=== PATIENT | female | born 1930 | race Caucasian/White ===

== ENCOUNTER 2016-11-27 19:18 | Emergency (ER) | payer MEDICARE, OTHER ==
[2016-11-27 21:54] LABS: Hematocrit 36 % (35-47); Hemoglobin 12.2 g/dl (12.0-16.0); Mean Corpuscular HGB Conc 33 g/dl (31-36); Mean Corpuscular Hemoglobin 30 pg (27-31); Mean Corpuscular Volume 90 fL (80-97); Mean Platelet Volume 9 um3 (7.4-10.4); Red Blood Count 4.06 10^6/ul (4.0-5.4); Red Cell Distribution Width 15 % (10.5-15); White Blood Count 6.8 10^3/ul (3.5-10.8)
[2016-11-27 21:55] VITALS: BP 135/60
[2016-11-27 22:08] LABS: BUN/Creatinine Ratio 22.8 (8-20); Calcium 9.3 mg/dL (8.6-10.3); EGFR African American 42.8 (>60); EGFR Non-African American 33.3 (>60); Potassium 3.9 mmol/L (3.5-5.0)
--- NOTE | 2016-11-27 22:09 | ED ---
I, Bruce,Darryn, scribed for Samson Hobbs MD on 11/27/16 at 2101 . Lower Extremity - HPI Summary HPI Summary: This 86 y/o female presents to ED for acute LLE ankle swelling and redness that was noted this afternoon while pt was putting on some lotion. Pt denies any known injury or pain at this moment. PMHx is significant for afib, which is currently controlled with coumadin. Other PMHx includes HTN, scoliosis, COPD with home oxygen use, hypothyroidism, HTN, and HLD. - History of Current Complaint Chief Complaint: EDExtremityLower Stated Complaint: LT LEG SWOLLEN Time Seen by Provider: 11/27/16 20:52 Hx Obtained From: Patient, Medical Records Mechanism Of Injury: Unknown Onset of Pain: Hours Pain Intensity: 6 Pain Scale Used: 0-10 Numeric Timing: Constant Location: Is Discrete @ - LLE ankle Associated Signs And Symptoms: Positive: Swelling, Redness Aggravating Factor(s): Nothing Alleviating Factor(s): Nothing Able to Bear Weight: Yes - Allergies/Home Medications Allergies/Adverse Reactions: Allergies Allergy/AdvReac Type Severity Reaction Status Date / Time Clarithromycin [From Biaxin] Allergy Rash Verified 11/27/16 19:48 PMH/Surg Hx/FS Hx/Imm Hx Endocrine/Hematology History: Reports: Hx Anticoagulant Therapy - coumadin Cardiovascular History: Reports: Hx Atrial Fibrillation, Hx Hypertension Denies: Hx Pacemaker/ICD Respiratory History: Reports: Hx Chronic Obstructive Pulmonary Disease (COPD), Other Respiratory Problems/Disorders - PNA Sensory History: Denies: Hx Hearing Aid Psychiatric History: Denies: Hx Panic Disorder - Surgical History Surgery Procedure, Year, and Place: KNEE 2002, HAND 20+YRS AGO, BACK SURGERY FOR SCOLIOSIS AGE 14, TOTAL HYSTERECTOMY, CATARACTS, RETINA SURGERY TO REPLACE A HOLE IN RETINA 1993(?) Infectious Disease History: No Infectious Disease History: Denies: Traveled Outside the [place] in Last 30 Days - Family History Known Family History: Positive: Cardiac Disease - Positive for CAD - Social History Alcohol Use: None Hx Substance Use: No Substance Use Type: Reports: None Hx Tobacco Use: No Smoking Status (MU): Never Smoked Tobacco Review of Systems Negative: Fever Positive: Other - LLE ankle swelling and erythema All Other Systems Reviewed And Are Negative: Yes Physical Exam Triage Information Reviewed: Yes Vital Signs On Initial Exam: Initial Vitals Temp Pulse Resp BP Pulse Ox 98.2 F 52 14 144/57 100 11/27/16 19:44 11/27/16 19:44 11/27/16 19:44 11/27/16 19:44 11/27/16 19:44 Vital Signs Reviewed: Yes Appearance: Positive: Well-Appearing, No Pain Distress Skin: Positive: Warm Head/Face: Positive: Normal Head/Face Inspection ENT: Positive: Hearing grossly normal Neck: Positive: Supple Respiratory/Lung Sounds: Positive: Breath Sounds Present Cardiovascular: Positive: RRR Abdomen Description: Positive: Nontender, Soft Musculoskeletal: Positive: Other - rt ankle mild swelling with patchy ecchymosis , non tender. from Neurological: Positive: Alert, Oriented to Person Place, Time Psychiatric: Positive: Affect/Mood Appropriate Diagnostics - Vital Signs Vital Signs Temp Pulse Resp BP Pulse Ox 11/27/16 19:44 98.2 F 52 14 144/57 100 - Laboratory Lab Results: Lab Results 11/27/16 11/27/16 11/27/16 Range/Units 21:47 21:47 21:47 WBC 6.8 (3.5-10.8) 10^3/ul RBC 4.06 (4.0-5.4) 10^6/ul Hgb 12.2 (12.0-16.0) g/dl Hct 36 (35-47) % MCV 90 (80-97) fL MCH 30 (27-31) pg MCHC 33 (31-36) g/dl RDW 15 (10.5-15) % Plt Count 145 L (150-450) 10^3/ul MPV 9 (7.4-10.4) um3 Neut % (Auto) 64.2 (38-83) % Lymph % (Auto) 22.3 L (25-47) % Andrew % (Auto) 11.1 H (1-9) % Eos % (Auto) 1.5 (0-6) % Baso % (Auto) 0.9 (0-2) % Absolute Neuts (auto) 4.3 (1.5-7.7) 10^3/ul Absolute Lymphs (auto) 1.5 (1.0-4.8) 10^3/ul Absolute Monos (auto) 0.7 (0-0.8) 10^3/ul Absolute Eos (auto) 0.1 (0-0.6) 10^3/ul Absolute Basos (auto) 0.1 (0-0.2) 10^3/ul Absolute Nucleated RBC 0.01 10^3/ul Nucleated RBC % 0.1 INR (Anticoag Therapy) 1.29 H (0.89-1.11) Sodium 135 (133-145) mmol/L Potassium 3.9 (3.5-5.0) mmol/L Chloride 95 L (101-111) mmol/L Carbon Dioxide 36 H (22-32) mmol/L Anion Gap 4 (2-11) mmol/L BUN 34 H (6-24) mg/dL Creatinine 1.49 H (0.51-0.95) mg/dL Est GFR ( Amer) 42.8 (>60) Est GFR (Non-Af Amer) 33.3 (>60) BUN/Creatinine Ratio 22.8 H (8-20) Glucose 97 (70-100) mg/dL Calcium 9.3 (8.6-10.3) mg/dL Result Diagrams: 11/27/16 21:47 11/27/16 21:47 Lab Statement: Any lab studies that have been ordered have been reviewed, and results considered in the medical decision making process. Re-Evaluation - Re-Evaluation First Eval Change: Improved Lower Extremity Course/Dx - Diagnoses Provider Diagnoses: Ankle swelling Discharge - Discharge Plan Condition: Improved Disposition: HOME Patient Education Materials: Swollen Ankle Joint (ED) Referrals: [facility]ERRAL [Outside] - 2 Days The documentation as recorded by the Bruce eugene Soohyun accurately reflects the service I personally performed and the decisions made by Anjel prieto David, MD.
== END 2016-11-27 22:38 | disposition home or self-care (01) ==
LOC: ED 19:18
DX: R60.0 Localized edema (principal)
CPT/HCPCS: 36415; 80048; 85025; 85610; 99282

== ENCOUNTER 2016-12-04 09:56 | Emergency (ER) | payer MEDICARE, OTHER ==
--- NOTE | 2016-12-04 11:16 | RAD ---
Indication: Cough, shortness of breath. 2 views of the chest are reviewed. Comparison is made with previous exam dated June 27, 2016. Cardiomegaly is noted. Lung head demonstrate no pleural fluid, pneumonia or pneumothorax. Pleural thickening is noted in the right lateral chest. Tortuous descending aorta is noted. IMPRESSION: No active cardiopulmonary disease is noted. No changes noted since prior exam.
[2016-12-04 12:23] VITALS: BP 138/70
--- NOTE | 2016-12-04 12:24 | UC ---
Daniel Tripp SooYoung, scribed for Daxa Winchester MD on 12/04/16 at 1039 . Respiratory Complaint HPI - HPI Summary HPI Summary: An 86 y/o F presents to [facility] with c/o productive cough and rhinorrhea onset four days ago. Associated sx: chest "pressure" described as feeling heavy, pedal edema which is baseline for pt. Denies rash. Pt was seen by her PCP's [facility] four days ago and was given a Zpack but she states feeling worse. She was also seen in ED on 11/27/2016 for ecchymosis on LLE. She says she's sleeping well at night. On 2L home oxygen. Denies PMHx: pulmonary edema, CHF, CT. - History of Current Complaint Stated Complaint: URI Time Seen by Provider: 12/04/16 10:28 Hx Obtained From: Patient, Family/Engineering Administrator - son Onset/Duration: Gradual Onset, Lasting Days, Still Present Timing: Constant Severity Initially: Moderate Severity Currently: Moderate Pain Intensity: 0 Pain Scale Used: 0-10 Numeric Character: Cough: Productive Aggravating Factors: Deep Breaths - Allergies/Home Medications Allergies/Adverse Reactions: Allergies Allergy/AdvReac Type Severity Reaction Status Date / Time Clarithromycin [From Biaxin] Allergy Rash Verified 11/27/16 19:48 PMH/Surg Hx/FS Hx/Imm Hx Previously Healthy: No Cardiovascular History Of: Reports: Cardiac Disorders - afib, Hypertension, Atrial Fibrillation Denies: Pacemaker/ICD Respiratory History Of: Reports: COPD GI/ History Of: Reports: Gastroesophageal Reflux Other History Of: Anticoagulant Therapy - coumadin - Surgical History Surgical History: Yes Surgery Procedure, Year, and Place: KNEE 2002, HAND 20+YRS AGO, BACK SURGERY FOR SCOLIOSIS AGE 14, TOTAL HYSTERECTOMY, CATARACTS, RETINA SURGERY TO REPLACE A HOLE IN RETINA 1993(?) - Family History Known Family History: Positive: Cardiac Disease - Positive for CAD - Social History Occupation: Retired Lives: With Family Alcohol Use: None Substance Use Type: None Smoking Status (MU): Never Smoked Tobacco Review of Systems ENT: Other - rhinorrhea Respiratory: Cough - productive Cardiovascular: Chest Pain - chest "heavy" Musculoskeletal: Edema - pedal edema, baseline All Other Systems Reviewed And Are Negative: Yes Physical Exam Triage Information Reviewed: Yes Appearance: Well-Nourished, Obese, Other: - sitting up in chair, leaning over. Looks tired. 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 chronicaly leans over). Vital Signs: Initial Vital Signs Temp 97.3 F 12/04/16 10:38 Pulse 48 12/04/16 10:38 Resp 18 12/04/16 10:38 BP 140/70 12/04/16 10:38 Pulse Ox 97 12/04/16 10:38 Vital Signs Reviewed: Yes Eye Exam: Normal ENT Exam: Normal - grossly normal Neck exam: Other - kyphotic. difficult to appreciate +/- jvd. Respiratory Exam: Other - Kyphotic, scoliotic spine appearance. Decreased Bilat Breath sounds. + scattered rhonchi. Cardiovascular: Positive: Bradycardia - HR correlates with R radial pulse Irregular vs some skipped beats Abdominal Exam: Other - obese, soft. No c/o pain. Musculoskeletal Exam: Normal Musculoskeletal: Positive: Strength Intact, Other: - BLE edema 2+. + chronic venous insuff changes BLE. Scattered hemosiderosis. Neurological Exam: Normal - nonfocal, grossly intact Psychological Exam: Normal - conversing easily and appropriately Psychological: Positive: Normal Response To Family Skin Exam: Normal - no visible or reported rash UC Diagnostic Evaluation - Radiology Xray Interpretation: No Acute Changes - IMPRESSION: No active cardiopulmonary dz is noted. No changes noted since prior exam. Radiology Interpretation Completed By: Radiologist - EKG Cardiac Rate: Bradycardia - 52 bpm Cardiac Rhythm: Sinus: Normal - similar compared with 01/2016 (in [facility]) Respiratory Course/Dx - Course Course Of Treatment: BP (140/70) but has current hypertension diagnosis. Upon detailed questioning (after chest xray), Ms. Degroot reports that she has been experiencing "heaviness" on her chest, similar to that of a train sitting on her chest. This has been going on the last couple days. Family reports that she experienced similar symptoms, but with L arm radiation approx 2 weeks ago, with spontaneous resolution (details are unclear). She is tired, weak. Unclear if sob perse, she does have copd chronic. She uses chronic O2 NC 2 L, 2 /2 copd. Reviewed CXR report (in [facility], [facility]). Influenza swab neg. EKG - sr 52 bpm. Similar January 2016. Takes coumadin 2/2 hx atrial fib. Occasionally takes oxycodone, not sure of last dose. Recommend transfer to ED for further evaluation and treatment. D/w pt and family, they express understanding and agreement. EMS notified by RN. - Differential Dx/Diagnosis Provider Diagnoses: Chest pressure. Cough - Physician Notification/Consults Discussed Patient Care With: Dr. Robles, ED physician Time Discussed With Above Provider: 11:48 Instructed by Provider To: Transfer - send to [facility] ED Discharge - Discharge Plan Condition: Guarded Disposition: TRANS HIGHER LVL OF CARE FAC Discharge Disposition Comment: [facility] ED Referrals: Daniel Regan MD [Primary Care Provider] - Additional Instructions: Please follow up with your primary care provider per routine. Seek medical attention for worsening problems in the meantime. The documentation as recorded by the Daniel eugene SooYoung accurately reflects the service I personally performed and the decisions made by me, Daxa Winchester MD.
== END 2016-12-04 12:20 | disposition short-term general hospital (02) ==
LOC: UCEAST 09:56
DX: R07.89 Other chest pain (principal); I48.91 Unspecified atrial fibrillation; I10 Essential (primary) hypertension; J44.9 Chronic obstructive pulmonary disease, unspecified; K21.9 Gastro-esophageal reflux disease without esophagitis; Z79.01 Long term (current) use of anticoagulants; E66.9 Obesity, unspecified; R05 Cough; Z99.81 Dependence on supplemental oxygen; Z88.3 Allergy status to other anti-infective agents; Z68.31 Body mass index [BMI] 31.0-31.9, adult
CPT/HCPCS: 71020; 87502; 93005; 99213; G0463

== ENCOUNTER 2016-12-04 12:55 | Observation (INO) | payer MEDICARE, OTHER ==
[2016-12-04] MEDS ORDERED: Albuterol 2.5 MG/3 ML NEB.SOL* (0.083%) INH ONE (13:23)
[2016-12-04] MEDS ORDERED: Aspirin Low Dose CHEW TAB* 81 MG PO ONE (13:23)
[2016-12-04] MEDS ORDERED: methylPREDNISolone SOD SUCC* 125 MG 2 ML VIAL IV ONE (13:36)
[2016-12-04 13:44] LABS: Hematocrit 37 % (35-47); Hemoglobin 11.9 g/dl (12.0-16.0); Mean Corpuscular HGB Conc 33 g/dl (31-36); Mean Corpuscular Hemoglobin 30 pg (27-31); Mean Corpuscular Volume 91 fL (80-97); Mean Platelet Volume 9 um3 (7.4-10.4); Red Blood Count 4.02 10^6/ul (4.0-5.4); Red Cell Distribution Width 15 % (10.5-15); White Blood Count 7.8 10^3/ul (3.5-10.8)
[2016-12-04 14:00] LABS: Albumin 3.9 g/dL (3.2-5.2); BUN/Creatinine Ratio 22.6 (8-20); Calcium 9.8 mg/dL (8.6-10.3); EGFR African American 63.4 (>60); EGFR Non-African American 49.3 (>60); Globulin 2.9 g/dL (2-4); Magnesium 2.3 mg/dL (1.9-2.7); Potassium 3.8 mmol/L (3.5-5.0); Total Bilirubin 0.6 mg/dL (0.2-1.0); Total Protein 6.8 g/dL (6.4-8.9)
[2016-12-04 14:02] LABS: Troponin I 0.02 ng/mL (<0.04)
[2016-12-04 14:53] LABS: T4 9.97 mcg/mL (6.09-12.23)
[2016-12-04 14:54] LABS: TSH (Thyroid Stimulating Horm) 1.46 mcIU/mL (0.34-5.60)
--- NOTE | 2016-12-04 16:10 | ED ---
Jeny Tripp Michael, scribed for Ale Robles MD on 12/04/16 at 1338 . HPI Chest Pain - HPI Summary HPI Summary: 86 y/o female was BIBA to the ED from [facility] for chest pressure and bradycardia to the 40's. The pt is presenting with intermittent episodes of CP that she describes as pressure for the last 3 days. Currently at the ED, the pt reports that the CP has slightly alleviated since arriving to the ED. The pt also c/o a productive cough for the last 3 days and SOB for which she was started on azithromycin 3 days ago by her PCP, who phoned in the RX for the pt. One week ago, the pt was at the ED presenting with bilat LE pain and swelling, which is still present, but eval for DVT was neg. In urgent care influenza swab and CXR were both negative. Pt has home O2 2L, is also DM and has restless leg syndrome. - History of Current Complaint Chief Complaint: EDChestPainROMI Time Seen by Provider: 12/04/16 13:09 Hx Obtained From: Patient, EMS, Medical Records Onset/Duration: Started Days Ago, Still Present Timing: Intermittent Initial Severity: Moderate Current Severity: Mild Pain Intensity: 3 Pain Scale Used: 0-10 Numeric Chest Pain Location: Diffuse Chest Pain Radiates: No Character: Pressure/Squeezing Aggravating Factor(s): Nothing Alleviating Factor(s): Nothing Associated Signs and Symptoms: Positive: Chest Pain, Shortness of Breath, Swelling - bilat LE, Productive Cough, Other: - Bilat LE pain - Allergy/Home Medications Allergies/Adverse Reactions: Allergies Allergy/AdvReac Type Severity Reaction Status Date / Time Clarithromycin [From Biaxin] Allergy Rash Verified 11/27/16 19:48 PMH/Surg Hx/FS Hx/Imm Hx Endocrine/Hematology History: Reports: Hx Anticoagulant Therapy - coumadin, Hx Thyroid Disease - hypothyroidism Cardiovascular History: Reports: Hx Atrial Fibrillation, Hx Hypertension Denies: Hx Pacemaker/ICD Respiratory History: Reports: Hx Asthma, Hx Chronic Obstructive Pulmonary Disease (COPD), Other Respiratory Problems/Disorders - PNA Sensory History: Denies: Hx Hearing Aid Psychiatric History: Denies: Hx Panic Disorder - Surgical History Surgery Procedure, Year, and Place: KNEE 2002, HAND 20+YRS AGO, BACK SURGERY FOR SCOLIOSIS AGE 14, TOTAL HYSTERECTOMY, CATARACTS, RETINA SURGERY TO REPLACE A HOLE IN RETINA 1993(?) Infectious Disease History: No Infectious Disease History: Denies: Traveled Outside the [place] in Last 30 Days - Family History Known Family History: Positive: Cardiac Disease - Social History Occupation: Retired Lives: Alone Alcohol Use: None Hx Substance Use: No Substance Use Type: Reports: None Hx Tobacco Use: No Smoking Status (MU): Never Smoked Tobacco Review of Systems Constitutional: Negative Positive: Chest Pain Positive: Shortness Of Breath, Cough Gastrointestinal: Negative Positive: Myalgia, Other - bilat LE pain and swelling Neurological: Negative Psychological: Normal All Other Systems Reviewed And Are Negative: Yes Physical Exam Triage Information Reviewed: Yes Vital Signs On Initial Exam: Initial Vitals Temp Pulse Resp BP Pulse Ox 97.3 F 51 18 145/69 100 12/04/16 12:57 12/04/16 12:57 12/04/16 12:57 12/04/16 12:57 12/04/16 12:57 Vital Signs Reviewed: Yes Appearance: Positive: Well-Nourished, Ill-Appearing, Pain Distress Skin: Positive: Warm, Skin Color Reflects Adequate Perfusion, Dry, Other - ecchymosis bilat LE. brawny discoloration bilat LE. Head/Face: Positive: Normal Head/Face Inspection Eyes: Positive: EOMI, Conjunctiva Clear ENT: Positive: Normal ENT inspection, Hearing grossly normal. Negative: Muffled /hoarse voice Neck: Positive: Supple Respiratory/Lung Sounds: Positive: Breath Sounds Present, Wheezes - expiratory Cardiovascular: Positive: Pulses are Symmetrical in both Upper and Lower Extremities, Bradycardia. Negative: Murmur Abdomen Description: Positive: Nontender, Soft. Negative: Splenomegaly Musculoskeletal: Positive: Edema Left, Edema Right, Other - severe kyphosis.. Negative: Shahriar Sign Left, Shahriar Sign Right Neurological: Positive: Sensory/Motor Intact, Alert, Oriented to Person Place, Time. Negative: Facial Droop, Focal Deficit @, Slurred Speech Psychiatric: Positive: Affect/Mood Appropriate Diagnostics - Vital Signs Vital Signs Temp Pulse Resp BP Pulse Ox 12/04/16 12:57 97.3 F 51 18 145/69 100 - Laboratory Lab Results: Lab Results 12/04/16 12/04/16 12/04/16 Range/Units 13:24 13:24 13:24 WBC 7.8 (3.5-10.8) 10^3/ul RBC 4.02 (4.0-5.4) 10^6/ul Hgb 11.9 L (12.0-16.0) g/dl Hct 37 (35-47) % MCV 91 (80-97) fL MCH 30 (27-31) pg MCHC 33 (31-36) g/dl RDW 15 (10.5-15) % Plt Count 145 L (150-450) 10^3/ul MPV 9 (7.4-10.4) um3 Neut % (Auto) 72.5 (38-83) % Lymph % (Auto) 15.9 L (25-47) % [place] % (Auto) 9.6 H (1-9) % Eos % (Auto) 1.7 (0-6) % Baso % (Auto) 0.3 (0-2) % Absolute Neuts (auto) 5.7 (1.5-7.7) 10^3/ul Absolute Lymphs (auto) 1.2 (1.0-4.8) 10^3/ul Absolute Monos (auto) 0.8 (0-0.8) 10^3/ul Absolute Eos (auto) 0.1 (0-0.6) 10^3/ul Absolute Basos (auto) 0 (0-0.2) 10^3/ul Absolute Nucleated RBC 0 10^3/ul Nucleated RBC % 0 INR (Anticoag Therapy) 2.22 H (0.89-1.11) APTT 41.8 H (26.0-36.3) seconds D-Dimer, Quantitative < 200 (Less Than 230) ng/mL Sodium 138 (133-145) mmol/L Potassium 3.8 (3.5-5.0) mmol/L Chloride 101 (101-111) mmol/L Carbon Dioxide 33 H (22-32) mmol/L Anion Gap 4 (2-11) mmol/L BUN 24 (6-24) mg/dL Creatinine 1.06 H (0.51-0.95) mg/dL Est GFR ( Amer) 63.4 (>60) Est GFR (Non-Af Amer) 49.3 (>60) BUN/Creatinine Ratio 22.6 H (8-20) Glucose 97 (70-100) mg/dL Lactic Acid (0.5-2.0) mmol/L Calcium 9.8 (8.6-10.3) mg/dL Magnesium 2.3 (1.9-2.7) mg/dL Total Bilirubin 0.60 (0.2-1.0) mg/dL AST 23 (13-39) U/L ALT 22 (7-52) U/L Alkaline Phosphatase 65 (34-104) U/L Total Creatine Kinase 78 (10-223) U/L CK-MB (CK-2) 4.7 (0.6-6.3) ng/mL Troponin I 0.02 (<0.04) ng/mL B-Natriuretic Peptide ( - 100) pg/mL Total Protein 6.8 (6.4-8.9) g/dL Albumin 3.9 (3.2-5.2) g/dL Globulin 2.9 (2-4) g/dL Albumin/Globulin Ratio 1.3 (1-3) TSH 1.46 (0.34-5.60) mcIU/mL Thyroxine (T4) 9.97 (6.09-12.23) mcg/mL 12/04/16 12/04/16 Range/Units 13:24 13:24 WBC (3.5-10.8) 10^3/ul RBC (4.0-5.4) 10^6/ul Hgb (12.0-16.0) g/dl Hct (35-47) % MCV (80-97) fL MCH (27-31) pg MCHC (31-36) g/dl RDW (10.5-15) % Plt Count (150-450) 10^3/ul MPV (7.4-10.4) um3 Neut % (Auto) (38-83) % Lymph % (Auto) (25-47) % [place] % (Auto) (1-9) % Eos % (Auto) (0-6) % Baso % (Auto) (0-2) % Absolute Neuts (auto) (1.5-7.7) 10^3/ul Absolute Lymphs (auto) (1.0-4.8) 10^3/ul Absolute Monos (auto) (0-0.8) 10^3/ul Absolute Eos (auto) (0-0.6) 10^3/ul Absolute Basos (auto) (0-0.2) 10^3/ul Absolute Nucleated RBC 10^3/ul Nucleated RBC % INR (Anticoag Therapy) (0.89-1.11) APTT (26.0-36.3) seconds D-Dimer, Quantitative (Less Than 230) ng/mL Sodium (133-145) mmol/L Potassium (3.5-5.0) mmol/L Chloride (101-111) mmol/L Carbon Dioxide (22-32) mmol/L Anion Gap (2-11) mmol/L BUN (6-24) mg/dL Creatinine (0.51-0.95) mg/dL Est GFR ( Amer) (>60) Est GFR (Non-Af Amer) (>60) BUN/Creatinine Ratio (8-20) Glucose (70-100) mg/dL Lactic Acid 0.6 (0.5-2.0) mmol/L Calcium (8.6-10.3) mg/dL Magnesium (1.9-2.7) mg/dL Total Bilirubin (0.2-1.0) mg/dL AST (13-39) U/L ALT (7-52) U/L Alkaline Phosphatase (34-104) U/L Total Creatine Kinase (10-223) U/L CK-MB (CK-2) (0.6-6.3) ng/mL Troponin I (<0.04) ng/mL B-Natriuretic Peptide 159 H ( - 100) pg/mL Total Protein (6.4-8.9) g/dL Albumin (3.2-5.2) g/dL Globulin (2-4) g/dL Albumin/Globulin Ratio (1-3) TSH (0.34-5.60) mcIU/mL Thyroxine (T4) (6.09-12.23) mcg/mL Result Diagrams: 12/04/16 13:24 12/04/16 13:24 Lab Statement: Any lab studies that have been ordered have been reviewed, and results considered in the medical decision making process. - EKG EK EKG Rhythm: Sinus Bradycardia - 50 EKG Interpretation: 1st degree AV block. Prolonged QT. nml IV. nml axis. no acute changes. Re-Evaluation - Re-Evaluation 1st Re-Evaluation Time: 15:02 Change: Unchanged Comment: discussed with patient the plan of possbile admission or discharge home. Pt is still wheezing and CP has slightly alleviated. The CP is rated a 3 out of 10. Chest Pain Course/Dx - Course Course Of Treatment: Discussed patient care with Dr. Childs (Hospitalist) at 1509. The patient will be admitted to [facility] and accepted by Dr. Childs. - Chest Pain Differential Diagnosis/HQI/PQRI: Acute VT, ACS, CHF, Lower Respiratory Infection , Pulmonary Embolism - Diagnoses Provider Diagnoses: Chest pain, COPD exacerbation Discharge - Discharge Plan Condition: Stable Disposition: ADMITTED TO [facility] Discharge Disposition Comment: admission accepted by Dr. Childs. Referrals: Daniel Regan MD [Primary Care Provider] - The documentation as recorded by the Jeny eugene Michael accurately reflects the service I personally performed and the decisions made by me, Ale Robles MD.
[2016-12-04] MEDS ORDERED: Levalbuterol 0.63MG/3ML NEB INH PRN (16:13)
[2016-12-04] MEDS ORDERED: Azithromycin IV(*) 500 MG in NS 0.9% 250 ML* 250 ML IVPB ONE (16:28)
[2016-12-04] MEDS ORDERED: Warfarin TAB(*) 4 MG PO SCH (17:00)
[2016-12-04] MEDS: Albuterol/Ipratropium NEB.SOL* Albuterol 2.5 MG/Ipratropium 0.5 MG 3 ML INH SCH (19:52)
[2016-12-04] MEDS ORDERED: Atorvastatin* 20 MG TAB PO SCH (21:00)
[2016-12-04] MEDS ORDERED: Gabapentin CAP(*) 400 MG PO SCH (21:00)
[2016-12-04] MEDS ORDERED: rOPINIRole TAB* 1 MG PO SCH (21:00)
--- NOTE | 2016-12-04 23:35 | HP ---
HISTORY AND PHYSICAL: DATE OF ADMISSION: 12/04/16 PRIMARY CARE PHYSICIAN: Dr. Regan. CHIEF COMPLAINT: URI symptoms and chest pressure. HISTORY OF PRESENT ILLNESS: Ms. Degroot is a pleasant 86-year-old female with a past medical history of hypertension; COPD, on chronic 2 L of oxygen; AFib, on Coumadin; GERD; hypothyroidism; and restless leg syndrome who presents to the hospital with 3 days of URI symptoms and chest congestion. The patient states her symptoms began around 3 days ago with a productive cough, nasal congestion, and rhinorrhea. Cough was productive of yellow phlegm, nonbloody. Symptoms persisted and the patient also noticed that she would have chest pressure on and off. She states this has been going on intermittently. She does not notice any worsening with exertion. In fact, she thinks it happens more at rest. When her symptoms started, she was prescribed Z-Evan by her PCP and she has been taking this; however, her symptoms do not seem to be improving much, so [facility] and there was concern about her chest symptoms there as well as they noted her being in sinus bradycardia with the heart rate in the 40s, so she was sent to the hospital for further evaluation. The patient's son states that the patient also had an episode about a week and a half ago, where she noticed some chest pressure, left arm numbness that lasted for about an hour and then resolved. She states that felt different than the chest congestion she has been currently having with this respiratory infection. She has not had any fever or chills. She has had some nausea; however, this occurred prior to the onset of her respiratory symptoms. No abdominal pain. Chronic lower extremity edema seems a bit improved at the moment. She feels like her shortness of breath is worse than it is at baseline. PAST MEDICAL HISTORY: 1. Hypertension. 2. AFib, on Coumadin. 3. COPD, on 2 L. 4. GERD. 5. Polio. 6. Hyperlipidemia. 7. Lower extremity edema. PAST SURGICAL HISTORY: 1. Knee surgery. 2. Hand surgery. 3. Back surgery. 4. Hysterectomy. 5. Cataract surgery. HOME MEDICATIONS: 1. Ranitidine 150 mg by mouth 3 times daily as needed for indigestion. 2. Loratadine 10 mg by mouth daily. 3. Xopenex 1 neb inhaled 3 times daily as needed for shortness of breath or wheezing. 4. Amiodarone 100 mg by mouth daily. 5. Atenolol 25 mg by mouth daily. 6. Combivent 1 puff inhaled 4 times daily. 7. Lisinopril 10 mg by mouth daily. 8. Synthroid 100 mcg by mouth daily. 9. Gabapentin 400 mg by mouth daily. 10. Lasix 80 mg by mouth in the morning, 20 mg by mouth in the afternoon. 11. Vitamin B12 1000 mcg IM monthly. 12. Ropinirole 2 mg by mouth at bedtime. 13. Coumadin 4 mg by mouth daily. 14. Rosuvastatin 10 mg by mouth at bedtime. 15. Montelukast 10 mg by mouth daily. ALLERGIES: To CLARITHROMYCIN. FAMILY HISTORY: Significant for her mother with CAD and father with CAD. SOCIAL HISTORY: Negative for tobacco abuse, although she has been her own second- hand smoke. Denies any alcohol or illicit drug use. REVIEW OF SYSTEMS: A 12-point review of systems negative except for that as noted in the HPI. PHYSICAL EXAMINATION GENERAL: The patient is a pleasant elderly female, lying in bed, in no apparent distress. VITAL SIGNS: On admission, temperature 97.3, heart rate of 51, respiratory rate of 18, O2 saturation 100% on 2 L, and blood pressure 145/69. HEENT: Pupils equal, round, reactive to light and accommodation. Anicteric sclerae. Moist mucous membranes. No sinus tenderness to palpation. LUNGS: With some poor air movement. Slight wheezing heard in the lower lung head bilaterally on expiration. CARDIOVASCULAR: Regular rate and rhythm. Normal heart rate. No murmurs, gallops, or rubs. ABDOMEN: Soft, nontender, and nondistended. Bowel sounds positive. EXTREMITIES: Some mild lower extremity edema. Chronic skin changes. Some ecchymoses. NEUROLOGIC: The patient is alert and oriented x3. No focal neurological deficits. DIAGNOSTIC STUDIES/LAB DATA: White blood cell count of 7.8, hematocrit of 37, and platelets of 145. INR of 2.22. D-dimer is negative. Sodium 138, potassium 3.8, chloride of 101, carbon dioxide of 33, BUN of 24, creatinine of 1.06, glucose of 97, and lactic acid 0.6. LFTs within normal limits. Troponin 0.02. B-natriuretic peptide of 159. TSH of 1.46. EKG personally reviewed shows sinus bradycardia. No ischemic changes. Chest x-ray from urgent care reviewed. I cannot appreciate any clear consolidations; however, due to her scoliosis, the film was poor. ASSESSMENT AND PLAN: Upper respiratory infection symptoms, likely chronic obstructive pulmonary disease exacerbation and chest discomfort in an 86-year- old female with a past medical history of atrial fibrillation, on Coumadin; hypertension; chronic obstructive pulmonary disease; and gastroesophageal reflux disease. 1. Chronic obstructive pulmonary disease exacerbation: Seems like this is probably a viral infection. We will give the patient one dose of azithromycin, which should complete the patient's course. We will check a procalcitonin. Seems like this is most likely a viral etiology. We will write the patient for round-the- clock DuoNebs with soto Dotson. Start her on oral steroids. She received 125 mg of Solu-Medrol here in the emergency department. She is on her home oxygen at this time. 2. Chest pressure: This is probably due to her upper respiratory infection and chronic obstructive pulmonary disease exacerbation. However, the episode from a week and a half does sound somewhat concerning. She did not have any ischemic changes on her EKG presently. We will monitor the patient on telemetry and trend her troponins. She should probably get a stress test; however, it would be more beneficial if she was fully recovered from this respiratory illness. This will need to be scheduled as an outpatient after discharge. 3. Bradycardia: Heart rate is currently in the 60s; however, reportedly had a lower heart rate at [facility]. We will hold her beta claudy for now. 4. Atrial fibrillation: Continue Coumadin at 4 mg by mouth every evening which the patient is currently taking through tomorrow. We will continue her amiodarone, but hold the atenolol as above. 5. Hypothyroidism: Continue home Synthroid. 6. Hypertension: Continue lisinopril. 7. Lower extremity edema: Unclear if the patient has a diagnosis of congestive heart failure. Her BNP is relatively normal. She is on a significant dose of Lasix. We will continue this for now. 8. DVT prophylaxis: Coumadin. 9. Code status: The patient is a DNR/DNI. MOLST form was filled out with the family present. TIME SPENT: Total time spent on this admission, 45 minutes with over half the time spent [id number] with the patient in counseling and coordinating care. CC: Dr. Regan * [id number]/CPS #: [id number] CARLY
[2016-12-05] MEDS: Albuterol/Ipratropium NEB.SOL* Albuterol 2.5 MG/Ipratropium 0.5 MG 3 ML INH SCH ×2 (01:17→07:29)
[2016-12-05] MEDS ORDERED: Levothyroxine TAB* 100 MCG TAB PO SCH (06:00)
[2016-12-05 07:39] VITALS: BP 127/65
[2016-12-05] MEDS ORDERED: predniSONE TAB* 20 MG PO SCH (09:00)
[2016-12-05] MEDS ORDERED: Furosemide TAB* 40 MG PO SCH (09:00)
[2016-12-05] MEDS ORDERED: Amiodarone TAB* 200 MG PO SCH (09:00)
[2016-12-05] MEDS ORDERED: Lisinopril TAB* 10 MG PO SCH (09:00)
[2016-12-05] MEDS ORDERED: Montelukast Sodium TAB* 10 MG PO SCH (09:00)
--- NOTE | 2016-12-05 09:18 | DCNOTE ---
Patient states she is feeling at her baseline today. A little "tight" this morning as she usually is which improved with neb. Denies any further chest pressure/congestion. On exam, lungs clear, no wheezing appreciated, RRR, mild LE edema Suspect viral infection leading to COPD exacerbation. No further ABx needed at this time. Will discharge home on PO steroids. I am a bit concerned about her chest pain that occurred a week a half ago as this sounded more like a possible cardiac etiology. Have asked her and her son to follow-up with PCP and consider outpatient stress test if indicated once her respiratory issues resolve.
[2016-12-05] MEDS ORDERED: Furosemide TAB* 20 MG PO SCH (12:00)
--- NOTE | 2016-12-06 06:00 | DS ---
DISCHARGE SUMMARY: DATE OF ADMISSION: 12/04/16 DATE OF DISCHARGE: 12/05/16 PRIMARY CARE PHYSICIAN: Dr. Regan PRINCIPAL DISCHARGE DIAGNOSES: 1. Chronic obstructive pulmonary disease exacerbation. 2. Chest discomfort. SECONDARY DIAGNOSES: 1. Hypertension. 2. Atrial fibrillation, on Coumadin. 3. Chronic obstructive pulmonary disease, on 2 liters of oxygen. 4. Gastroesophageal reflux disease. 5. Polio. 6. Hyperlipidemia. 7. Lower extremity edema. DISCHARGE MEDICATION REGIMEN: 1. Prednisone 40 mg by mouth daily. 2. Singulair 10 mg by mouth daily. 3. Crestor 10 mg by mouth at bedtime. 4. Warfarin 4 mg by mouth daily. 5. ReQuip 2 mg by mouth at bedtime. 6. Vitamin B12 1000 mcg IM monthly. 7. Gabapentin 400 mg by mouth at bedtime. 8. Synthroid 100 mcg by mouth daily. 9. Lisinopril 10 mg by mouth daily. 10. Combivent 1 aerosol inhaled 4 times daily as needed for shortness of breath or wheezing. 11. Atenolol 25 mg by mouth daily. 12. Amiodarone 100 mg by mouth daily. 13. Xopenex 1 neb inhaled 3 times daily as needed for shortness of breath or wheezing. 14. Loratadine 10 mg by mouth daily. 15. Ranitidine 150 mg by mouth 3 times daily as needed for indigestion. 16. Vitamin D3 1000 units by mouth daily. 17. Clotrimazole/betamethasone 1 application topical daily as needed for rash. 18. Lasix 60 mg by mouth 2 times daily. 19. Nystatin 1 application topical 3 times daily as needed for rash. 20. Budesonide 1 neb inhaled 4 times daily. STUDIES DONE DURING HOSPITALIZATION: Chest x-ray: Impression: No active cardiopulmonary disease is noted. HISTORY OF PRESENT ILLNESS AND HOSPITAL SUMMARY: Please see my full history and physical for full details. Briefly, Ms. Degroot is a pleasant 86-year-old female with a past medical history as above, who presented to the hospital with 3 days of URI symptoms and chest congestion. Patient was seen at Urgent Care after not much significant improvement on azithromycin as an outpatient. There she complained of some chest pressure and discomfort, was also noticed to have some bradycardia and was sent to the hospital for further evaluation. Patient' s troponin returned and were negative. She is monitored on telemetry. It was felt the patient likely had a COPD exacerbation due to her viral etiology. Her procalcitonin was negative and chest x-ray was negative. She was started on steroids and [id number] DuoNebs. Breathing was back to baseline the following day. This chest discomfort was likely due to her infection; however, the patient did report an episode about a week and a half ago where she had some different chest pressure and left arm numbness that lasted for about an hour and then resolved. The patient would benefit from a stress test as an outpatient, which can be arranged by the PCP after this acute illness has resolved. Total time spent on this discharge was 45 minutes. This is a summary of the hospitalization. Please see the full medical record for further details. CC: Dr. Regan.* [id number]/CPS #: [id number] [email or web address]
== END 2016-12-05 10:10 | disposition home or self-care (01) ==
LOC: ED 12:55 → MEDTELE 15:10 → ED 16:25
PROVIDERS: ADMIT Hospitalist; ATTEND Hospitalist
DX: J44.1 Chronic obstructive pulmonary disease with (acute) exacerbation (principal); R07.9 Chest pain, unspecified; R00.1 Bradycardia, unspecified; I48.91 Unspecified atrial fibrillation; Z79.01 Long term (current) use of anticoagulants; K21.9 Gastro-esophageal reflux disease without esophagitis; R60.9 Edema, unspecified; R06.02 Shortness of breath; Z86.12 Personal history of poliomyelitis; Z79.899 Other long term (current) drug therapy; Z88.1 Allergy status to other antibiotic agents
CPT/HCPCS: 36415; 80053; 82550; 82553; 83605; 83735; 83880; 84145; 84436; 84443; 84484; 85025; 85379; 85610; 85730; 87040; 93005; 94640; 96365; 96375; 99284; A9270-GY; G0378; J0456; J2930; J7512

== ENCOUNTER → 2017-01-14 21:23 | Emergency (ER) | payer MEDICARE, OTHER ==
[~2017-01-14 21:23] MED LIST: Cephalexin CAP* 500 MG PO ONE
[2017-01-14 23:04] VITALS: BP 136/71
--- NOTE | 2017-01-14 23:05 | ED ---
Lower Extremity - HPI Summary HPI Summary: Patient presents with concerns of infection in her right lower leg after being cut by a pair of scissors she dropped 3 days ago. She has chronically swollen legs and fluid retention so she has had a hard time telling if she has swelling from the wound. She feels it is mildly warm and red. She denies fever, chills, or drainage for the wound, but has been on prednisone for the past three weeks. She is weight bearing at her baseline. - History of Current Complaint Chief Complaint: EDExtremityLower Stated Complaint: RIGHT LEG COMPLAINT Time Seen by Provider: 01/14/17 22:31 Hx Obtained From: Patient, Family/Brakes Inspector Mechanism Of Injury: Blunt Trauma Onset of Pain: Days Onset/Duration: Still Present Severity Initially: Moderate Severity Currently: Moderate Pain Intensity: 7 Timing: Constant Location: Is Discrete @ - right calf Associated Signs And Symptoms: Positive: Swelling - mild, Redness - mild Aggravating Factor(s): Nothing Alleviating Factor(s): Nothing Able to Bear Weight: Yes - Allergies/Home Medications Allergies/Adverse Reactions: Allergies Allergy/AdvReac Type Severity Reaction Status Date / Time Clarithromycin [From Biaxin] Allergy Rash Verified 01/14/17 21:33 PMH/Surg Hx/FS Hx/Imm Hx Endocrine/Hematology History: Reports: Hx Anticoagulant Therapy - coumadin, Hx Thyroid Disease - hypothyroidism Cardiovascular History: Reports: Hx Atrial Fibrillation, Hx Hypertension Denies: Hx Pacemaker/ICD Respiratory History: Reports: Hx Asthma, Hx Chronic Obstructive Pulmonary Disease (COPD), Other Respiratory Problems/Disorders - PNA Sensory History: Reports: Hx Contacts or Glasses Denies: Hx Hearing Aid Opthamlomology History: Reports: Hx Contacts or Glasses Psychiatric History: Denies: Hx Panic Disorder - Surgical History Surgery Procedure, Year, and Place: KNEE 2002, HAND 20+YRS AGO, BACK SURGERY FOR SCOLIOSIS AGE 14, TOTAL HYSTERECTOMY, CATARACTS, RETINA SURGERY TO REPLACE A HOLE IN RETINA 1993(?) Infectious Disease History: No Infectious Disease History: Denies: Traveled Outside the [place] in Last 30 Days - Family History Known Family History: Positive: Unknown, Cardiac Disease - Social History Occupation: Retired Lives: With Family Alcohol Use: None Hx Substance Use: No Substance Use Type: Reports: None Hx Tobacco Use: No Smoking Status (MU): Never Smoked Tobacco Review of Systems Negative: Fever, Chills Positive: Edema - mild. Negative: Myalgia, Decreased ROM Positive: Other - healing scabs Negative: Paresthesia, Numbness All Other Systems Reviewed And Are Negative: Yes Physical Exam Triage Information Reviewed: Yes Vital Signs On Initial Exam: Initial Vitals Temp Pulse Resp BP Pulse Ox 97.2 F 55 16 136/94 98 01/14/17 21:31 01/14/17 21:31 01/14/17 21:31 01/14/17 21:31 01/14/17 21:31 Vital Signs Reviewed: Yes Appearance: Positive: Well-Appearing, No Pain Distress, Obese Skin: Positive: Warm, Skin Color Reflects Adequate Perfusion, Dry, Tender - she is tender to palpation at baseline but is tender near wound, Soft, Erythema @ - mild erythema 3mm around the diameter of the pea sized scabs. Negative: Weeping Skin/Lesions Head/Face: Positive: Normal Head/Face Inspection Eyes: Positive: EOMI, STEPHANIE, Conjunctiva Clear Respiratory/Lung Sounds: Positive: Breath Sounds Present Cardiovascular: Positive: RRR Musculoskeletal: Positive: Strength/ROM Intact, Pain @ - TTP at baseline in bilateral ankles, Edema Left - baseline swelling with mild R>L ankle swelling, Edema Right Neurological: Positive: Sensory/Motor Intact, Alert, Oriented to Person Place, Time, NV Bundle Intact Distally Psychiatric: Positive: Affect/Mood Appropriate AVPU Assessment: Alert Diagnostics - Vital Signs Vital Signs Temp Pulse Resp BP Pulse Ox 01/14/17 22:27 53 96 01/14/17 21:31 97.2 F 55 16 136/94 98 - Laboratory Lab Statement: Any lab studies that have been ordered have been reviewed, and results considered in the medical decision making process. Lower Extremity Course/Dx - Diagnoses Differential Diagnosis/HQI/PQRI: Positive: Cellulitis, Contusion, Gout, Infection, Phlebitis, Sprain, Strain Provider Diagnoses: Cellulitis Discharge - Discharge Plan Condition: Stable Disposition: HOME Prescriptions: Cephalexin CAP* [Keflex CAP*] 500 mg PO QID #26 cap Patient Education Materials: Cellulitis (ED) Referrals: Daniel Regan MD [Primary Care Provider] - Additional Instructions: Please take the medication prescribed until it is completely gone. Follow-up with your primary care provider on Monday for evaluation to insure you are improving. Return to the emergency department if symptoms worsen.
== END | disposition home or self-care (01) ==
LOC: ED 21:23
DX: L03.115 Cellulitis of right lower limb (principal); E03.9 Hypothyroidism, unspecified; I48.91 Unspecified atrial fibrillation; Z79.01 Long term (current) use of anticoagulants; I10 Essential (primary) hypertension; J44.9 Chronic obstructive pulmonary disease, unspecified; Z90.710 Acquired absence of both cervix and uterus; Z98.49 Cataract extraction status, unspecified eye; Z88.1 Allergy status to other antibiotic agents
CPT/HCPCS: 99282; A9270-GY

== ENCOUNTER 2017-02-08 20:12 | Inpatient (IN) | payer MEDICARE, OTHER ==
--- NOTE | 2017-02-08 21:40 | RAD ---
Indication: Shortness of breath. COPD. Cardiovascular disease. Polio. Comparison: No relevant prior exams available [place] [facility] [place]. Technique: Sitting AP and lateral chest views. Report: Elevated lung volumes and both diffuse mild prominence of the interstitial markings and patchy rarefaction of the mid to upper lung zone interstitial markings. Chronic RIGHT lateral pleural thickening. No suspicious focal pulmonary lesion, compelling alveolar consolidation, pleural effusion, pneumothorax. Cardiomegaly. Unremarkable central pulmonary vasculature and mediastinal contours accounting for RIGHT convex curve of the thoracic spine and rightward rotation. IMPRESSION: Stigmata of chronic obstructive pulmonary disease and emphysema. Cardiomegaly. No compelling acute cardiopulmonary process evident.
[2017-02-08 21:55] LABS: Hematocrit 29 % (35-47); Hemoglobin 9.7 g/dl (12.0-16.0); Mean Corpuscular HGB Conc 34 g/dl (31-36); Mean Corpuscular Hemoglobin 32 pg (27-31); Mean Corpuscular Volume 93 fL (80-97); Mean Platelet Volume 10 um3 (7.4-10.4); Red Blood Count 3.09 10^6/ul (4.0-5.4); Red Cell Distribution Width 16 % (10.5-15); White Blood Count 5.2 10^3/ul (3.5-10.8)
--- NOTE | 2017-02-08 21:59 | ED ---
Erik Tripp Rebecca, scribed for Samson Hobbs MD on 02/08/17 at 2039 . Complex/Multi-Sys Presentation - HPI Summary HPI Summary: Pt is an 86 y/o F who presents to ED stating "I just feel yucky all over" since yesterday. Confirms she was at baseline 2 days ago. Reports acute on chronic SOB , generalized weakness and fatigue. Additionally notes hypotension and bradycardia per visiting home nurse that came at 1500 today. Sx aggravated and alleviated by nothing. Denies nausea. States she has not experienced any pain. Daughter reports discussing with the pt's PCP who advised that she come to the ED. No prior similar episodes of sx. - History Of Current Complaint Chief Complaint: EDWeakness Time Seen by Provider: 02/08/17 20:27 Hx Obtained From: Patient Onset/Duration: Lasting Days - 1 day, Still Present Severity Currently: None Location: Negative Aggravating Factor(s): Nothing Alleviating Factor(s): Nothing Associated Signs And Symptoms: Positive: Weakness - Generalized, SOB - acute on chronic, Other - Fatigue, hypotension, bradycardia. Negative: Nausea - Allergies/Home Medications Allergies/Adverse Reactions: Allergies Allergy/AdvReac Type Severity Reaction Status Date / Time Clarithromycin [From Biaxin] Allergy Rash Verified 01/14/17 21:33 Home Medications: Home Medications Combivent Respimat (NF) 20 - 100 mcg INH Q4HR PRN 02/09/17 [History Confirmed ] Levobunolol HCl 0.63 mg INH SEE INSTRUCTIONS PRN 02/09/17 [History Confirmed ] Nystatin 1 dose TOPICAL BID PRN 02/09/17 [History Confirmed 02/09/17] Vitamin D-3 1,000 unit PO DAILY 02/09/17 [History Confirmed 02/09/17] PMH/Surg Hx/FS Hx/Imm Hx Endocrine/Hematology History: Reports: Hx Anticoagulant Therapy - coumadin, Hx Thyroid Disease - hypothyroidism Cardiovascular History: Reports: Hx Atrial Fibrillation, Hx Hypertension Denies: Hx Pacemaker/ICD Respiratory History: Reports: Hx Asthma, Hx Chronic Obstructive Pulmonary Disease (COPD), Other Respiratory Problems/Disorders - PNA Sensory History: Reports: Hx Contacts or Glasses Denies: Hx Hearing Aid Opthamlomology History: Reports: Hx Contacts or Glasses Psychiatric History: Denies: Hx Panic Disorder - Surgical History Surgery Procedure, Year, and Place: KNEE 2002, HAND 20+YRS AGO, BACK SURGERY FOR SCOLIOSIS AGE 14, TOTAL HYSTERECTOMY, CATARACTS, RETINA SURGERY TO REPLACE A HOLE IN RETINA 1993(?) Infectious Disease History: Denies: Traveled Outside the [place] in Last 30 Days - Family History Known Family History: Positive: Cardiac Disease - Social History Alcohol Use: None Hx Substance Use: No Substance Use Type: Reports: None Hx Tobacco Use: No Smoking Status (MU): Never Smoked Tobacco Review of Systems Positive: Fatigue, Other - Generalized weakness Positive: Other - Hypotension and bradycardia per pt's visiting home nurse Positive: Shortness Of Breath - acute on chronic Negative: Nausea All Other Systems Reviewed And Are Negative: Yes Physical Exam Triage Information Reviewed: Yes Vital Signs On Initial Exam: Initial Vitals Temp Pulse Resp BP Pulse Ox 95.5 F 42 18 80/48 100 02/08/17 20:18 02/08/17 20:18 02/08/17 20:18 02/08/17 20:18 02/08/17 20:18 Vital Signs Reviewed: Yes Appearance: Positive: No Pain Distress, Ill-Appearing Skin: Positive: Warm Head/Face: Positive: Normal Head/Face Inspection Eyes: Positive: STEPHANIE ENT: Positive: Hearing grossly normal Neck: Positive: Supple Respiratory/Lung Sounds: Positive: Clear to Auscultation, Breath Sounds Present Cardiovascular: Positive: Bradycardia Abdomen Description: Positive: Nontender, Soft Bowel Sounds: Positive: Present Musculoskeletal: Positive: Strength/ROM Intact, Edema Left - 4+ boilat lower ext edema, Edema Right Neurological: Positive: Alert, Oriented to Person Place, Time Psychiatric: Positive: Affect/Mood Appropriate Diagnostics - Vital Signs Vital Signs Temp Pulse Resp BP Pulse Ox 02/08/17 20:18 95.5 F 42 18 80/48 100 - Laboratory Lab Results: Lab Results 02/08/17 Range/Units 21:45 WBC 5.2 (3.5-10.8) 10^3/ul RBC 3.09 L (4.0-5.4) 10^6/ul Hgb 9.7 L (12.0-16.0) g/dl Hct 29 L (35-47) % MCV 93 (80-97) fL MCH 32 H (27-31) pg MCHC 34 (31-36) g/dl RDW 16 H (10.5-15) % Plt Count 148 L (150-450) 10^3/ul MPV 10 (7.4-10.4) um3 Neut % (Auto) 61.8 (38-83) % Lymph % (Auto) 23.6 L (25-47) % [place] % (Auto) 12.0 H (1-9) % Eos % (Auto) 1.8 (0-6) % Baso % (Auto) 0.8 (0-2) % Absolute Neuts (auto) 3.2 (1.5-7.7) 10^3/ul Absolute Lymphs (auto) 1.2 (1.0-4.8) 10^3/ul Absolute Monos (auto) 0.6 (0-0.8) 10^3/ul Absolute Eos (auto) 0.1 (0-0.6) 10^3/ul Absolute Basos (auto) 0 (0-0.2) 10^3/ul Absolute Nucleated RBC 0 10^3/ul Nucleated RBC % 0.1 Result Diagrams: 02/08/17 21:45 02/08/17 21:45 Lab Statement: Any lab studies that have been ordered have been reviewed, and results considered in the medical decision making process. - Radiology CXR Xray Interpretation: No Acute Changes - Stigmata of chronic obstructive pulmonary disease and emphysema. Cardiomegaly. No compelling acute cardiopulmonary process evident. Radiology Interpretation Completed By: Radiologist - EKG 2042 Cardiac Rate: Bradycardia - 43 bpm EKG Rhythm: Sinus Bradycardia EKG Interpretation: No STEMI Re-Evaluation - Re-Evaluation First Eval Re-Evaluation Time: 22:50 Change: Improved Comment: Pt is feeling a little better. Discussed results with pt. pt with bradycardia and worsening renal function, elevated inr on beta blockers d/w hospitalist will admit Complex Multi-Symp Course/Dx Course Of Treatment: Pt is an 86 y/o F who presents to ED stating "I just feel yucky all over" since yesterday. Reports acute on chronic SOB, generalized weakness and fatigue. Additionally notes hypotension and bradycardia per visiting home nurse that came at 1500 today. Denies nausea. States she has not experienced any pain. No prior similar episodes of sx. CXR reveals no acute findings. EKG reveals sinus iwllie w/o STEMI. 1st and 2nd INR of 7.77, BNP of 161 , Troponin of 0.00. - Diagnoses Provider Diagnoses: Bradycardia, Hyperprothrombinemia - Physician Notifications Discussed Care Of Patient With: Arnel Montano Time Discussed With Above Provider: 22:50 Instructed by Provider To: Admit As Inpatient - Critical Care Time Critical Care Time: 30-74 min Discharge - Discharge Plan Condition: Fair Disposition: ADMITTED TO [facility] The documentation as recorded by the Erik eugene Rebecca accurately reflects the service I personally performed and the decisions made by me, Samson Hobbs MD.
[2017-02-08 22:10] LABS: Albumin 3.6 g/dL (3.2-5.2); BUN/Creatinine Ratio 17.9 (8-20); EGFR African American 27.6 (>60); EGFR Non-African American 21.4 (>60); Globulin 2.5 g/dL (2-4); Magnesium 2.4 mg/dL (1.9-2.7); Potassium 4.2 mmol/L (3.5-5.0); Total Bilirubin 0.5 mg/dL (0.2-1.0); Total Protein 6.1 g/dL (6.4-8.9)
[2017-02-09] MEDS ORDERED: Nystatin TOP POWDER* 15 GM BTL TOPICAL PRN (01:47)
[2017-02-09] MEDS ORDERED: COMBIVENT RESPIMAT INH PRN (01:47)
[2017-02-09] MEDS ORDERED: Phytonadione Oral Solution* 5 MG/25 ML UDC PO ONE ×2 (02:40→13:36)
[2017-02-09] MEDS: NS 0.9% 1000 ML* 1,000 ML IV SCH ×4 (03:16→14:32)
[2017-02-09] MEDS ORDERED: ceFAZolin VIAL(*) 1 GM in NS 0.9% 50 ML* 50 ML IVPB SCH (04:00)
[2017-02-09] MEDS: Levothyroxine TAB* 100 MCG TAB PO SCH (05:32)
[2017-02-09 05:48] LABS: Hematocrit 27 % (35-47); Mean Corpuscular HGB Conc 33 g/dl (31-36); Mean Corpuscular Hemoglobin 31 pg (27-31); Mean Corpuscular Volume 94 fL (80-97); Mean Platelet Volume 10 um3 (7.4-10.4); Red Cell Distribution Width 16 % (10.5-15); White Blood Count 4.7 10^3/ul (3.5-10.8)
[2017-02-09] MEDS ORDERED: Heparin VIAL(*) 5000 UNITS/ML VIAL (FIVE THOUSAND) SUBCUT SCH (06:00)
[2017-02-09 06:08] LABS: BUN/Creatinine Ratio 18.4 (8-20); Calcium 8.7 mg/dL (8.6-10.3); EGFR African American 28.5 (>60); EGFR Non-African American 22.1 (>60); Potassium 4.2 mmol/L (3.5-5.0)
[2017-02-09] MEDS: Budesonide NEB* 0.5 MG/2 ML NEB.SOLN INH SCH ×4 (08:06→19:32)
[2017-02-09] MEDS: Montelukast Sodium TAB* 10 MG PO SCH (08:23)
[2017-02-09] MEDS: Amiodarone TAB* 200 MG PO SCH (08:23)
[2017-02-09] MEDS: Cholecalciferol TAB* 1000 UNITS PO SCH (08:23)
[2017-02-09] MEDS ORDERED: Atenolol TAB* 25 MG PO SCH (09:00)
--- NOTE | 2017-02-09 10:33 | PN ---
Subjective Date of Service: 02/09/17 Interval History: Patient seen and examined at bedside. Ms. Degroot reports feeling better today, stating yesterday she felt more fatigued and weaker. She denies fever/chills, chest pain, increased shortness of breath, n/v. She reports, "everyone keeps telling me my temperature is low but I feel fine." She does report that her left leg is very tender; it is red with a hematoma to the menendez. The patient states she dropped a candy bowl on the leg a few days ago. In regards to the patient's high INR, her son states that he organizes all of her meds and helps with cooking food and that there were no changes recently in diet or accidental warfarin doses. Patient's dose may have been recently increased but patient was unable to tell me when that may have occurred. Telemetry: sinus willie 40-50 Family History: Unchanged from Admission Social History: Unchanged from Admission Past Medical History: Unchanged from Admission Objective Active Medications: Amiodarone HCl (Cordarone Tab*) 100 mg PO DAILY [facility] Last Admin: 02/09/17 08:23 Dose: 100 mg Budesonide (Pulmicort Neb*) 0.5 mg INH RT.QID [facility] Last Admin: 02/09/17 10:23 Dose: 0.5 mg Cholecalciferol (Vitamin D Tab*) 1,000 units PO DAILY [facility] Last Admin: 02/09/17 08:23 Dose: 1,000 units Gabapentin (Neurontin Cap(*)) 400 mg PO BEDTIME [facility] Sodium Chloride (Ns 0.9% 1000 Ml*) 1,000 mls @ 75 mls/hr IV PER RATE [facility] Last Admin: 02/09/17 05:15 Dose: 75 mls/hr Cefazolin Sodium 1 gm/ Sodium (Chloride) 50 mls @ 200 mls/hr IVPB Q12H [facility] Levalbuterol HCl (Xopenex 0.63mg/3ml Neb*) 0.63 mg INH Q4H PRN PRN Reason: SOB/WHEEZING Levothyroxine Sodium (Synthroid Tab*) 100 mcg PO 0600 [facility] Last Admin: 02/09/17 05:32 Dose: 100 mcg Montelukast Sodium (Singulair Tab*) 10 mg PO DAILY [facility] Last Admin: 02/09/17 08:23 Dose: 10 mg Non-Formulary Medication (Combivent Respimat (Nf)) 20 mcg INH Q4H PRN PRN Reason: SOB/WHEEZING Nystatin (Nystatin Top Powder*) 1 applic TOPICAL BID PRN PRN Reason: RASH Ropinirole HCl (Requip Tab*) 2 mg PO BEDTIME [facility] Vital Signs 02/09/17 02/09/17 02/09/17 02:46 02:53 03:00 Temperature Pulse Rate 44 45 45 Respiratory Rate Blood Pressure 63/47 90/61 78/63 (mmHg) O2 Sat by Pulse 98 98 99 Oximetry 02/09/17 02/09/17 02/09/17 03:15 03:20 03:30 Temperature Pulse Rate 44 45 45 Respiratory Rate Blood Pressure 98/72 86/42 70/48 (mmHg) O2 Sat by Pulse 99 98 98 Oximetry 02/09/17 02/09/17 02/09/17 03:37 03:41 03:46 Temperature 94.1 F Pulse Rate Respiratory 20 Rate Blood Pressure 114/73 (mmHg) O2 Sat by Pulse Oximetry 02/09/17 02/09/17 02/09/17 04:00 05:22 07:43 Temperature 96 F 96.1 F Pulse Rate 45 46 47 Respiratory 20 18 Rate Blood Pressure 94/43 100/46 119/102 (mmHg) O2 Sat by Pulse 99 99 100 Oximetry 02/09/17 02/09/17 02/09/17 08:00 08:09 09:41 Temperature Pulse Rate 46 Respiratory 20 Rate Blood Pressure 184/97 118/86 (mmHg) O2 Sat by Pulse 98 Oximetry 02/09/17 10:29 Temperature Pulse Rate 45 Respiratory 18 Rate Blood Pressure (mmHg) O2 Sat by Pulse 99 Oximetry Oxygen Devices in Use Now: Nasal Cannula Appearance: Elderly female, lying in bed, NAD Eyes: No Scleral Icterus Ears/Nose/Mouth/Throat: Mucous Membranes Moist Neck: NL Appearance and Movements; NL JVP Respiratory: Symmetrical Chest Expansion and Respiratory Effort, - - diminished breath sounds Cardiovascular: RRR - bradycardic Abdominal: NL Sounds; No Tenderness; No Distention Extremities: - - BLE edema, 3+ pitting, LLE with erythema and tenderness, ecchymosis and bullae Neurological: Alert and Oriented x 3, NL Muscle Strength and Tone Lines/Tubes/Other Access: Clean, Dry and Intact Peripheral IV Nutrition: Taking PO's Result Diagrams: 02/09/17 05:38 02/09/17 05:38 Additional Lab and Data: Lab Results 02/08/17 Range/Units 21:45 WBC 5.2 (3.5-10.8) 10^3/ul RBC 3.09 L (4.0-5.4) 10^6/ul Hgb 9.7 L (12.0-16.0) g/dl Hct 29 L (35-47) % MCV 93 (80-97) fL MCH 32 H (27-31) pg MCHC 34 (31-36) g/dl RDW 16 H (10.5-15) % Plt Count 148 L (150-450) 10^3/ul MPV 10 (7.4-10.4) um3 Neut % (Auto) 61.8 (38-83) % Lymph % (Auto) 23.6 L (25-47) % [place] % (Auto) 12.0 H (1-9) % Eos % (Auto) 1.8 (0-6) % Baso % (Auto) 0.8 (0-2) % Absolute Neuts (auto) 3.2 (1.5-7.7) 10^3/ul Absolute Lymphs (auto) 1.2 (1.0-4.8) 10^3/ul Absolute Monos (auto) 0.6 (0-0.8) 10^3/ul Absolute Eos (auto) 0.1 (0-0.6) 10^3/ul Absolute Basos (auto) 0 (0-0.2) 10^3/ul Absolute Nucleated RBC 0 10^3/ul Nucleated RBC % 0.1 Assess/Plan/Problems-Billing Assessment: Ms. Degroot is an 86 yo female with a PMH of HTN, afib, oxygen dependent COPD, GERD, polio, HLD, and lower extremity edema who presented to the ED on 02/08 with bradycardia, hypothermia, and hypotension as well as an elevated INR. - Patient Problems (1) Bradycardia Code(s): R00.1 - BRADYCARDIA, UNSPECIFIED Comment: Suspect secondary to home atenolol, which is on hold Patient is sinus willie on telemetry, HR 40s-50s Currently asymptomatic, continue to monitor (2) Hypothermia Code(s): T68.XXXA - HYPOTHERMIA, INITIAL ENCOUNTER Comment: Rectal temp this AM 94.3 and earlier documented at 93. Ella hugger initiated. Patient also with notable hypotension and bradycardia - will add on CRP, cortisol, TSH. Continue to monitor. (3) Cellulitis Code(s): L03.90 - CELLULITIS, UNSPECIFIED Comment: Questionable cellulitis to LLE - patient dropped a candy jar on her leg and has an INR of 7 Less likely a DVT, given patient's coagulopathy Continue cefazolin, check CRP (4) Coagulopathy Comment: INR 7.98 Received vitamin K Unclear as to why INR is elevated Continue to hold warfarin (5) Hypotension Comment: Normally hypertensive Home atenolol, lisinopril, furosemide on hold Continue IVF Check UA, cortisol, TSH, CRP (6) Acute kidney injury Status: Acute Code(s): N17.9 - ACUTE KIDNEY FAILURE, UNSPECIFIED Comment: Suspect acute on chronic injury, perhaps secondary to diuretic use Continue IVF Recheck BMP tomorrow (7) Anemia Code(s): D64.9 - ANEMIA, UNSPECIFIED Comment: HH lower than previously May be secondary to LLE swelling and ecchymosis from recent leg injury from candy jar Continue to trend Check stool occult (8) Hypothyroidism Code(s): E03.9 - HYPOTHYROIDISM, UNSPECIFIED Comment: Continue levothyroxine Check TSH (9) Atrial fibrillation Code(s): I48.91 - UNSPECIFIED ATRIAL FIBRILLATION Comment: Currently in sinus rhythm Continue amiodarone, atenolol held for bradycardia Warfarin held due to elevated INR (10) COPD (chronic obstructive pulmonary disease) Code(s): J44.9 - CHRONIC OBSTRUCTIVE PULMONARY DISEASE, UNSPECIFIED Comment: Does not appear to be in exacerbation On chronic O2, 2Lnc Continue Combivent, montelukast, prn nebulizers (11) HLD (hyperlipidemia) Code(s): E78.5 - HYPERLIPIDEMIA, UNSPECIFIED Comment: Diet controlled Not on statin (12) DVT prophylaxis Comment: Chronically on warfarin INR supratherapeutic Status and Disposition: OBV to inpatient admit.
[2017-02-09] MEDS: Levalbuterol 0.63MG/3ML NEB INH PRN ×3 (10:38→19:32)
[2017-02-09] MEDS ORDERED: cefTRIAXone VIAL(*) 1,000 MG in NS 0.9% 50 ML* 50 ML IVPB ONE (10:46)
[2017-02-09 11:05] LABS: C Reactive Protein 2.79 mg/L (< 5.00)
--- NOTE | 2017-02-09 12:50 | HP ---
CC: Dr. Regan in [place] * HISTORY AND PHYSICAL: DATE OF ADMISSION: 02/09/17 CHIEF COMPLAINT: Weakness. HISTORY OF PRESENT ILLNESS: The patient is an 86-year-old woman who was sent over to the hospital via her home health aide who said she saw her today and said her blood pressure was low and she was bradycardic. The patient has felt tired and weak for over a week. She has arthritis and that seemed to increase some pain as well. She notes shortness of breath but states that is not anything different, she has this all the time. She denies any fevers or chills. She has a diminished appetite, however. She has no trouble with her bowel movements. There has been no changes in her meds, but she does state her home health aide discussed these medications with her PCP and perhaps there were some changes. In the ED, the patient was found to be hypotensive with the blood pressure systolic in the 70s and the heart rate consistently in the 40s. It should be noted that she was also coagulopathic with an INR of 7 and she did say her Coumadin level was recently increased. Furthermore, she has been bradycardic when admitted to this hospital before. PAST MEDICAL HISTORY: Significant for hypertension, atrial fibrillation on Coumadin, COPD on 2 L of oxygen at home, GERD, polio, hyperlipidemia, lower extremity edema. PAST SURGICAL HISTORY: Significant for knee surgery, hand surgery, back surgery , hysterectomy and cataract surgery. MEDICATIONS: 1. Combivent Respimat every 4 hours p.r.n. 2. Levobunolol mg inhaled as directed. 3. Nystatin 1 dose topically twice daily as needed. 4. Vitamin D3 1000 units daily. 5. Budesonide 1 nebulizer inhaled 4 times a day. 6. Atenolol 25 mg daily. 7. Amiodarone 100 mg daily. 8. Gabapentin 400 mg at bedtime. 9. Furosemide 60 mg twice daily. 10. Vitamin B12 1000 mcg monthly. 11. Clotrimazole/betamethasone apply topically daily as needed. 12. Singulair 10 mg daily. 13. Lisinopril 10 mg daily. 14. Levothyroxine 100 mcg daily. 15. Warfarin as directed. 16. Ropinirole 2 mg at bedtime. ALLERGIES: She has an allergy/adverse reaction to CLARITHROMYCIN. FAMILY HISTORY: Mother had coronary artery disease, father coronary artery disease. SOCIAL HISTORY: No tobacco, no alcohol or recreational drug use. Her daughter , Shandra, is her healthcare proxy. REVIEW OF SYSTEMS: A 14-point review of systems was completed with the patient. All pertinent positives and negatives are in the history of present illness, otherwise negative. PHYSICAL EXAMINATION GENERAL: Pleasant woman lying in bed, in no distress. VITAL SIGNS: Blood pressure 114/73, pulse oxygenation 95%, heart rate 75 beats per minute, temperature 94.1 degrees. HEENT: Normocephalic and atraumatic. Pupils are equal, round, and reactive to light. Moist mucous membranes. NECK: Supple. No JVD, bruits, palpable thyroid or lymphadenopathy. CHEST: Diminished breath sounds bilaterally. CARDIOVASCULAR: S1, S2 appreciated. ABDOMEN: Positive bowel sounds in all 4 quadrants. Obese, soft, nontender, and nondistended. EXTREMITIES: No cyanosis or clubbing. She has got bilateral edema pitting and her left lower extremity is now erythematous, it is red, swollen and tender with some bullae. NEUROLOGIC: She is alert and oriented x3. Moves all extremities. SKIN: Other than the aforementioned problems with her lower extremities, no other abnormalities. LABORATORY DATA: White count 5.2, hemoglobin 9.7, hematocrit 29, platelets are 148,000. Sodium 131, potassium 4.2, chloride 96, CO2 30, BUN 39, creatinine 2.18, glucose 92, INR 7.77. IMAGING: Chest x-ray shows stigmata of COPD and emphysema, cardiomegaly but no compelling evidence for acute cardiopulmonary process going on. EKG shows sinus bradycardia at 42 beats per minute, first degree AV block, nonspecific ST-T wave changes. ASSESSMENT AND PLAN: 1. Bradycardia and hypertension probably secondary to atenolol, we will place the patient on monitor, we will hold atenolol. We will give the patient fluids for her hypertension but gently at 75 cc an hour because I think she may be prone to heart failure. 2. Coagulopathy, recently had her Coumadin increased. We will give her 5 mg of vitamin K. Recheck in the a.m. and monitor. 3. Acute renal failure. We are giving fluids 75 cc an hour because of uncertainty if she will go into heart failure. This is the new onset and maybe that she is over diuresed, also causing the hypotension. 4. Anemia. This seems to be worse than usual. Check again in a.m. No evidence of bleeding at this time. 5. Hypothyroidism, stable. Continue Synthroid. 6. FEN. Regular diet. 7. DVT prophylaxis. She is actually coagulopathic at this time. 8. Questionable cellulitis. The patient does have a left lower extremity that is red and swollen. She did mention that a candy jar fell on her left lower extremity, I doubt it is a deep venous thrombosis with her INR being supratherapeutic, but assuming cellulitis is in the differential, I will start Ancef 1 g IV every 8 hours. 9. The patient is a do not resuscitate. TIME SPENT: Over 80 minutes were spent on this H and P, more than 45 minutes of which were spent in direct [id number] contact with the patient in evaluation, physical exam, counseling, and coordination of care. [id number]/CPS #: [id number] CARLY
[2017-02-09] MEDS ORDERED: NS 0.9% 500 ML BAG* 500 ML IV SCH (13:00)
[2017-02-09 13:07] LABS: TSH (Thyroid Stimulating Horm) 1.04 mcIU/mL (0.34-5.60)
[2017-02-09] MEDS: Hydrocortisone INJ* 100 MG VIAL IV SCH ×2 (16:08→21:22)
[2017-02-09] MEDS: ceFAZolin VIAL(*) 1 GM in NS 0.9% 50 ML* 50 ML IVPB SCH (16:08)
[2017-02-09 18:14] LABS: Urine Bacteria Absent (Absent); Urine Bilirubin Negative (Negative); Urine Glucose Negative (Negative); Urine Nitrite Negative (Negative)
--- NOTE | 2017-02-09 18:29 | RAD ---
Indication: Post traumatic LEFT lower extremity edema. Purple raised region at the mid menendez. At the mid menendez. Concern for potential loculated fluid collection. Comparison: No relevant prior exams available on the [facility] [place] for comparison. Technique: Ultrasound of the anterior LEFT menendez corresponding with the region of clinical concern. REPORT AND IMPRESSION: Corresponding with the region of clinical concern in addition to marked subcutaneous edema there is a loculated 2.0 x 0.9 x 1.9 cm fluid collection with a fluid fluid level devoid of intrinsic vascularity consistent with blood products/hematoma given the clinical context.
[2017-02-09] MEDS: rOPINIRole TAB* 1 MG PO SCH (21:20)
[2017-02-09] MEDS: Gabapentin CAP(*) 400 MG PO SCH (21:21)
[2017-02-10] MEDS: ceFAZolin VIAL(*) 1 GM in NS 0.9% 50 ML* 50 ML IVPB SCH ×2 (04:26→16:14)
[2017-02-10] MEDS: Levothyroxine TAB* 100 MCG TAB PO SCH (05:25)
[2017-02-10] MEDS: NS 0.9% 1000 ML* 1,000 ML IV SCH ×2 (05:27→20:28)
[2017-02-10 06:35] LABS: Hematocrit 29 % (35-47); Hemoglobin 9.5 g/dl (12.0-16.0); Mean Corpuscular HGB Conc 33 g/dl (31-36); Mean Corpuscular Hemoglobin 31 pg (27-31); Mean Corpuscular Volume 95 fL (80-97); Mean Platelet Volume 10 um3 (7.4-10.4); Red Blood Count 3.03 10^6/ul (4.0-5.4); Red Cell Distribution Width 16 % (10.5-15); White Blood Count 6.5 10^3/ul (3.5-10.8)
[2017-02-10 06:48] LABS: BUN/Creatinine Ratio 18.6 (8-20); Calcium 8.8 mg/dL (8.6-10.3); EGFR African American 40.6 (>60); EGFR Non-African American 31.5 (>60); Potassium 4.6 mmol/L (3.5-5.0)
[2017-02-10] MEDS: Budesonide NEB* 0.5 MG/2 ML NEB.SOLN INH SCH ×4 (07:28→20:47)
[2017-02-10] MEDS: Levalbuterol 0.63MG/3ML NEB INH PRN ×2 (07:29→14:53)
[2017-02-10] MEDS: Hydrocortisone INJ* 100 MG VIAL IV SCH (08:27)
--- NOTE | 2017-02-10 08:27 | PN ---
Subjective Date of Service: 02/10/17 Interval History: Patient seen and examined at bedside. Ms. Degroot does not endorse dizziness, fever/chills, CP, SOB. She feels her breathing is at baseline. She reports feeling better than previously. She and her son state that she had been experiencing some intermittent dizziness at home but it had worsened in these last few days. She denies any recent changes to her medications other than a warfarin adjustment (dose unknown). Telemetry: sinus bradycardia 45 Family History: Unchanged from Admission Social History: Unchanged from Admission Past Medical History: Unchanged from Admission Objective Active Medications: Amiodarone HCl (Cordarone Tab*) 100 mg PO DAILY [facility] Last Admin: 02/09/17 08:23 Dose: 100 mg Budesonide (Pulmicort Neb*) 0.5 mg INH RT.QID [facility] Last Admin: 02/10/17 07:28 Dose: 0.5 mg Cholecalciferol (Vitamin D Tab*) 1,000 units PO DAILY [facility] Last Admin: 02/09/17 08:23 Dose: 1,000 units Gabapentin (Neurontin Cap(*)) 400 mg PO BEDTIME [facility] Last Admin: 02/09/17 21:21 Dose: 400 mg Sodium Chloride (Ns 0.9% 1000 Ml*) 1,000 mls @ 75 mls/hr IV PER RATE [facility] Last Admin: 02/10/17 05:27 Dose: 75 mls/hr Cefazolin Sodium 1 gm/ Sodium (Chloride) 50 mls @ 200 mls/hr IVPB Q12H [facility] Last Admin: 02/10/17 04:26 Dose: 200 mls/hr Levalbuterol HCl (Xopenex 0.63mg/3ml Neb*) 0.63 mg INH Q4H PRN PRN Reason: SOB/WHEEZING Last Admin: 02/10/17 07:29 Dose: 0.63 mg Levothyroxine Sodium (Synthroid Tab*) 100 mcg PO 0600 [facility] Last Admin: 02/10/17 05:25 Dose: 100 mcg Montelukast Sodium (Singulair Tab*) 10 mg PO DAILY [facility] Last Admin: 02/09/17 08:23 Dose: 10 mg Non-Formulary Medication (Combivent Respimat (Nf)) 20 mcg INH Q4H PRN PRN Reason: SOB/WHEEZING Nystatin (Nystatin Top Powder*) 1 applic TOPICAL BID PRN PRN Reason: RASH Ropinirole HCl (Requip Tab*) 2 mg PO BEDTIME [facility] Last Admin: 02/09/17 21:20 Dose: 2 mg Vital Signs 02/09/17 02/09/17 02/09/17 12:12 12:27 12:29 Temperature 96.6 F Pulse Rate 45 Respiratory 16 Rate Blood Pressure 71/33 82/56 82/54 (mmHg) O2 Sat by Pulse 100 Oximetry 02/09/17 02/09/17 02/09/17 13:42 14:53 15:20 Temperature 95.2 F 95.8 F Pulse Rate 49 51 Respiratory 18 24 Rate Blood Pressure 108/84 (mmHg) O2 Sat by Pulse 98 100 Oximetry 02/09/17 02/09/17 02/09/17 16:22 17:15 19:34 Temperature 95.3 F Pulse Rate 52 Respiratory 18 Rate Blood Pressure (mmHg) O2 Sat by Pulse 99 99 Oximetry 02/09/17 02/09/17 02/09/17 19:59 20:00 21:21 Temperature 97.8 F Pulse Rate 68 Respiratory 24 16 18 Rate Blood Pressure 119/59 (mmHg) O2 Sat by Pulse Oximetry 02/09/17 02/09/17 02/10/17 22:06 23:36 03:00 Temperature 97.3 F 97.7 F 97.1 F Pulse Rate 63 62 Respiratory 16 20 Rate Blood Pressure 127/62 148/71 (mmHg) O2 Sat by Pulse 90 96 Oximetry 02/10/17 02/10/17 02/10/17 04:04 07:22 07:30 Temperature 97.0 F Pulse Rate 62 52 52 Respiratory 16 16 20 Rate Blood Pressure 148/71 126/62 (mmHg) O2 Sat by Pulse 95 100 99 Oximetry Oxygen Devices in Use Now: Nasal Cannula Appearance: Elderly female, OOB to chair, NAD Eyes: No Scleral Icterus Ears/Nose/Mouth/Throat: Mucous Membranes Moist Neck: NL Appearance and Movements; NL JVP Respiratory: Symmetrical Chest Expansion and Respiratory Effort, - - diminished Cardiovascular: RRR - bradycardic, distant heart sounds Abdominal: NL Sounds; No Tenderness; No Distention Extremities: - - 3+ LE edema, pitting - ecchymosis and bullae to LLE, significant kyphoscoliosis Neurological: Alert and Oriented x 3, NL Muscle Strength and Tone Lines/Tubes/Other Access: Clean, Dry and Intact Peripheral IV Nutrition: Taking PO's Result Diagrams: 02/10/17 06:10 02/10/17 06:10 Additional Lab and Data: Lab Results 02/08/17 Range/Units 21:45 WBC 5.2 (3.5-10.8) 10^3/ul RBC 3.09 L (4.0-5.4) 10^6/ul Hgb 9.7 L (12.0-16.0) g/dl Hct 29 L (35-47) % MCV 93 (80-97) fL MCH 32 H (27-31) pg MCHC 34 (31-36) g/dl RDW 16 H (10.5-15) % Plt Count 148 L (150-450) 10^3/ul MPV 10 (7.4-10.4) um3 Neut % (Auto) 61.8 (38-83) % Lymph % (Auto) 23.6 L (25-47) % [place] % (Auto) 12.0 H (1-9) % Eos % (Auto) 1.8 (0-6) % Baso % (Auto) 0.8 (0-2) % Absolute Neuts (auto) 3.2 (1.5-7.7) 10^3/ul Absolute Lymphs (auto) 1.2 (1.0-4.8) 10^3/ul Absolute Monos (auto) 0.6 (0-0.8) 10^3/ul Absolute Eos (auto) 0.1 (0-0.6) 10^3/ul Absolute Basos (auto) 0 (0-0.2) 10^3/ul Absolute Nucleated RBC 0 10^3/ul Nucleated RBC % 0.1 Assess/Plan/Problems-Billing Assessment: Ms. Degroot is an 86 yo female with a PMH of HTN, afib, oxygen dependent COPD, GERD, polio, HLD, and lower extremity edema who presented to the ED on 02/08 with bradycardia, hypothermia, and hypotension as well as an elevated INR. - Patient Problems (1) Adrenal insufficiency Code(s): E27.40 - UNSPECIFIED ADRENOCORTICAL INSUFFICIENCY Comment: AM cortisol 2.87 Patient started on hydrocortisone 50 mg q8 yesterday Discussed in side consult with Dr. Grant, who stated he would be willing to see her as an outpatient. He also recommended switching patient to equivalent dose of dexamethasone and performing cosyntropin test tomorrow 250 mcg, also recommended adding on adrenal 21 hydroxylase. (2) Bradycardia Code(s): R00.1 - BRADYCARDIA, UNSPECIFIED Comment: Patient was reportedly dizzy at home - unclear if this is due to bradycardia, hypotension. Now asymptomatic. Home atenolol on hold Patient is sinus willie on telemetry, HR 50s Continue to monitor (3) Hypothermia Code(s): T68.XXXA - HYPOTHERMIA, INITIAL ENCOUNTER Comment: Now resolved Suspect secondary to adrenal insuffiency (4) Cellulitis Code(s): L03.90 - CELLULITIS, UNSPECIFIED Comment: Questionable cellulitis to LLE - patient dropped a candy jar on her leg and was admitted with an INR of 7 Small collection of blood seen on US, leg improved in appearance today Continue cefazolin (5) Coagulopathy Comment: Resolved May have been falsely elevated secondary to cold body temperature (6) Lower extremity edema Code(s): R60.0 - LOCALIZED EDEMA Comment: Appears to have chronic lower extremity edema Takes large doses of furosemide at home (80 mg per our records) Confirm with PCP records, records requested Daily weights (7) Hypotension Comment: Resolved (8) Acute kidney injury Status: Acute Code(s): N17.9 - ACUTE KIDNEY FAILURE, UNSPECIFIED Comment: Suspect acute on chronic injury, perhaps secondary to diuretic use Improved (9) Anemia Code(s): D64.9 - ANEMIA, UNSPECIFIED Comment: HH stable May be secondary to LLE swelling and ecchymosis from recent leg injury from candy jar Continue to trend Check stool occult (10) Hypothyroidism Code(s): E03.9 - HYPOTHYROIDISM, UNSPECIFIED Comment: Continue levothyroxine TSH 1.04 (11) Atrial fibrillation Code(s): I48.91 - UNSPECIFIED ATRIAL FIBRILLATION Comment: Currently in sinus rhythm Continue amiodarone, atenolol held for bradycardia Restart warfarin (12) COPD (chronic obstructive pulmonary disease) Code(s): J44.9 - CHRONIC OBSTRUCTIVE PULMONARY DISEASE, UNSPECIFIED Comment: Does not appear to be in exacerbation On chronic O2, 2Lnc Continue Combivent, montelukast, prn nebulizers (13) HTN (hypertension) Code(s): I10 - ESSENTIAL (PRIMARY) HYPERTENSION Comment: Normotensive Home atenolol, lisinopril, furosemide on hold (14) History of poliomyelitis Code(s): Z86.12 - PERSONAL HISTORY OF POLIOMYELITIS Comment: With residual kyphoscoliosis and right arm nerve pain Likely contributes to poor respiratory effort (15) HLD (hyperlipidemia) Code(s): E78.5 - HYPERLIPIDEMIA, UNSPECIFIED Comment: Diet controlled Not on statin (16) DVT prophylaxis Comment: INR 1.9 today Restart warfarin Check INR tomorrow Status and Disposition: OBV to inpatient admit. Records requested from PCP office
[2017-02-10] MEDS: Amiodarone TAB* 200 MG PO SCH (08:34)
[2017-02-10] MEDS: Montelukast Sodium TAB* 10 MG PO SCH (08:34)
[2017-02-10] MEDS: Cholecalciferol TAB* 1000 UNITS PO SCH (08:34)
[2017-02-10] MEDS ORDERED: Dexamethasone IV* 4 MG/ML 1 ML (4 MG) IV SLOW PU ONE (09:00)
[2017-02-10] MEDS ORDERED: Acetaminophen TAB* 325 MG PO PRN (11:43)
[2017-02-10] MEDS ORDERED: Warfarin TAB(*) 2 MG PO ONE (17:00)
[2017-02-10] MEDS: Gabapentin CAP(*) 400 MG PO SCH (20:45)
[2017-02-10] MEDS: rOPINIRole TAB* 1 MG PO SCH (20:45)
[2017-02-11] MEDS: ceFAZolin VIAL(*) 1 GM in NS 0.9% 50 ML* 50 ML IVPB SCH ×2 (04:08→16:11)
[2017-02-11] MEDS: Levalbuterol 0.63MG/3ML NEB INH PRN ×2 (04:22→08:08)
[2017-02-11] MEDS: Levothyroxine TAB* 100 MCG TAB PO SCH (05:40)
[2017-02-11] MEDS: Montelukast Sodium TAB* 10 MG PO SCH (08:00)
[2017-02-11] MEDS: Amiodarone TAB* 200 MG PO SCH (08:00)
[2017-02-11] MEDS ORDERED: Cosyntropin* 0.25 MG VIAL IV ONE (08:00)
[2017-02-11] MEDS: Cholecalciferol TAB* 1000 UNITS PO SCH (08:00)
[2017-02-11] MEDS: Budesonide NEB* 0.5 MG/2 ML NEB.SOLN INH SCH ×4 (08:00→19:15)
[2017-02-11] MEDS ORDERED: Furosemide IV* 10 MG/ML 2 ML VIAL (20 MG) ONE (09:01)
[2017-02-11] MEDS ORDERED: Furosemide IV* 10 MG/ML 2 ML VIAL (20 MG) IV ONE (09:02)
[2017-02-11 09:10] LABS: Hematocrit 30 % (35-47); Hemoglobin 9.8 g/dl (12.0-16.0); Mean Corpuscular HGB Conc 33 g/dl (31-36); Mean Corpuscular Hemoglobin 31 pg (27-31); Mean Corpuscular Volume 95 fL (80-97); Mean Platelet Volume 10 um3 (7.4-10.4); Red Blood Count 3.14 10^6/ul (4.0-5.4); Red Cell Distribution Width 16 % (10.5-15); White Blood Count 7.9 10^3/ul (3.5-10.8)
[2017-02-11 09:28] LABS: BUN/Creatinine Ratio 16.7 (8-20); Calcium 9.2 mg/dL (8.6-10.3); EGFR African American 54.9 (>60); EGFR Non-African American 42.7 (>60); Potassium 4.3 mmol/L (3.5-5.0)
--- NOTE | 2017-02-11 09:54 | RAD ---
HISTORY: Shortness of breath COMPARISONS: January 31, 2017 VIEWS:1: Single frontal portable view of the chest at 9:30 AM FINDINGS: LINES AND TUBES: None. CARDIOMEDIASTINAL SILHOUETTE: The cardiac silhouette is enlarged. The cardiomediastinal silhouette is otherwise normal for portable technique. PLEURA: The costophrenic angles are sharp. No pleural abnormalities are noted. LUNG PARENCHYMA: There is hyperinflation. There is prominence of the central pulmonary vasculature ABDOMEN: The upper abdomen is clear. There is no subphrenic gas. BONES AND SOFT TISSUES: No bone or soft tissue abnormalities are noted. IMPRESSION: 1. CARDIOMEGALY. 2. HYPERINFLATION CONSISTENT WITH COPD. 3. PULMONARY VASCULAR CONGESTION
--- NOTE | 2017-02-11 12:42 | PN ---
Subjective Date of Service: 02/11/17 Interval History: Pt c/o SOB and worsening of chronic tremor after neb tx this AM Family History: Unchanged from Admission Social History: Unchanged from Admission Past Medical History: Unchanged from Admission Objective Active Medications: Acetaminophen (Tylenol Tab*) 650 mg PO Q4H PRN PRN Reason: FEVER/PAIN Last Admin: 02/10/17 11:52 Dose: 650 mg Amiodarone HCl (Cordarone Tab*) 100 mg PO DAILY [facility] Last Admin: 02/11/17 08:00 Dose: 100 mg Budesonide (Pulmicort Neb*) 0.5 mg INH RT.QID [facility] Last Admin: 02/11/17 12:27 Dose: 0.5 mg Cholecalciferol (Vitamin D Tab*) 1,000 units PO DAILY [facility] Last Admin: 02/11/17 08:00 Dose: 1,000 units Gabapentin (Neurontin Cap(*)) 400 mg PO BEDTIME [facility] Last Admin: 02/10/17 20:45 Dose: 400 mg Cefazolin Sodium 1 gm/ Sodium (Chloride) 50 mls @ 200 mls/hr IVPB Q12H [facility] Last Admin: 02/11/17 04:08 Dose: 200 mls/hr Levalbuterol HCl (Xopenex 0.63mg/3ml Neb*) 0.63 mg INH Q4H PRN PRN Reason: SOB/WHEEZING Last Admin: 02/11/17 08:08 Dose: 0.63 mg Levothyroxine Sodium (Synthroid Tab*) 100 mcg PO 0600 [facility] Last Admin: 02/11/17 05:40 Dose: 100 mcg Montelukast Sodium (Singulair Tab*) 10 mg PO DAILY [facility] Last Admin: 02/11/17 08:00 Dose: 10 mg Non-Formulary Medication (Combivent Respimat (Nf)) 20 mcg INH Q4H PRN PRN Reason: SOB/WHEEZING Nystatin (Nystatin Top Powder*) 1 applic TOPICAL BID PRN PRN Reason: RASH Pharmacy Profile Note (Coumadin Per Pharmacy*) 1 note FOLLOW UP .PER PHARMACY PROTOC [facility] PRN Reason: Protocol Ropinirole HCl (Requip Tab*) 2 mg PO BEDTIME [facility] Last Admin: 02/10/17 20:45 Dose: 2 mg Warfarin Sodium (Coumadin Tab(*)) 2.5 mg PO 1700 [facility] Stop: 02/11/17 17:01 Vital Signs 02/10/17 02/10/17 02/10/17 14:54 15:08 16:09 Temperature 97.3 F Pulse Rate 59 59 Respiratory 18 20 Rate Blood Pressure 140/67 (mmHg) O2 Sat by Pulse 99 100 99 Oximetry 02/10/17 02/10/17 02/10/17 19:41 20:00 20:45 Temperature 97.3 F Pulse Rate 61 Respiratory 24 18 19 Rate Blood Pressure 133/53 (mmHg) O2 Sat by Pulse 100 Oximetry 02/10/17 02/10/17 02/10/17 20:48 22:45 23:23 Temperature 97.6 F Pulse Rate 84 59 Respiratory 18 18 16 Rate Blood Pressure 133/59 (mmHg) O2 Sat by Pulse 98 100 Oximetry 02/11/17 02/11/17 02/11/17 03:22 04:23 07:15 Temperature 97.5 F 97.5 F Pulse Rate 68 65 64 Respiratory 16 22 20 Rate Blood Pressure 160/82 139/48 (mmHg) O2 Sat by Pulse 99 97 100 Oximetry 02/11/17 02/11/17 02/11/17 08:00 08:08 11:23 Temperature 97.4 F Pulse Rate 69 69 Respiratory 22 16 20 Rate Blood Pressure 121/54 (mmHg) O2 Sat by Pulse 99 100 Oximetry 02/11/17 12:31 Temperature Pulse Rate 65 Respiratory 18 Rate Blood Pressure (mmHg) O2 Sat by Pulse 100 Oximetry Oxygen Devices in Use Now: Nasal Cannula - at 2 l , 02 sat 100% Appearance: 86 yo F in NAD, AAOx3, notable b/l UE tremors Eyes: No Scleral Icterus, PERRLA Ears/Nose/Mouth/Throat: NL Teeth, Lips, Gums, Mucous Membranes Moist Neck: NL Appearance and Movements; NL JVP, Trachea Midline Respiratory: Symmetrical Chest Expansion and Respiratory Effort, - - distant breath sounds b/l, faint bibasiliar crackles Cardiovascular: NL Sounds; No Murmurs; No JVD, RRR Abdominal: NL Sounds; No Tenderness; No Distention Lymphatic: No Cervical Adenopathy Extremities: No Clubbing, Cyanosis, - - +2 pitting pedal edema b/l Skin: No Nodules or Sclerosis, - - left leg hematoma noted, no cellulitis evident Neurological: Alert and Oriented x 3, NL Muscle Strength and Tone Result Diagrams: 02/11/17 08:59 02/11/17 08:56 Additional Lab and Data: Lab Results 02/08/17 Range/Units 21:45 WBC 5.2 (3.5-10.8) 10^3/ul RBC 3.09 L (4.0-5.4) 10^6/ul Hgb 9.7 L (12.0-16.0) g/dl Hct 29 L (35-47) % MCV 93 (80-97) fL MCH 32 H (27-31) pg MCHC 34 (31-36) g/dl RDW 16 H (10.5-15) % Plt Count 148 L (150-450) 10^3/ul MPV 10 (7.4-10.4) um3 Neut % (Auto) 61.8 (38-83) % Lymph % (Auto) 23.6 L (25-47) % [place] % (Auto) 12.0 H (1-9) % Eos % (Auto) 1.8 (0-6) % Baso % (Auto) 0.8 (0-2) % Absolute Neuts (auto) 3.2 (1.5-7.7) 10^3/ul Absolute Lymphs (auto) 1.2 (1.0-4.8) 10^3/ul Absolute Monos (auto) 0.6 (0-0.8) 10^3/ul Absolute Eos (auto) 0.1 (0-0.6) 10^3/ul Absolute Basos (auto) 0 (0-0.2) 10^3/ul Absolute Nucleated RBC 0 10^3/ul Nucleated RBC % 0.1 Microbiology and Other Data: Microbiology 02/09/17 17:10 Urine Culture - Final Urine No Growth (<1,000 CFU/mL) 02/10/17 16:17 Stool Occult Blood (JUAN DAVID) - Final Stool Assess/Plan/Problems-Billing Assessment: Ms. Degroot is an 86 yo female with a PMH of HTN, afib, oxygen dependent COPD, GERD, polio, HLD, and lower extremity edema who presented to the ED on 02/08 with bradycardia, hypothermia, and hypotension as well as an elevated INR. - Patient Problems (1) Cellulitis Comment: Questionable cellulitis to LLE - patient dropped a candy jar on her leg and was admitted with an INR of 7 Small collection of blood seen on US, leg improved in appearance Continue cefazolin (2) Acute kidney injury Comment: Suspect acute on chronic injury, perhaps secondary to diuretic use Improved (3) Coagulopathy Comment: Resolved May have been falsely elevated secondary to cold body temperature (4) Adrenal insufficiency Comment: AM cortisol 2.87 plan to f/u Dr. Grant, as an outpatient. cosyntropin stym test positive for adrenal insufficency. Plan to cont prednisone 30 mg daily at home. Pt has h/o being on prednisone x 6 weeks and disontinuation approx 2-3 weeks priror to current admission. That may be the cause of pt's adrenal insufficiency (5) Anemia Comment: HH stable May be secondary to LLE hematoma from recent leg injury Continue to trend stool occult neg (6) Atrial fibrillation Comment: Currently in sinus rhythm Continue amiodarone, atenolol held for bradycardia (7) Hypothermia Comment: Now resolved Suspect secondary to adrenal insuffiency (8) Hypotension Comment: Resolved (9) COPD (chronic obstructive pulmonary disease) Comment: Does not appear to be in exacerbation On chronic O2, 2Lnc Continue Combivent, montelukast, prn nebulizers (10) Hypothyroidism Comment: Continue levothyroxine TSH 1.04 (11) History of poliomyelitis Comment: With residual kyphoscoliosis and right arm nerve pain Likely contributes to poor respiratory effort (12) DVT prophylaxis Comment: INR 1.2 today cont warfarin Check INR tomorrow Status and Disposition: Inpatient
[2017-02-11] MEDS: predniSONE TAB* 10 MG PO SCH (13:54)
[2017-02-11] MEDS ORDERED: Warfarin TAB(*) 2.5 MG PO ONE (17:00)
[2017-02-11] MEDS: Gabapentin CAP(*) 400 MG PO SCH (20:51)
[2017-02-11] MEDS: rOPINIRole TAB* 1 MG PO SCH (20:52)
[2017-02-12] MEDS: ceFAZolin VIAL(*) 1 GM in NS 0.9% 50 ML* 50 ML IVPB SCH ×2 (03:27→16:24)
[2017-02-12] MEDS: Levothyroxine TAB* 100 MCG TAB PO SCH (05:01)
[2017-02-12 06:01] LABS: BUN/Creatinine Ratio 20.7 (8-20); Calcium 9.5 mg/dL (8.6-10.3); EGFR African American 57.1 (>60); EGFR Non-African American 44.4 (>60); Potassium 4.8 mmol/L (3.5-5.0)
[2017-02-12] MEDS: Levalbuterol 0.63MG/3ML NEB INH PRN ×2 (06:06→12:08)
--- NOTE | 2017-02-12 06:42 | RAD ---
INDICATION: Short of breath COMPARISON: February 11, 2017 TECHNIQUE: An AP portable view obtained at 2215 hours is submitted. FINDINGS: Bones/Soft Tissues: There are no acute bony findings. Cardiomediastinal: The cardiomediastinal silhouette is normal. There is mild central venous congestion. Lungs: There are no infiltrates. The surgically vessels are mildly prominent. Pleura: There are no pleural effusions. Other: None IMPRESSION: MILD PULMONARY VENOUS CONGESTIVE FINDINGS WITH IMPROVEMENT
[2017-02-12] MEDS ORDERED: Furosemide IV* 10 MG/ML 2 ML VIAL (20 MG) IV ONE (07:43)
[2017-02-12 08:05] LABS: Troponin I 0.25 ng/mL (<0.04)
[2017-02-12] MEDS: Montelukast Sodium TAB* 10 MG PO SCH (08:08)
[2017-02-12] MEDS: predniSONE TAB* 10 MG PO SCH (08:09)
[2017-02-12] MEDS: Amiodarone TAB* 200 MG PO SCH (08:09)
[2017-02-12] MEDS: Budesonide NEB* 0.5 MG/2 ML NEB.SOLN INH SCH ×4 (08:24→19:33)
[2017-02-12] MEDS: Furosemide TAB* 40 MG PO SCH ×2 (08:41→21:28)
[2017-02-12] MEDS: Cholecalciferol TAB* 1000 UNITS PO SCH (08:41)
[2017-02-12] MEDS ORDERED: Aspirin TAB* 325 MG ONE (09:24)
[2017-02-12] MEDS ORDERED: Enoxaparin(*) 80 MG/0.8 ML SYR SUBCUT SCH ×2 (10:00→11:00)
--- NOTE | 2017-02-12 10:03 | PN ---
Subjective Date of Service: 02/12/17 Interval History: Pt c/o CP when walking to bathroom last night. Initial EKG and troponin unremarkable, but today trop at 0.25. she has not had CP since. H/o OBV for CP in 12/28 after which she was supposed to f/u with Dr. Phillips for a stress test but never did. Family History: Unchanged from Admission Social History: Unchanged from Admission Past Medical History: Unchanged from Admission Objective Active Medications: Acetaminophen (Tylenol Tab*) 650 mg PO Q4H PRN PRN Reason: FEVER/PAIN Last Admin: 02/10/17 11:52 Dose: 650 mg Amiodarone HCl (Cordarone Tab*) 100 mg PO DAILY [facility] Last Admin: 02/12/17 08:09 Dose: 100 mg Aspirin (Aspirin Tab*) 325 mg PO DAILY [facility] Budesonide (Pulmicort Neb*) 0.5 mg INH RT.QID [facility] Last Admin: 02/12/17 08:24 Dose: 0.5 mg Cholecalciferol (Vitamin D Tab*) 1,000 units PO DAILY [facility] Last Admin: 02/12/17 08:41 Dose: 1,000 units Enoxaparin Sodium (Lovenox(*)) 80 mg SUBCUT Q12H [facility] Furosemide (Lasix Tab*) 40 mg PO BID [facility] Last Admin: 02/12/17 08:41 Dose: 40 mg Gabapentin (Neurontin Cap(*)) 400 mg PO BEDTIME [facility] Last Admin: 02/11/17 20:51 Dose: 400 mg Cefazolin Sodium 1 gm/ Sodium (Chloride) 50 mls @ 200 mls/hr IVPB Q12H [facility] Last Admin: 02/12/17 03:27 Dose: 200 mls/hr Levalbuterol HCl (Xopenex 0.63mg/3ml Neb*) 0.63 mg INH Q4H PRN PRN Reason: SOB/WHEEZING Last Admin: 02/12/17 06:06 Dose: 0.63 mg Levothyroxine Sodium (Synthroid Tab*) 100 mcg PO 0600 [facility] Last Admin: 02/12/17 05:01 Dose: 100 mcg Montelukast Sodium (Singulair Tab*) 10 mg PO DAILY [facility] Last Admin: 02/12/17 08:08 Dose: 10 mg Non-Formulary Medication (Combivent Respimat (Nf)) 20 mcg INH Q4H PRN PRN Reason: SOB/WHEEZING Nystatin (Nystatin Top Powder*) 1 applic TOPICAL BID PRN PRN Reason: RASH Prednisone (Deltasone Tab*) 30 mg PO DAILY [facility] Last Admin: 02/12/17 08:09 Dose: 30 mg Ropinirole HCl (Requip Tab*) 2 mg PO BEDTIME [facility] Last Admin: 02/11/17 20:52 Dose: 2 mg Warfarin Sodium (Coumadin Tab(*)) 4 mg PO DAILY@1700 [facility] PRN Reason: Protocol Vital Signs 02/11/17 02/11/17 02/11/17 11:23 12:31 14:59 Temperature 97.4 F Pulse Rate 69 65 60 Respiratory 20 18 16 Rate Blood Pressure 121/54 (mmHg) O2 Sat by Pulse 100 100 98 Oximetry 02/11/17 02/11/17 02/11/17 15:09 19:18 20:00 Temperature 97.5 F Pulse Rate 60 64 Respiratory 16 22 22 Rate Blood Pressure 128/58 (mmHg) O2 Sat by Pulse 97 98 Oximetry 02/11/17 02/11/17 02/11/17 20:15 20:51 21:38 Temperature 97.4 F Pulse Rate 68 87 Respiratory 18 19 30 Rate Blood Pressure 163/75 154/106 (mmHg) O2 Sat by Pulse 100 92 Oximetry 02/11/17 02/11/17 02/12/17 22:51 23:23 03:55 Temperature 97.8 F Pulse Rate 68 78 Respiratory 24 20 20 Rate Blood Pressure 161/99 150/83 (mmHg) O2 Sat by Pulse 100 98 Oximetry 02/12/17 02/12/17 02/12/17 06:09 07:23 08:00 Temperature 97.8 F Pulse Rate 78 69 Respiratory 25 20 22 Rate Blood Pressure 119/56 (mmHg) O2 Sat by Pulse 99 98 Oximetry 02/12/17 08:25 Temperature Pulse Rate 68 Respiratory 16 Rate Blood Pressure (mmHg) O2 Sat by Pulse 98 Oximetry Oxygen Devices in Use Now: Nasal Cannula - at 2 l Appearance: 86 yo F in nAD, aAOx3 Eyes: No Scleral Icterus, PERRLA Ears/Nose/Mouth/Throat: NL Teeth, Lips, Gums, Mucous Membranes Moist Neck: NL Appearance and Movements; NL JVP, Trachea Midline Respiratory: Symmetrical Chest Expansion and Respiratory Effort, - - distant breath sounds b/l Cardiovascular: NL Sounds; No Murmurs; No JVD, RRR Abdominal: NL Sounds; No Tenderness; No Distention Lymphatic: No Cervical Adenopathy Extremities: No Clubbing, Cyanosis, - - +2 pitting edema b/l Skin: No Nodules or Sclerosis, - - left leg hematoma unchnaged, no cellulitis Neurological: Alert and Oriented x 3, NL Muscle Strength and Tone Result Diagrams: 02/11/17 08:59 02/12/17 04:54 Additional Lab and Data: Lab Results 02/08/17 Range/Units 21:45 WBC 5.2 (3.5-10.8) 10^3/ul RBC 3.09 L (4.0-5.4) 10^6/ul Hgb 9.7 L (12.0-16.0) g/dl Hct 29 L (35-47) % MCV 93 (80-97) fL MCH 32 H (27-31) pg MCHC 34 (31-36) g/dl RDW 16 H (10.5-15) % Plt Count 148 L (150-450) 10^3/ul MPV 10 (7.4-10.4) um3 Neut % (Auto) 61.8 (38-83) % Lymph % (Auto) 23.6 L (25-47) % [place] % (Auto) 12.0 H (1-9) % Eos % (Auto) 1.8 (0-6) % Baso % (Auto) 0.8 (0-2) % Absolute Neuts (auto) 3.2 (1.5-7.7) 10^3/ul Absolute Lymphs (auto) 1.2 (1.0-4.8) 10^3/ul Absolute Monos (auto) 0.6 (0-0.8) 10^3/ul Absolute Eos (auto) 0.1 (0-0.6) 10^3/ul Absolute Basos (auto) 0 (0-0.2) 10^3/ul Absolute Nucleated RBC 0 10^3/ul Nucleated RBC % 0.1 Microbiology and Other Data: Microbiology 02/09/17 17:10 Urine Culture - Final Urine No Growth (<1,000 CFU/mL) 02/10/17 16:17 Stool Occult Blood (JUAN DAVID) - Final Stool Assess/Plan/Problems-Billing Assessment: Ms. Degroot is an 86 yo female with a PMH of HTN, afib, oxygen dependent COPD, GERD, polio, HLD, and lower extremity edema who presented to the ED on 02/08 with bradycardia, hypothermia, and hypotension as well as an elevated INR. - Patient Problems (1) Chest pain Comment: suspect angina. Trop up to 0.2. Cont telem and trending trop. Start ASA and bridge with Lovenox. No BB due to COPD Cont Coumadin Dobutamine stress Echo ordered for aM (2) Cellulitis Comment: Questionable cellulitis to LLE - patient dropped a candy jar on her leg and was admitted with an INR of 7 Small collection of blood seen on US, leg improved in appearance Continue cefazolin (3) Acute kidney injury Comment: Suspect acute on chronic injury, perhaps secondary to diuretic use Improved (4) Coagulopathy Comment: Resolved May have been falsely elevated secondary to cold body temperature INR 1.3 today (5) Adrenal insufficiency Comment: AM cortisol 2.87 plan to f/u Dr. Grant, as an outpatient. cosyntropin stym test positive for adrenal insufficency. Plan to cont prednisone 30 mg daily at home. Pt has h/o being on prednisone x 6 weeks and disontinuation approx 2-3 weeks priror to current admission. That may be the cause of pt's adrenal insufficiency (6) Anemia Comment: HH stable May be secondary to LLE hematoma from recent leg injury Continue to trend stool occult neg (7) Atrial fibrillation Comment: Currently in sinus rhythm Continue amiodarone, atenolol held for bradycardia (8) Hypothermia Comment: Now resolved Suspect secondary to adrenal insuffiency (9) Hypotension Comment: Resolved (10) COPD (chronic obstructive pulmonary disease) Comment: Does not appear to be in exacerbation On chronic O2, 2Lnc Continue Combivent, montelukast, prn nebulizers (11) Hypothyroidism Comment: Continue levothyroxine TSH 1.04 (12) History of poliomyelitis Comment: With residual kyphoscoliosis and right arm nerve pain Likely contributes to poor respiratory effort (13) Lower extremity edema Comment: Chronic lower extremity edema Takes large doses of furosemide at home . Will restart Lasix at 40 mg BID. Will aslo tx with a dose of IV Lasix-suspect volume overload as per CXR. Daily weights (14) DVT prophylaxis Comment: INR 1.3 today cont warfarin Status and Disposition: Inpatient
[2017-02-12] MEDS: Aspirin TAB* 325 MG PO SCH (10:18)
[2017-02-12 14:47] LABS: Urine Bilirubin Negative (Negative); Urine Glucose 1+(50 mg/dL) (Negative); Urine Nitrite Negative (Negative)
[2017-02-12] MEDS: Warfarin TAB(*) 4 MG PO SCH (16:24)
[2017-02-12] MEDS: Gabapentin CAP(*) 400 MG PO SCH (21:28)
[2017-02-12] MEDS: rOPINIRole TAB* 1 MG PO SCH (21:29)
[2017-02-13] MEDS: ceFAZolin VIAL(*) 1 GM in NS 0.9% 50 ML* 50 ML IVPB SCH ×2 (04:28→15:54)
[2017-02-13] MEDS: Levalbuterol 0.63MG/3ML NEB INH PRN (04:45)
[2017-02-13] MEDS: Levothyroxine TAB* 100 MCG TAB PO SCH (05:21)
[2017-02-13] MEDS: Budesonide NEB* 0.5 MG/2 ML NEB.SOLN INH SCH ×4 (07:30→20:39)
[2017-02-13] MEDS ORDERED: Furosemide IV* 10 MG/ML VIAL (40 MG) IV ONE (08:41)
--- NOTE | 2017-02-13 08:48 | PN ---
Subjective Date of Service: 02/13/17 Interval History: Pt denies CP. Feels "well". Breathing: " laboured as always". Family History: Unchanged from Admission Social History: Unchanged from Admission Past Medical History: Unchanged from Admission Objective Active Medications: Acetaminophen (Tylenol Tab*) 650 mg PO Q4H PRN PRN Reason: FEVER/PAIN Last Admin: 02/10/17 11:52 Dose: 650 mg Amiodarone HCl (Cordarone Tab*) 100 mg PO DAILY [facility] Last Admin: 02/12/17 08:09 Dose: 100 mg Aspirin (Aspirin Tab*) 325 mg PO DAILY [facility] Last Admin: 02/12/17 10:18 Dose: 325 mg Atenolol (Tenormin Tab*) 25 mg PO DAILY [facility] Budesonide (Pulmicort Neb*) 0.5 mg INH RT.QID [facility] Last Admin: 02/12/17 19:33 Dose: 0.5 mg Cholecalciferol (Vitamin D Tab*) 1,000 units PO DAILY [facility] Last Admin: 02/12/17 08:41 Dose: 1,000 units Furosemide (Lasix Tab*) 40 mg PO BID [facility] Last Admin: 02/12/17 21:28 Dose: 40 mg Gabapentin (Neurontin Cap(*)) 400 mg PO BEDTIME [facility] Last Admin: 02/12/17 21:28 Dose: 400 mg Cefazolin Sodium 1 gm/ Sodium (Chloride) 50 mls @ 200 mls/hr IVPB Q12H [facility] Last Admin: 02/13/17 04:28 Dose: 200 mls/hr Levalbuterol HCl (Xopenex 0.63mg/3ml Neb*) 0.63 mg INH Q4H PRN PRN Reason: SOB/WHEEZING Last Admin: 02/13/17 04:45 Dose: 0.63 mg Levothyroxine Sodium (Synthroid Tab*) 100 mcg PO 0600 [facility] Last Admin: 02/13/17 05:21 Dose: 100 mcg Montelukast Sodium (Singulair Tab*) 10 mg PO DAILY [facility] Last Admin: 02/12/17 08:08 Dose: 10 mg Non-Formulary Medication (Combivent Respimat (Nf)) 20 mcg INH Q4H PRN PRN Reason: SOB/WHEEZING Nystatin (Nystatin Top Powder*) 1 applic TOPICAL BID PRN PRN Reason: RASH Last Admin: 02/13/17 05:56 Dose: 1 applic Pharmacy Profile Note (Coumadin Daily Reminder*) 1 note FOLLOW UP 1700 [facility] Last Admin: 02/12/17 16:24 Dose: 1 note Prednisone (Deltasone Tab*) 30 mg PO DAILY [facility] Last Admin: 02/12/17 08:09 Dose: 30 mg Ropinirole HCl (Requip Tab*) 2 mg PO BEDTIME [facility] Last Admin: 02/12/17 21:29 Dose: 2 mg Warfarin Sodium (Coumadin Tab(*)) 4 mg PO DAILY@1700 [facility] PRN Reason: Protocol Last Admin: 02/12/17 16:24 Dose: 4 mg Vital Signs 02/12/17 02/12/17 02/12/17 11:47 12:10 15:09 Temperature 97.4 F Pulse Rate 65 64 66 Respiratory 20 16 14 Rate Blood Pressure 154/74 (mmHg) O2 Sat by Pulse 100 99 96 Oximetry 02/12/17 02/12/17 02/12/17 16:19 19:34 19:35 Temperature Pulse Rate 69 Respiratory 14 Rate Blood Pressure (mmHg) O2 Sat by Pulse 98 98 97 Oximetry 02/12/17 02/12/17 02/12/17 20:00 20:32 21:28 Temperature 97.6 F Pulse Rate 70 Respiratory 16 20 18 Rate Blood Pressure 164/80 (mmHg) O2 Sat by Pulse 100 Oximetry 02/12/17 02/12/17 02/13/17 23:28 23:44 03:07 Temperature 97.4 F 97.0 F Pulse Rate 78 77 Respiratory 16 20 20 Rate Blood Pressure 156/84 165/91 (mmHg) O2 Sat by Pulse 95 91 Oximetry 02/13/17 04:46 Temperature Pulse Rate 80 Respiratory 24 Rate Blood Pressure (mmHg) O2 Sat by Pulse 94 Oximetry Oxygen Devices in Use Now: Nasal Cannula - at 2 l Appearance: 86 yo F in NAD, aAOx3 Eyes: No Scleral Icterus, PERRLA Ears/Nose/Mouth/Throat: NL Teeth, Lips, Gums, Mucous Membranes Moist Neck: NL Appearance and Movements; NL JVP, Trachea Midline Respiratory: Symmetrical Chest Expansion and Respiratory Effort, - - distant breath sounds b/l, fine bibasiliar crackles Cardiovascular: NL Sounds; No Murmurs; No JVD, RRR Abdominal: NL Sounds; No Tenderness; No Distention Lymphatic: No Cervical Adenopathy Extremities: No Clubbing, Cyanosis, - - +2 pitting pedal edema b/l Skin: - - left leg hematoma-unchanged Neurological: Alert and Oriented x 3, NL Muscle Strength and Tone Result Diagrams: 02/11/17 08:59 02/12/17 04:54 Additional Lab and Data: Lab Results 02/08/17 Range/Units 21:45 WBC 5.2 (3.5-10.8) 10^3/ul RBC 3.09 L (4.0-5.4) 10^6/ul Hgb 9.7 L (12.0-16.0) g/dl Hct 29 L (35-47) % MCV 93 (80-97) fL MCH 32 H (27-31) pg MCHC 34 (31-36) g/dl RDW 16 H (10.5-15) % Plt Count 148 L (150-450) 10^3/ul MPV 10 (7.4-10.4) um3 Neut % (Auto) 61.8 (38-83) % Lymph % (Auto) 23.6 L (25-47) % [place] % (Auto) 12.0 H (1-9) % Eos % (Auto) 1.8 (0-6) % Baso % (Auto) 0.8 (0-2) % Absolute Neuts (auto) 3.2 (1.5-7.7) 10^3/ul Absolute Lymphs (auto) 1.2 (1.0-4.8) 10^3/ul Absolute Monos (auto) 0.6 (0-0.8) 10^3/ul Absolute Eos (auto) 0.1 (0-0.6) 10^3/ul Absolute Basos (auto) 0 (0-0.2) 10^3/ul Absolute Nucleated RBC 0 10^3/ul Nucleated RBC % 0.1 Microbiology and Other Data: Microbiology 02/09/17 17:10 Urine Culture - Final Urine No Growth (<1,000 CFU/mL) 02/10/17 16:17 Stool Occult Blood (JUAN DAVID) - Final Stool Assess/Plan/Problems-Billing Assessment: Ms. Degroot is an 86 yo female with a PMH of HTN, afib, oxygen dependent COPD, GERD, polio, HLD, and lower extremity edema who presented to the ED on 02/08 with bradycardia, hypothermia, and hypotension as well as an elevated INR. - Patient Problems (1) Chest pain Comment: suspect angina. Trop up to 1. Pt's atenolol was held due to bradycardia and COPD(but from review of PFT's pt has no marked response to bronchodilators and the lung disease is mixed restrictive and obstructive). Will restart Atenolol since HR now in 70's. Cont telem and trending trop. Echo from 04/29 shows EF 55%, mild MS, mod pulm HTN. Stress test in 05/2016-low risk. I am not sure if another stress test would bladder changer. will ask Dr. Desai to consult. Start ASA /Atenolol Cont Coumadin (2) Cellulitis Comment: Questionable cellulitis to LLE - patient dropped a candy jar on her leg and was admitted with an INR of 7 Small collection of blood seen on US, leg improved in appearance Continue cefazolin (3) Acute kidney injury Comment: Suspect acute on chronic injury, perhaps secondary to diuretic use Improved (4) Coagulopathy Comment: Resolved May have been falsely elevated secondary to cold body temperature INR 1.8 today, will stop Lovenox (5) Adrenal insufficiency Comment: AM cortisol 2.87 plan to f/u Dr. Grant, as an outpatient. cosyntropin stym test positive for adrenal insufficency. Plan to cont prednisone 30 mg daily at home. Pt has h/o being on prednisone x 6 weeks and disontinuation approx 2-3 weeks priror to current admission. That may be the cause of pt's adrenal insufficiency (6) Anemia Comment: HH stable May be secondary to LLE hematoma from recent leg injury Continue to trend stool occult neg (7) Atrial fibrillation Comment: Currently in sinus rhythm Continue amiodarone, atenolol (8) Hypothermia Comment: Now resolved Suspect secondary to adrenal insuffiency (9) Hypotension Comment: Resolved (10) COPD (chronic obstructive pulmonary disease) Comment: Does not appear to be in exacerbation At baseline severe obstructive and restrictive lung disease (PFT's 01/31/17: FEV1 37% predicted, TLC 66%) due to COPD and scoliosis. On chronic O2, 2Lnc Continue Combivent, montelukast, prn nebulizers (11) Hypothyroidism Comment: Continue levothyroxine TSH 1.04 (12) History of poliomyelitis Comment: With residual kyphoscoliosis and right arm nerve pain Likely contributes to poor respiratory effort (13) Lower extremity edema Comment: Chronic lower extremity edema Takes large doses of furosemide at home . cont home Lasix at 40 mg BID. Will also tx with an additional dose of Lasix IV today. Daily weights (14) DVT prophylaxis Comment: 8 INR 1.3 today cont warfarin Status and Disposition: Inpatient, possible d/c home tomorrow
[2017-02-13] MEDS: Amiodarone TAB* 200 MG PO SCH (09:00)
[2017-02-13] MEDS: predniSONE TAB* 10 MG PO SCH (09:00)
[2017-02-13] MEDS: Montelukast Sodium TAB* 10 MG PO SCH (09:00)
[2017-02-13] MEDS: Aspirin TAB* 325 MG PO SCH (09:00)
[2017-02-13] MEDS: Atenolol TAB* 25 MG PO SCH (09:00)
[2017-02-13] MEDS: Furosemide TAB* 40 MG PO SCH ×2 (09:00→20:49)
[2017-02-13] MEDS: Cholecalciferol TAB* 1000 UNITS PO SCH (09:00)
--- NOTE | 2017-02-13 13:19 | CONS ---
CC: Dr. Margarito Phillips; Dr. Daniel Regan * CARDIOLOGY CONSULTATION REPORT: DATE OF CONSULT: 02/13/17 INDICATION FOR CONSULT: Shortness of breath, abnormal troponin. HISTORY OF PRESENT ILLNESS: The patient is an 86-year-old female with a past medical history of severe COPD, oxygen dependent; history of paroxysmal atrial fibrillation, who was admitted to the hospital because of low blood pressure and low heart rate. The patient has chronic shortness of breath; she is on chronic oxygen. She is very sedentary in her lifestyle. On arrival to the emergency room, the patient was slightly hypothermic and hypotensive. She was also noted to have an elevated INR level of 7.7. The patient was admitted to the hospital for observation. Her atenolol was held. She was given some fluids and most of her laboratory abnormalities started to correct. However, the patient was noted to have an elevated troponin level. Troponin level continued to rise for the last 24 hours. It is now up to 1.06. In speaking with the patient, she denied any chest pain. She has chronic shortness of breath because of her severe COPD. She denies any significant change in her degree of dyspnea. She denies any palpitations. She denies any episodes of lightheadedness, dizziness, or syncope. PAST MEDICAL HISTORY: Significant for severe COPD, oxygen dependent; hypothyroidism; paroxysmal atrial fibrillation; polio; gastroesophageal reflux disease; lower extremity edema. PAST SURGICAL HISTORY: Knee surgery, hand surgery, back surgery, hysterectomy. OUTPATIENT MEDICATIONS: 1. Combivent inhaler. 2. Levalbuterol 0.63 mg inhaler and nebulizer. 3. Vitamin D3. 4. Atenolol 25 mg a day, which is being held. 5. Amiodarone 100 mg a day. 6. Gabapentin 400 mg at night. 7. Lasix 60 mg twice a day. 8. Singulair 10 mg a day. 9. Lisinopril 10 mg a day. 10. Levothyroxine 100 mcg a day. 11. Coumadin as directed. 12. Ropinirole 2 mg a day. ALLERGIES: She is intolerant of clarithromycin. FAMILY HISTORY: Both her mother and father had history of coronary artery disease. SOCIAL HISTORY: She denies tobacco or alcohol use. Her daughter, Shandra, is her healthcare proxy. PHYSICAL EXAM: Height is 5 feet 2 inches. Weight is 188 pounds. Temperature 97, heart rate is 68, respiratory rate is 20, oxygen saturation 91% on 2 L, blood pressure 165/91. Sclerae anicteric. Oropharynx is pink without erythema. Carotids are 2+ without bruits. JVD is normal. Thyroid is normal. Cardiac Exam: S1, S2 without any murmurs, rubs, or gallops. Lungs have severely diminished breath sounds. There are no rhonchi or wheezes. Abdomen is soft, nontender, nondistended with normoactive bowel sounds. Extremities showed 2+ edema. She has 2+ pulses throughout. The patient is awake and alert. The patient was unable to ambulate. DIAGNOSTIC STUDIES/LAB DATA: Chemistries within normal limits. BUN 24, creatinine 1.16 which is down from her admission BUN and creatinine of 39 and 2.12. AST and ALT are within normal limits. Troponin level was initially 0 with peak of 1.06. BNP of 161. TSH 1.04. EKG demonstrates normal sinus rhythm, nonspecific T-wave abnormalities, unchanged from previous EKGs. The patient did have a full cardiac evaluation by Dr. Phillips as an outpatient in April and May of 2016. At that time, her echocardiogram showed normal LV size and systolic function, mild mitral stenosis, [id number] pulmonary hypertension. Her chemical nuclear stress test showed no evidence of ischemia. She had normal LV function. IMPRESSION: This is an 86-year-old female with severe chronic obstructive pulmonary disease, who was admitted to the hospital because of hypotension and bradycardia. Her atenolol has since been stopped. Since she has been in the hospital, all of her laboratory studies have normalized except for her troponin level. Her EKG shows no ischemic EKG changes. The patient has no anginal-type symptoms. RECOMMENDATIONS: For now, my recommendation is to continue on maximal medical therapy. I do not think any other cardiac evaluation is necessary at this time. It is not going to changer fixer, any findings we have on her, any stress test we would do, we would just continue to treat medically anyway. The patient will continue on amiodarone for suppression of her atrial fibrillation. She will continue on Coumadin. The patient will continue to follow up with Dr. Phillips as an outpatient. This case was discussed with Dr. Vanessa. [id number]/[facility] #: [id number] CARLY
[2017-02-13] MEDS: Warfarin TAB(*) 4 MG PO SCH (17:11)
[2017-02-13] MEDS: rOPINIRole TAB* 1 MG PO SCH (20:49)
[2017-02-13] MEDS: Gabapentin CAP(*) 400 MG PO SCH (20:50)
[2017-02-14] MEDS: ceFAZolin VIAL(*) 1 GM in NS 0.9% 50 ML* 50 ML IVPB SCH (03:45)
[2017-02-14] MEDS: Levothyroxine TAB* 100 MCG TAB PO SCH (05:42)
[2017-02-14 07:28] VITALS: BP 135/58
[2017-02-14] MEDS: Budesonide NEB* 0.5 MG/2 ML NEB.SOLN INH SCH (08:21)
[2017-02-14] MEDS: Levalbuterol 0.63MG/3ML NEB INH PRN (08:21)
[2017-02-14] MEDS: Atenolol TAB* 25 MG PO SCH (08:37)
[2017-02-14] MEDS: predniSONE TAB* 10 MG PO SCH (08:37)
[2017-02-14] MEDS: Cholecalciferol TAB* 1000 UNITS PO SCH (08:37)
[2017-02-14] MEDS: Aspirin TAB* 325 MG PO SCH (08:37)
[2017-02-14] MEDS: Montelukast Sodium TAB* 10 MG PO SCH (08:37)
[2017-02-14] MEDS: Furosemide TAB* 40 MG PO SCH (08:37)
[2017-02-14] MEDS: Amiodarone TAB* 200 MG PO SCH (08:37)
--- NOTE | 2017-02-14 16:28 | DS ---
CC: Dr. Regan; Dr. Desai; Dr. Phillips; Dr. Nunez * DISCHARGE SUMMARY: DATE OF ADMISSION: 02/09/17 DATE OF DISCHARGE: 02/14/17 PRIMARY CARE PHYSICIAN: Dr. Daniel Regan from [facility]. DISCHARGE DIAGNOSES: 1. Bradycardia, hypotension, and hypothermia due to adrenal insufficiency. 2. Left lower extremity hematoma and cellulitis. The hematoma was originally posttraumatic. 3. Acute kidney injury most likely due to combination of infection and hypoperfusion from initial bradycardia and hypotension, which resolved. 4. Fluid overload. When the patient was hypotensive, diuretics were held and she was treated with intravenous fluids. She required additional dose of diuretics prior to discharge and she is going to be discharge on higher dose of diuretics to go home with. 5. Troponin of 1 in the setting of the patient complaining of chest pain while walking and feeling very short of breath. Most likely due to demand ischemia. The patient was consulted by Dr. Desai. MEDICATIONS AT DISCHARGE: Include: 1. Clotrimazole with betamethasone cream applied over to the skin areas b.i.d. 2. Budesonide nebulizer one nebulizer up to four times a day p.r.n. 3. Combivent Respimat one inhalation every 4 hours p.r.n. 4. Levobunolol 0.63 mg inhalation as per instructions. 5. Nystatin cream applied to affected area b.i.d. 6. Vitamin D3 of 1000 units daily. 7. Amiodarone 100 mg daily. 8. Atenolol 25 mg daily. 9. Vitamin B12 injections monthly at 1000 mcg. 10. Furosemide 60 mg b.i.d., which is increased dose from 40 mg b.i.d. before. 11. Neurontin 100 mg at bedtime. 12. Levothyroxine 100 mcg daily. 13. Singulair 10 mg daily. 14. Coumadin 4 mg daily. 15. Prednisone 30 mg daily to be tapered down by the patient's primary care physician. 16. Requip 2 mg at bedtime. At discharge, the patient recommended to follow up with her primary care provider, Dr. Regan with the scheduled appointment on 02/17/17 at 3:20 p.m. The patient was also recommended to check her INR in approximately 2 to 3 days. She checks it at home with her own machine. The patient also recommended to follow up with Dr. Grant in approximately 1 to 2 weeks in regards to adrenal insufficiency. LABORATORY DATA AND STUDIES PERFORMED DURING THE HOSPITAL STAY: Include, INR on 02/13/17; was 1.83. On 02/12/17; sodium of 139, potassium 4.8, chloride 107 , carbon dioxide 27, BUN 24, creatinine 1.16. The patient's creatinine was at its peak during this hospital stay was at level 2.18 at admission. CBC on 02/11; white blood cell count 7.9, hemoglobin 9.9, hematocrit of 30, and platelets of 158. Stool Hemoccult was negative. Urine cultures were showing no growth. Portable chest x-ray most recently obtained on 02/11/17, impression: "Mild pulmonary venous congestive findings with improvement." Soft tissue ultrasound of the left lower extremity hematoma obtained on showed, impression: "Corresponding with the region of clinical question in addition to marked subcutaneous edema loculated 2.9 x 1.9 cm fluid collection, with the fluid level devoid of intrinsic vascularity consistent with blood product, hematoma given the clinical context." The patient's cortisol level was 2.87 on presentation. Cortisol stim test showed cortisol 2.46 at time 0, 6.67 at 30 minutes later and 9.91 at 60 minutes later after cosyntropin injection. CONSULTATIONS DURING THE HOSPITAL STAY: Included Dr. Desai from cardiology. 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 The patient was found to be hypotensive, bradycardic, and hypothermic. Her initial cortisol level was 2.8. The patient also had history of recent treatment with prednisone for a total of approximately six weeks and that discontinued approximately a couple of weeks prior to her presentation. The patient also noted to have left lower extremity edema with hematoma, which she sustained several days prior after trauma. She also was noted to have cellulitis area around it. The patient was treated with stress dose steroid and she was noted to have adrenal insufficiency with low cortisol level in the phase of bradycardia, hypotension, and hypothermia. The patient also was treated with IV cefazolin for cellulitis, surrounding the left lower extremity hematoma. The hematoma ultrasound did not show any additional fluid collection and hematoma area was of approximately 2 cm in diameter. After administering stress dose steroid, the patient's hypotension and bradycardia started resolving. Initially, the patient's atenolol was held due to bradycardia, but it was restarted later on during the hospital stay. The patient's IV hydrocortisone was weaned down to prednisone at 30 mg daily. I suspected that most likely the patient has adrenal insufficiency due to history of prolonged steroid use prior. She is going to be discharge on 30 mg of prednisone daily with plan to slowly wean her down by her primary care provider. The patient also was recommended to follow up with her pickling grader, Dr. Grant as outpatient. Please also note that cosyntropin stimulation test was consistent with adrenal insufficiency. The patient was noted to be coagulopathic on admission with an INR of 7. Most likely it was previously elevated due to hypothermia. Her Coumadin was held and later on restarted during her hospital stay. She will go home on her usual dose of Coumadin 4 mg daily. Her cellulitis was treated with cefazolin for a total of 7 days and that will not need to be continued at discharge. Due to the patient's hypotension, she received intravenous fluids and her diuretics were held. During the second part of her hospital stay, she was noted to be in fluid overload. She was noted to have marked lower extremity edema and chest x-ray showed pulmonary vascular congestion. The patient was treated with multiple additional doses of intravenous Lasix in addition to her regular Lasix dose at 40 mg twice a day. At discharge, the patient was recommended to continue with an increased dose of 60 mg of Lasix twice a day and follow up with Dr. Regan for the possibility of lowering down the dose in a few days. The patient's creatinine at admission was above 2, most likely due to acute kidney injury due to hypoperfusion in this patient with hypotension and bradycardia as well as cellulitis. That improved after initial intravenous fluid treatment and continued to improve despite diureses later on during the hospital stay. The patient did become more anemic during the hospital stay, but stool heme negative. The anemia was most likely related anemia of chronic kidney disease as well as hematoma. Please also note that approximately 3 days prior the patient's discharge, in the setting on dyspnea with exertion while going to the bathroom she developed chest pain. Her EKGs continued to be unremarkable, but her troponin was up to 1. The patient had history of recent evaluation in May [address] Phillips with negative cardiac stress test and transthoracic echocardiogram. At this point I asked Dr. Desai to see the patient in consultation who recommended no further investigations and medical management to be continued. At that point, the patient's atenolol was also discontinued, which was held initially due to bradycardia. Jose also note that from review of the patient's medical records from Dr. Nunez's office, the patient had no reversibility with bronchodilators. Her FEV1 was 37% predicted and total lung capacity was 66% predicted. The patient is aware of significant restrictive and obstructive respiratory disease. At discharge, the patient is down to her baseline 3 L oxygen nasal cannula. She feels comfortable. She still complains of her usual dyspnea on exertion, but no chest pain since 3 days ago. Her hematoma still present in the left lower extremity with the wound that is approximately 2 cm in diameter. Cellulitis is no longer present. She does have +2 pitting pedal edema that is her baseline. She is going to be discharged home with recommendations of followup as follows. PHYSICAL EXAMINATION: Vital Signs: At the time of discharge, blood pressure of 135/58, heart rate 59 and regular, respiratory rate 25, oxygen saturation 100 % on 3 L oxygen nasal cannula, temperature of 99.2. General: This is a very pleasant 86-year-old female who is in no acute distress. Alert, awake, and oriented x3. HEENT: Head is atraumatic, normocephalic. Eyes: Pupils equal and reactive to light and accommodation. Oropharynx clear. Mucosa moist. Neck : Supple. No JVD. No bruits bilaterally. Cardiovascular: Regular rate and rhythm. No murmurs. Respiratory: Distant breath sounds bilaterally. No wheezes. Abdomen: Soft, nontender. Bowel sounds present in all 4 quadrants. Extremities: There is +2 pitting pedal edema. Pulses poorly palpable due to edema, but there is no clubbing or cyanosis present. Evaluation of Skin: The patient has left anterior menendez hematoma approximately 2 cm in diameter. Some of the skin surrounding the hematoma has tinny tears present. There is no evidence of cellulitis. Neuro Evaluation: Speech clear. Cranial nerves II through XII grossly intact. Motor strength is 5/5 bilaterally. [id number]/[facility] #: [id number] [facility]
== END 2017-02-14 11:05 | disposition home or self-care (01) | DRG 644 ==
LOC: ED 20:12 → MEDTELE 02-09 02:40 → OBSVTOIN 02-09 10:51
PROVIDERS: ADMIT Internal Medicine; ATTEND Internal Medicine
DX: E27.40 Unspecified adrenocortical insufficiency (principal); N17.9 Acute kidney failure, unspecified; I95.9 Hypotension, unspecified; L03.116 Cellulitis of left lower limb; I27.2 Other secondary pulmonary hypertension; I24.8 Other forms of acute ischemic heart disease; I48.0 Paroxysmal atrial fibrillation; R00.1 Bradycardia, unspecified; E03.9 Hypothyroidism, unspecified; J44.9 Chronic obstructive pulmonary disease, unspecified; M19.90 Unspecified osteoarthritis, unspecified site; K21.9 Gastro-esophageal reflux disease without esophagitis; E78.5 Hyperlipidemia, unspecified; Z66 Do not resuscitate; R68.0 Hypothermia, not associated with low environmental temperature; R79.1 Abnormal coagulation profile; T45.515A Adverse effect of anticoagulants, initial encounter; S80.12XA Contusion of left lower leg, initial encounter; W20.8XXA Other cause of strike by thrown, projected or falling object, initial encounter; D63.1 Anemia in chronic kidney disease; N18.9 Chronic kidney disease, unspecified; I12.9 Hypertensive chronic kidney disease with stage 1 through stage 4 chronic kidney disease, or unspecified chronic kidney disease; G25.2 Other specified forms of tremor; I05.0 Rheumatic mitral stenosis; T44.7X5A Adverse effect of beta-adrenoreceptor antagonists, initial encounter; Z90.710 Acquired absence of both cervix and uterus; Z86.12 Personal history of poliomyelitis; Z99.81 Dependence on supplemental oxygen; Z88.1 Allergy status to other antibiotic agents; Z98.42 Cataract extraction status, left eye; Z98.41 Cataract extraction status, right eye; Z82.49 Family history of ischemic heart disease and other diseases of the circulatory system; Z79.01 Long term (current) use of anticoagulants; Z79.52 Long term (current) use of systemic steroids; Y92.9 Unspecified place or not applicable; E87.70 Fluid overload, unspecified
CPT/HCPCS: 36415; 71010; 71020; 80048; 80053; 81003; 81015; 82272; 82533; 83519; 83605; 83735; 83880; 84443; 84484; 85025; 85610; 86140; 87086; 93005; 94640; 94760; A9270-GY; G0378; J0690; J0696; J0834; J1100; J1644; J1650; J1720; J1940; J7512

== ENCOUNTER 2017-04-02 10:46 | Emergency (ER) | payer MEDICARE, OTHER ==
[2017-04-02 11:18] VITALS: BP 102/58
[2017-04-02] MEDS ORDERED: Benzoin Compound STICK TOPICAL ONE (12:24)
--- NOTE | 2017-04-02 12:26 | UC ---
Laceration HPI - HPI Summary HPI Summary: ABOUT 10:30 AM WAS GETTING INTO A CAR WHEN SHE CAUGHT HER RLE ON THE DOOR. HAS A SKIN TEAR. LAST TETANUS 3 YRS AGO. - History Of Current Complaint Chief Complaint: UCLaceration Stated Complaint: LAC ON KNEE Time Seen by Provider: 04/02/17 12:15 Hx Obtained From: Patient, Family/Bingo Attendant - EX-DAUGHTER IN LAW Mechanism Of Injury: Sharp Trauma Onset/Duration: Sudden Onset, Lasting Hours, Still Present Severity: Moderate Pain Intensity: 7 Pain Scale Used: 0-10 Numeric Aggravating Factors: Nothing - Allergies/Home Medications Allergies/Adverse Reactions: Allergies Allergy/AdvReac Type Severity Reaction Status Date / Time Clarithromycin [From Biaxin] Allergy Rash Verified 04/02/17 11:19 PMH/Surg Hx/FS Hx/Imm Hx Endocrine History: Hypothyroidism Cardiovascular History: Hypertension, Atrial Fibrillation Respiratory History: COPD, Asthma Other History Of: Anticoagulant Therapy - coumadin - Surgical History Surgical History: Yes Surgery Procedure, Year, and Place: KNEE 2002, HAND 20+YRS AGO, BACK SURGERY FOR SCOLIOSIS AGE 14, TOTAL HYSTERECTOMY, CATARACTS, RETINA SURGERY TO REPLACE A HOLE IN RETINA 1993(?) - Family History Known Family History: Positive: Cardiac Disease - Social History Alcohol Use: None Substance Use Type: None Smoking Status (MU): Never Smoked Tobacco - Immunization History Most Recent Influenza Vaccination: 2016 Most Recent Tetanus Shot: 2014 Most Recent Pneumonia Vaccination: 2014 Review of Systems Constitutional: Negative Skin: Other - SKIN TEAR Respiratory: Negative Cardiovascular: Negative Gastrointestinal: Negative All Other Systems Reviewed And Are Negative: Yes Physical Exam Triage Information Reviewed: Yes Appearance: Well-Appearing, No Pain Distress, Well-Nourished Vital Signs: Initial Vital Signs Temp 97.8 F 04/02/17 11:14 Pulse 74 04/02/17 11:14 Resp 12 04/02/17 11:14 BP 102/58 04/02/17 11:14 Pulse Ox 100 04/02/17 11:14 Vital Signs Reviewed: Yes Eyes: Positive: Conjunctiva Clear ENT: Positive: Hearing grossly normal Neck: Positive: Supple Respiratory: Positive: No respiratory distress, No accessory muscle use Cardiovascular: Positive: Pulses Normal Abdomen Description: Positive: Soft Musculoskeletal: Positive: Edema @ - 3+ BILATERAL LOWER EXTREMITY EDEMA Neurological: Positive: Alert Psychological: Positive: Age Appropriate Behavior Skin: Positive: Other - 4CM SKIN TEAR RIGHT LATERAL LOWER LEG.. Negative: rashes Laceration Repair - Laceration Repair 1 Description: Stellate Laceration Size After Repair: Length (cm) - 4CM, Width (mm) - 1MM, Depth (mm) - 1MM Modified For Repair: No Cleansing Completed Via Routine Prep: Yes Closure Material: SteriStrips Laceration Course/Dx - Course/Dx Course Of Treatment: SKIN EDGES APPROXIMATED AND SECURED WITH STERISTRIPS. SUTURES NOT APPROPRIATE DUE TO FRIABLE NATURE OF SKIN - Differential Dx - Laceration/Wound Provider Diagnoses: SKIN TEAR RIGHT LATERAL LOWER LEG Discharge - Discharge Plan Condition: Stable Disposition: HOME Patient Education Materials: Skin Tear (ED) Referrals: Daniel Regan MD [Primary Care Provider] - If Needed Additional Instructions: SEEK FOLLOW-UP IF YOU DEVELOP SPREADING REDNESS OF THE SKIN, PURULENT DRAINAGE, FEVER, INCREASED PAIN OR ANY OTHER CONCERNING SYMPTOMS. THE STERISTRIPS WILL FALL OFF ON THEIR OWN IN THE NEXT 1-2 WEEKS. DO NOT PUT ANY OINTMENT ON TOP OF THEM. DO NOT SUBMERGE IN WATER FOR PROLONGED PERIOD OF TIME. OKAY FOR BRIEF SHOWER AFTER 24 HOURS AND THEN BE SURE TO ALLOW TO DRY COMPLETELY.
== END 2017-04-02 13:00 | disposition home or self-care (01) ==
LOC: UCEAST 10:46
DX: S81.011A Laceration without foreign body, right knee, initial encounter (principal); W22.8XXA Striking against or struck by other objects, initial encounter; Y92.9 Unspecified place or not applicable; J44.9 Chronic obstructive pulmonary disease, unspecified; I48.91 Unspecified atrial fibrillation; I10 Essential (primary) hypertension; J45.909 Unspecified asthma, uncomplicated; Z79.01 Long term (current) use of anticoagulants
CPT/HCPCS: 99212; G0463

== ENCOUNTER → 2017-04-05 11:51 | Emergency (ER) | payer MEDICARE, OTHER ==
[~2017-04-05 11:51] MED LIST changes: -Cephalexin CAP* 500 MG PO ONE; +Potassium Chlor TAB* 20 MEQ TAB.ER PO ONE
--- NOTE | 2017-04-05 12:50 | ED ---
Medical Screening - HPI Summary HPI Summary: Pt sent here from PCP's office for "low potassium lab" which was drawn yesterday as part of a routine PCP new patient visit. She denies sx of sweating , nausea, vomiting, diarrhea, chest pain. She has perpetual SOB from advanced COPD for which she uses inhaled and oral steroids as well as O2 at home. She takes a diuretic (60mg furosemide 2 x day) for LE edema. Daughter reports she was told she had renal failure at her most recent hospital visit. They were concerned about this and recently switched PCP's, hence the new pt blood work. Pt does not take potassium supplement and denies recent increase in use of steroids or breathing treatments. No other physical concerns at this time. She does have 2 wounds on her LE's which are being treated by a home nurse. The oldest is 2 months old - pt reports healing well and denies fever, chills, purulent drainage, redness or streaking. - History of Current Complaint Chief Complaint: EDGeneral Stated Complaint: IRREG LABS / SENT FROM DR Fontanez Seen by Provider: 04/05/17 12:05 PMH/Surg Hx/FS Hx/Imm Hx Previously Healthy: Yes Endocrine/Hematology History: Reports: Hx Anticoagulant Therapy - coumadin for a. fib, Hx Thyroid Disease - hypothyroidism - takes levothyroxine, Hx Anemia - Vit B 12 - receives cyanocobalamin monthly, Other Endocrine/Hematological Disorders - tapering down prednisone - recent concern for adrenal fatigue Denies: Hx Diabetes Cardiovascular History: Reports: Hx Atrial Fibrillation - amiodorone, coumadin, Hx Hypotension, Hx Hypertension - lisinopril (doesn't take), tenormin, Other Cardiovascular Problems/Disorders - furosemide 60mg BID for LE edema Denies: Hx Cardiac Arrest, Hx Hypercholesterolemia - per pt, no high colesterol nor h/o [place], CVA but takes crestor, Hx Myocardial Infarction, Hx Pacemaker/ICD Respiratory History: Reports: Hx Asthma, Hx Chronic Obstructive Pulmonary Disease (COPD) - HOME O2 / 2L + budesonide QID, combivent, fluticasone, montelukast GI History: Reports: Hx Gastroesophageal Reflux Disease - ranitidine (has famotidine on list but doesn't take), Other GI Disorders - colace for constipation PRN History: Reports: Other Problems/Disorders - "h/o renal failure" Denies: Hx Dialysis Musculoskeletal History: Reports: Hx Arthritis - OA, Hx Back Problems - chronic back pain - takes gabapentin, requip RLS, Hx Gout - takes colchicine for flair ups, Hx Scoliosis, Other Musculoskeletal History - polio; Vit D def - takes supplement Sensory History: Reports: Hx Cataracts, Hx Contacts or Glasses Denies: Hx Hearing Aid Opthamlomology History: Reports: Hx Cataracts, Hx Contacts or Glasses Neurological History: Denies: Hx Dementia, Hx Seizures, Other Neuro Impairments/Disorders Psychiatric History: Denies: Hx Panic Disorder - Surgical History Surgery Procedure, Year, and Place: KNEE 2002, HAND 20+YRS AGO, BACK SURGERY FOR SCOLIOSIS AGE 14, TOTAL HYSTERECTOMY, CATARACTS, RETINA SURGERY TO REPLACE A HOLE IN RETINA 1993(?) Infectious Disease History: No Infectious Disease History: Denies: Traveled Outside the [place] in Last 30 Days - Family History Known Family History: Positive: Cardiac Disease - Social History Occupation: Retired Lives: Alone - son lives in other side of her duplex Alcohol Use: None Hx Substance Use: No Substance Use Type: Reports: None Hx Tobacco Use: No Smoking Status (MU): Never Smoked Tobacco Review of Systems Constitutional: Negative Negative: Fever, Chills, Fatigue Cardiovascular: Negative Negative: Palpitations, Chest Pain Respiratory: Negative - no new sx -baseline breathing sx Gastrointestinal: Negative Positive: no symptoms reported Musculoskeletal: Negative - no muscle cramping Skin: Other - see HPI Neurological: Negative Negative: Headache, Weakness Psychological: Normal All Other Systems Reviewed And Are Negative: Yes Physical Exam Triage Information Reviewed: Yes Vital Signs On Initial Exam: Initial Vitals Temp Pulse Resp BP Pulse Ox 97.7 F 100 20 124/74 98 04/05/17 11:53 04/05/17 11:53 04/05/17 11:53 04/05/17 11:53 04/05/17 11:53 Vital Signs Reviewed: Yes Appearance: Positive: Well-Appearing - pt appears comfortable resting on stretcher, breathing appears somewhat labored however she and daughter assure me this is baseline, No Pain Distress, Obese Skin: Positive: Warm, Dry - 3 wounds on LE's covered with bandages which are dry - no foul odor, no erythema, no fever to touch, no induration Head/Face: Positive: Normal Head/Face Inspection ENT: Positive: Hearing grossly normal Neck: Positive: Nontender Respiratory/Lung Sounds: Positive: Breath Sounds Present - distant on Lt chest wall - pt has scoliosis (convex on Rt), Other - nasal cannula in place. Negative: Rales, Rhonchi, Stridor, Wheezes Cardiovascular: Positive: Pulses are Symmetrical in both Upper and Lower Extremities, Leg Edema Left, Leg Edema Right - feet with fluctuant edema of dorsal aspect - pt's daughter states this is always present, Other - irregularly irregular HR Abdomen Description: Positive: Nontender, Soft Bowel Sounds: Positive: Present Musculoskeletal: Positive: Normal, Strength/ROM Intact Neurological: Positive: Normal, Sensory/Motor Intact, Alert, Oriented to Person Place, Time, CN Intact II-III Psychiatric: Positive: Normal - Gracy Coma Scale Coma Scale Total: 15 Diagnostics - Vital Signs Vital Signs Temp Pulse Resp BP Pulse Ox 04/05/17 12:36 98.5 F 96 24 134/86 99 04/05/17 11:53 97.7 F 100 20 124/74 98 - Laboratory Result Diagrams: 04/05/17 12:34 Lab Statement: Any lab studies that have been ordered have been reviewed, and results considered in the medical decision making process. Re-Evaluation - Re-Evaluation First Eval Change: Unchanged - no change from baseline of feeling fine with taking PO potassium chloride - will provide another 20mEq and have her hold diuretic tonight and tomorrow - follow-up with PCP tomorrow Course/Dx - Course Course Of Treatment: Pt presents w/ low potassium from PCP's office. She has no sx of distress, illness, nor hypokalemia. Labs reveal K of 3.2, chloride 96, BUN..., creat..... She appears to have hypokalemia from her high dose of furosemide (120mg daily). She admits she held her dose this morning. Advised to hold doses tonight and tomorrow morning as well and f/u w/ PCP tomorrow as she needs vallejo adjustment of meds to prevent excess swelling but also shouldn't return to this regimen unless she has a K supplement to join it. Pt and daughter agree w/ plan. Will also report back to ED with danger s/sx as necessary. - Diagnoses Provider Diagnoses: Hypokalemia Discharge - Discharge Plan Condition: Stable Disposition: HOME Patient Education Materials: Hypokalemia (ED) Referrals: Daniel Regan MD [Primary Care Provider] - Additional Instructions: Your potassium level was low today. It is recommended that you hold your furosemide tonight and tomorrow morning to prevent further lower your potassium level. But you need to be seen by your PCP tomorrow - call today to schedule. You need a lower dose of furosemide, a new diuretic and/or a potassium supplement as this will most likely continue to be a problem if you continue on the same medication at the same dose. *If you develop fever, chills, fatigue, headache, weakness, nausea, vomiting, diarrhea, shortness of breath or chest pain, return to ED
[2017-04-05 14:10] LABS: Albumin 3.9 g/dL (3.2-5.2); Total Bilirubin 0.6 mg/dL (0.2-1.0)
[2017-04-05 14:20] LABS: BUN/Creatinine Ratio 24.8 (8-20); Calcium 9.6 mg/dL (8.6-10.3); EGFR African American 52.4 (>60); EGFR Non-African American 40.7 (>60); Globulin 2.4 g/dL (2-4); Magnesium 2.4 mg/dL (1.9-2.7); Total Protein 6.3 g/dL (6.4-8.9)
[2017-04-05 14:28] LABS: Potassium 3.2 mmol/L (3.5-5.0)
[2017-04-05 15:35] VITALS: BP 114/52
== END | disposition home or self-care (01) ==
LOC: ED 11:51
DX: E87.6 Hypokalemia (principal); Z86.79 Personal history of other diseases of the circulatory system; Z79.01 Long term (current) use of anticoagulants
CPT/HCPCS: 36415; 80053; 83735; 93005; 99283; A9270-GY

== ENCOUNTER 2017-04-12 21:14 | Inpatient (IN) | payer MEDICARE, OTHER ==
[2017-04-12 23:01] LABS: Hematocrit 38 % (35-47); Hemoglobin 12.4 g/dl (12.0-16.0); Mean Corpuscular HGB Conc 33 g/dl (31-36); Mean Corpuscular Hemoglobin 28 pg (27-31); Mean Corpuscular Volume 87 fL (80-97); Mean Platelet Volume 8 um3 (7.4-10.4); Red Blood Count 4.38 10^6/ul (4.0-5.4); Red Cell Distribution Width 16 % (10.5-15); White Blood Count 10.1 10^3/ul (3.5-10.8)
[2017-04-12 23:16] LABS: Albumin 4.3 g/dL (3.2-5.2); BUN/Creatinine Ratio 16.1 (8-20); Calcium 9.7 mg/dL (8.6-10.3); EGFR African American 52.9 (>60); EGFR Non-African American 41.1 (>60); Globulin 2.6 g/dL (2-4); Potassium 3.3 mmol/L (3.5-5.0); Total Bilirubin 0.9 mg/dL (0.2-1.0); Total Protein 6.9 g/dL (6.4-8.9)
[2017-04-13] MEDS ORDERED: Clindamycin 900 MG IVPREMIX(* 900 MG/50 ML SDV IV ONE (01:05)
--- NOTE | 2017-04-13 02:10 | ED ---
Skin Complaint - HPI Summary HPI Summary: Patient presents to the ED with daughters. She has been having a skin avulsion to the right side of the leg for 2 weeks. She was treated at and given a salve. She denies any infection symptoms since that time and has been having a visiting nurse change out the dressings, etc. Today, her daughter states she the erythema around the area and within 2 hours there was bright red erythema and warmth which extended out from the wound and now is just below the knee. There area is hot, painful to the touch and slightly indurated. The foot has diffuse swelling and has a large pocket of fluid in the dorsum of the feet bilaterally which is worse in the right foot. She has vasculopathies at baseline, but denies significant neuropathy. Multiple medications which were med-requed and affirmed. She notes to blood thinners. Denies numbness or tingling. Denies recent travel, smoking history. PMHx includes coagulopathy, afib and LULA. - History of Current Complaint Chief Complaint: EDExtremityLower Time Seen by Provider: 04/12/17 23:55 Stated Complaint: POSSIBLE INFECTION RT LEG/NAUSEA Hx Obtained From: Patient Onset/Duration: Started Hours Ago Skin Exposure Onset/Duration: Hours Ago Timing: Constant Onset Severity: Severe Current Severity: Severe Pain Intensity: 9 Pain Scale Used: 0-10 Numeric Skin Location: Leg Character: Pain, Redness Aggravating Symptom(s): Nothing Alleviating Symptom(s): Nothing Associated Signs & Symptoms: Tenderness, Red Streaks Related History: Trauma - Additional Pertinent History Primary Care Physician: HUSAM - Allergy/Home Medications Allergies/Adverse Reactions: Allergies Allergy/AdvReac Type Severity Reaction Status Date / Time Clarithromycin [From Biaxin] Allergy Rash Verified 04/12/17 21:31 PMH/Surg Hx/FS Hx/Imm Hx Previously Healthy: No Endocrine/Hematology History: Reports: Hx Anticoagulant Therapy - coumadin for a. fib, Hx Thyroid Disease - hypothyroidism - takes levothyroxine, Hx Anemia - Vit B 12 - receives cyanocobalamin monthly, Other Endocrine/Hematological Disorders - tapering down prednisone - recent concern for adrenal fatigue Denies: Hx Diabetes Cardiovascular History: Reports: Hx Atrial Fibrillation - amiodorone, coumadin, Hx Hypotension, Hx Hypertension - lisinopril (doesn't take), tenormin, Other Cardiovascular Problems/Disorders - furosemide 60mg BID for LE edema Denies: Hx Cardiac Arrest, Hx Hypercholesterolemia - per pt, no high colesterol nor h/o [place], CVA but takes crestor, Hx Myocardial Infarction, Hx Pacemaker/ICD Respiratory History: Reports: Hx Asthma, Hx Chronic Obstructive Pulmonary Disease (COPD) - HOME O2 / 2L + budesonide QID, combivent, fluticasone, montelukast GI History: Reports: Hx Gastroesophageal Reflux Disease - ranitidine (has famotidine on list but doesn't take), Other GI Disorders - colace for constipation PRN History: Reports: Other Problems/Disorders - "h/o renal failure" Denies: Hx Dialysis Musculoskeletal History: Reports: Hx Arthritis - OA, Hx Back Problems - chronic back pain - takes gabapentin, requip RLS, Hx Gout - takes colchicine for flair ups, Hx Scoliosis, Other Musculoskeletal History - polio; Vit D def - takes supplement Sensory History: Reports: Hx Cataracts, Hx Contacts or Glasses Denies: Hx Hearing Aid Opthamlomology History: Reports: Hx Cataracts, Hx Contacts or Glasses Neurological History: Denies: Hx Dementia, Hx Seizures, Other Neuro Impairments/Disorders Psychiatric History: Denies: Hx Panic Disorder - Surgical History Surgery Procedure, Year, and Place: KNEE 2002, HAND 20+YRS AGO, BACK SURGERY FOR SCOLIOSIS AGE 14, TOTAL HYSTERECTOMY, CATARACTS, RETINA SURGERY TO REPLACE A HOLE IN RETINA 1993(?) - Immunization History Hx Pertussis Vaccination: No Immunizations Up to Date: Unable to Obtain/Confirm Infectious Disease History: No Infectious Disease History: Denies: Traveled Outside the [place] in Last 30 Days - Family History Known Family History: Positive: Cardiac Disease - Social History Occupation: Unemployed, Retired Lives: Alone Alcohol Use: None Hx Substance Use: No Substance Use Type: Reports: None Hx Tobacco Use: No Smoking Status (MU): Never Smoked Tobacco Review of Systems Negative: Fever, Chills, Fatigue ENT: Negative Cardiovascular: Negative Negative: Shortness Of Breath Genitourinary: Negative Positive: no symptoms reported, see HPI Positive: Myalgia Positive: Other - erythematous area extending from toes to below the knee Neurological: Negative All Other Systems Reviewed And Are Negative: Yes Physical Exam Triage Information Reviewed: Yes Vital Signs On Initial Exam: Initial Vitals Temp Pulse Resp BP Pulse Ox 96.4 F 75 18 139/98 98 04/12/17 21:33 04/12/17 21:33 04/12/17 21:33 04/12/17 21:33 04/12/17 21:33 Vital Signs Reviewed: Yes Appearance: Positive: Well-Appearing, Well-Nourished Skin: Positive: Weeping Skin/Lesions - 1 weeping lesion to the lateral side of the leg, Erythema @ - toes to below the knee Head/Face: Positive: Normal Head/Face Inspection Eyes: Positive: Normal, STEPHANIE, Conjunctiva Clear Neck: Positive: Supple, No Lymphadenopathy Respiratory/Lung Sounds: Positive: Clear to Auscultation, Breath Sounds Present Cardiovascular: Positive: Normal, RRR, Pulses are Symmetrical in both Upper and Lower Extremities Musculoskeletal: Positive: Normal, Strength/ROM Intact Neurological: Positive: Speech Normal Psychiatric: Positive: Normal - Sterling Coma Scale Coma Scale Total: 15 Diagnostics - Vital Signs Vital Signs Temp Pulse Resp BP Pulse Ox 04/13/17 01:41 92 18 127/99 97 04/12/17 23:18 97.4 F 95 18 134/63 100 04/12/17 21:33 96.4 F 75 18 139/98 98 - Laboratory Lab Results: Lab Results 04/12/17 04/12/17 04/12/17 Range/Units 22:44 22:44 22:44 WBC 10.1 (3.5-10.8) 10^3/ul RBC 4.38 (4.0-5.4) 10^6/ul Hgb 12.4 (12.0-16.0) g/dl Hct 38 (35-47) % MCV 87 (80-97) fL MCH 28 (27-31) pg MCHC 33 (31-36) g/dl RDW 16 H (10.5-15) % Plt Count 212 (150-450) 10^3/ul MPV 8 (7.4-10.4) um3 Neut % (Auto) 88.5 H (38-83) % Lymph % (Auto) 6.9 L (25-47) % [place] % (Auto) 4.2 (1-9) % Eos % (Auto) 0.1 (0-6) % Baso % (Auto) 0.3 (0-2) % Absolute Neuts (auto) 8.9 H (1.5-7.7) 10^3/ul Absolute Lymphs (auto) 0.7 L (1.0-4.8) 10^3/ul Absolute Monos (auto) 0.4 (0-0.8) 10^3/ul Absolute Eos (auto) 0 (0-0.6) 10^3/ul Absolute Basos (auto) 0 (0-0.2) 10^3/ul Absolute Nucleated RBC 0 10^3/ul Nucleated RBC % 0 INR (Anticoag Therapy) 1.88 H (0.89-1.11) APTT 32.1 (26.0-36.3) seconds Sodium 138 (133-145) mmol/L Potassium 3.3 L (3.5-5.0) mmol/L Chloride 92 L (101-111) mmol/L Carbon Dioxide 39 H (22-32) mmol/L Anion Gap 7 (2-11) mmol/L BUN 20 (6-24) mg/dL Creatinine 1.24 H (0.51-0.95) mg/dL Est GFR ( Amer) 52.9 (>60) Est GFR (Non-Af Amer) 41.1 (>60) BUN/Creatinine Ratio 16.1 (8-20) Glucose 121 H (70-100) mg/dL Calcium 9.7 (8.6-10.3) mg/dL Total Bilirubin 0.90 (0.2-1.0) mg/dL AST 24 (13-39) U/L ALT 22 (7-52) U/L Alkaline Phosphatase 120 H (34-104) U/L Total Protein 6.9 (6.4-8.9) g/dL Albumin 4.3 (3.2-5.2) g/dL Globulin 2.6 (2-4) g/dL Albumin/Globulin Ratio 1.7 (1-3) Result Diagrams: 04/12/17 22:44 04/12/17 22:44 Lab Statement: Any lab studies that have been ordered have been reviewed, and results considered in the medical decision making process. Course/Dx - Course Course Of Treatment: Patient is evaluated for cellulitis and history of DVT. Patient was ordered a US prior to being seen by provider. US negative for DVT. The area of the right leg affected shows bright red coalescing petechial spots with warmth and painful to the touch which spread from 3 cm to covering the entire right lower extremity 3 inches below the knee to the toes with induration. Spoke with Dr. Cavazos regarding the rapid spread and he suggests zosyn and clindamycin. Spoke with Hospitalist Charmaine who requests a CT of the leg to assess for necrotizing fasciitis. Patient and daughters made aware of the plan and will likely admit pending the results of the CT. Macy made aware and signed out to him while awaiting CT scan at 2:30am. - Differential Diagnoses - Skin Complaint Differential Diagnoses: Cellulitis, Other - necrotizing fasciitis, SJS, MRSA - Diagnoses Provider Diagnoses: Cellulitis Discharge - Discharge Plan Condition: Stable Disposition: OTHER Discharge Disposition Comment: signed out to Dr. Cavazos at 2:[address] results
[2017-04-13] MEDS ORDERED: Iodixanol* (CONTRAST) 320 MG/ML 100 ML SDV IV ONE (03:28)
[2017-04-13] MEDS ORDERED: Nystatin OINT* 15 GM TOPICAL PRN (05:03)
[2017-04-13] MEDS ORDERED: Acetaminophen SUPP* 650 MG SUPP PR PRN (05:05)
--- NOTE | 2017-04-13 05:51 | ED ---
Erik Tripp Rebecca, scribed for Aidan Cavazos on 04/13/17 at 0525 . Progress - Progress Note Progress Note: Pt was signed out from REINA Genao. CT of the LE was ordered by her to assess for necrotizing fasciitis. - Results/Orders Results/Orders: CT LE as read by radiologist reveals: Possible cellulitis without evidence of necrotizing fasciitis, abscess or osteomyelitis. ED physician reviewed this radiology report and agrees. Course/Dx - Course Course Of Treatment: Dr. Montano evaluated the pt in the ED. Discussed care of pt at [address] Montano accepted the pt for admission. She is stable and willbe admitted to hospitalist services with Dx of cellulitis of the lowe rextremity. She understands and agrees. - Diagnoses Provider Diagnoses: Cellulitis of lower extremity The documentation as recorded by the Erik eugene Rebecca accurately reflects the service I personally performed and the decisions made by Macy prieto Emmanuel.
[2017-04-13] MEDS ORDERED: Cyanocobalamin INJ * 1,000 MCG/ML VIAL 1 ML VIAL IM SCH (06:00)
[2017-04-13] MEDS: Heparin VIAL(*) 5000 UNITS/ML VIAL (FIVE THOUSAND) SUBCUT SCH ×3 (06:50→21:24)
[2017-04-13] MEDS: ceFAZolin 1 GM VIAL(*) 1 GM in NS 0.9% 50 ML* 50 ML IVPB SCH ×3 (06:50→21:24)
[2017-04-13] MEDS: Levothyroxine TAB* 100 MCG TAB PO SCH (06:51)
--- NOTE | 2017-04-13 07:17 | RAD ---
INDICATION: Right lower extremity pain and swelling. COMPARISON: Comparison is made with prior study from February 21, 2012. TECHNIQUE: Multiple real-time, color flow and Doppler tracings of the right lower extremity were obtained. FINDINGS: The common femoral, femoral, profunda femoral and popliteal veins all demonstrate normal compressibility, augmentation with compression and phasic response with respiration. The posterior tibial and peroneal veins demonstrate normal compressibility and augmentation with compression. The exam of the calf is slightly limited due to edema. IMPRESSION: SLIGHTLY LIMITED EXAM, NO EVIDENCE FOR DEEP VENOUS THROMBOSIS.
[2017-04-13] MEDS: Levalbuterol 0.63MG/3ML NEB* UNIT OF USE INH PRN ×2 (08:38→12:58)
[2017-04-13] MEDS: Albuterol/Ipratropium RESP(NF) MDI (Combivent Respimat) INH SCH ×2 (08:39→12:59)
--- NOTE | 2017-04-13 08:43 | RAD ---
Indication: Possible RIGHT leg infection. RIGHT leg redness and hot feeling. Nausea. Comparison: April 12, 2017 RIGHT lower extremity venous ultrasound. Technique: CT of the RIGHT lower extremity from the supra geniculate region through the foot with 100 mL Visipaque 320 IV contrast. Multiplanar reformation. Report: Small knee joint effusion. Advanced osteoarthritis at the knee with severe patellofemoral and medial joint compartment joint space narrowing, subchondral sclerosis, osteophytosis. Negative for fracture or dislocation within the [id number]. No osteolysis or gross periosteal reaction evident. No suspicious focal osseous lesions evident. Osseous detail at the great toe is limited due to positioning. Subcutaneous edema most marked at the distal lower leg, ankle, and foot particularly over the dorsum of the foot without evidence for a loculated soft tissue plane abscess collection. No subcutaneous emphysema evident. No inflammatory change evident within the skeletal muscle compartment. Diffuse moderately advanced muscle atrophy. Three-vessel arterial runoff to the ankle. IMPRESSION: 1. Severe subcutaneous edema most marked over the dorsum of the foot without evidence for a loculated abscess collection. Negative for subcutaneous emphysema. No inflammatory change evident within the skeletal muscle compartment. 2. No compelling CT stigmata of osteomyelitis. 3. Advanced osteoarthritis at the knee. Associated small joint effusion.
--- NOTE | 2017-04-13 08:45 | HP ---
CC: Daniel Regan MD * HISTORY AND PHYSICAL: DATE OF ADMISSION: 04/13/17 PRIMARY CARE PHYSICIAN: Daniel Regan MD CHIEF COMPLAINT: Leg redness and pain. HISTORY OF PRESENT ILLNESS: The patient is an 86-year-old woman who says on Monday she hit her leg on the car door, just had some skin tear on it and it was very small. Despite this, she became concerned and went to [facility] where they simply put a bandage on it. At that time, it was reasonable as she had no swelling or pain, fevers or chills. However, by yesterday afternoon, it had significantly flared up to where half of the leg was red, hot, warm, and tender. She did not spike a fever, however. Because of the significant change , she came to the ED. On evaluating, the patient does appear to have right lower extremity cellulitis. The patient did have a CT scan in the ED to rule out the possibility of any kind of fasciitis. PAST MEDICAL HISTORY: Significant for: 1. Hypertension. 2. Atrial fibrillation, on Coumadin. 3. COPD, on 2 liters of oxygen and prednisone. 4. GERD. 5. Polio. 6. Hyperlipidemia. 7. Lower extremity edema. PAST SURGICAL HISTORY: Significant for: 1. Knee surgery. 2. Hand surgery. 3. Back surgery. 4. Hysterectomy. 5. Cataract surgery. CURRENT MEDICATIONS: Are as follows: 1. Prednisone 5 mg twice daily. 2. Ranitidine 150 mg twice daily. 3. Crestor 10 mg daily. 4. Furosemide 60 mg twice daily. 5. Pulmicort nebulizer 0.5 mg inhaled twice daily. 6. Allopurinol 300 mg daily. 7. Combivent 1 puff inhaled 4 times a day. 8. Atenolol 25 mg daily. 9. Amiodarone 100 mg daily. 10. Vitamin B12 1000 mcg IM monthly. 11. Lotrisone cream apply topical daily. 12. Cholecalciferol 1000 units daily. 13. Gabapentin 400 mg at bedtime. 14. Levothyroxine 100 mcg daily. 15. Xopenex 0.63 mg inhaled 3 times a day as needed. 16. Singulair 10 mg daily. 17. Ropinirole 2 mg at bedtime. 18. Warfarin 4 mg daily. ALLERGIES/ADVERSE REACTION: CLARITHROMYCIN. FAMILY HISTORY: Mother had coronary artery disease, so did the father. SOCIAL HISTORY: No tobacco, alcohol, or recreational drug use. Her daughter, Shandra, is her healthcare proxy. REVIEW OF SYSTEMS: A 14-point review of systems was completed with the patient. All pertinent positives and negatives are in the history of present illness, otherwise is negative. PHYSICAL EXAMINATION GENERAL: A pleasant woman, lying in bed, in no acute distress. VITAL SIGNS: Temperature 97.4 degrees, heart rate 95 beats per minute, respiratory rate 18 breaths per minute, pulse ox 100%, blood pressure 134/63. HEENT: Normocephalic, atraumatic. Pupils equal, round, reactive to light. Moist mucous membranes. NECK: Supple. No JVD, bruits, palpable thyroid, or lymphadenopathy. CHEST: Clear to auscultation and percussion bilaterally. CARDIOVASCULAR: S1, S2 appreciated. Irregular Irregular rhythm. ABDOMEN: Positive bowel sounds in all 4 quadrants. Soft, nontender, nondistended. EXTREMITIES: No cyanosis or clubbing. She has got significant right lower extremity edema, swelling, erythema, and warmth up to just below the knee. NEUROLOGIC: Alert and oriented x3. Moves all extremities. SKIN: Other than the aforementioned lesion, no distinct abnormalities. LABORATORY DATA: White count is 10.1, hemoglobin 12.4, hematocrit 38, platelets are 212. Sodium is 138, potassium 3.3, chloride 92, CO2 39, BUN 20, creatinine 1.24, glucose is 121. INR is 1.88. Lower extremity CT was interpreted by Radiology as follows, possible cellulitis without evidence of necrotizing fasciitis, abscess, or osteomyelitis. The patient has had a venous duplex, the results of which are not currently available. ASSESSMENT AND PLAN: 1. Cellulitis. Place the patient on Ancef 1 g IV q.8 hours and monitored resolution of cellulitis. 2. Atrial fibrillation. INR is somewhat subtherapeutic. Continue Coumadin and monitor INR. 3. Hypothyroidism, stable. Continue Synthroid. 4. Chronic obstructive pulmonary disease, stable. Continue current regimen. 5. FEN: Regular diet. 6. DVT prophylaxis: She is on Coumadin but subtherapeutic, as well as keep her on heparin subcu. 7. The patient is a DNR. TIME SPENT: Over 75 minutes was spent on this H and P, more than 40 minutes of which was spent on direct [id number] contact with the patient on evaluation, physical exam, counseling, and coordination of care. [id number]/[facility] #: [id number] CARLY
[2017-04-13] MEDS: Budesonide NEB* 0.5 MG/2 ML NEB.SOLN INH SCH ×4 (08:48→21:06)
[2017-04-13] MEDS: Amiodarone TAB* 200 MG PO SCH (09:24)
[2017-04-13] MEDS: Cholecalciferol TAB* 1000 UNITS PO SCH (09:27)
[2017-04-13] MEDS: predniSONE TAB* 5 MG PO SCH ×2 (09:27→21:23)
[2017-04-13] MEDS: Atorvastatin* 20 MG TAB PO SCH (09:27)
[2017-04-13] MEDS: Allopurinol TAB* 300 MG PO SCH (09:28)
[2017-04-13] MEDS: Montelukast Sodium TAB* 10 MG PO SCH (09:28)
[2017-04-13] MEDS: Famotidine TAB* 20 MG PO SCH (09:29)
[2017-04-13] MEDS: Furosemide TAB* 20 MG PO SCH (09:29)
[2017-04-13] MEDS: Clotrimazole/Betamethasone CREAM* 15 GM TOPICAL SCH ×2 (09:32→09:39)
[2017-04-13] MEDS: Atenolol TAB* 25 MG PO SCH (09:45)
--- NOTE | 2017-04-13 11:08 | PN ---
Subjective Date of Service: 04/13/17 Interval History: Patient seen this morning. Reports continued pain in RLE, does not seem to be getting worse. No fever or chills. Reports chronic breathing problems with COPD , on home O2 and on steroid taper at this time, breathing seems no worse than normal for her. Family History: Unchanged from Admission Social History: Unchanged from Admission Past Medical History: Unchanged from Admission Objective Active Medications: Acetaminophen (Tylenol Supp*) 650 mg VA Q4H PRN Albuterol/Ipratropium (Combivent Respimat(Nf)) 1 puff INH QID [facility] Allopurinol (Zyloprim Tab*) 300 mg PO DAILY [facility] Amiodarone HCl (Cordarone Tab*) 100 mg PO DAILY [facility] Atenolol (Tenormin Tab*) 25 mg PO DAILY [facility] Atorvastatin Calcium (Lipitor*) 20 mg PO DAILY [facility] Betamethasone/Clotrimazole (Lotrisone Cream*) 1 applic TOPICAL DAILY [facility] Budesonide (Pulmicort Neb*) 0.5 mg INH QID [facility] Cholecalciferol (Vitamin D Tab*) 1,000 units PO DAILY [facility] Cyanocobalamin (Vitamin B12 Inj *) 1,000 mcg IM MONTHLY [facility] Famotidine (Pepcid Tab*) 20 mg PO DAILY [facility] Furosemide (Lasix Tab*) 60 mg PO DAILY [facility] Gabapentin (Neurontin Cap(*)) 400 mg PO BEDTIME [facility] Heparin Sodium (Porcine) (Heparin Vial(*)) 5,000 units SUBCUT Q8HR [facility] Cefazolin Sodium 1 gm/ Sodium (Chloride) 50 mls @ 200 mls/hr IVPB Q8H [facility] Influenza Virus Vaccine (Fluarix *Quad* *) 0.5 ml IM .ONCE ONE Levalbuterol HCl (Xopenex 0.63mg/3ml Neb*) 0.63 mg INH TID PRN Levothyroxine Sodium (Synthroid Tab*) 100 mcg PO DAILY@0600 [facility] Montelukast Sodium (Singulair Tab*) 10 mg PO DAILY [facility] Nystatin (Nystatin Oint*) 1 applic TOPICAL BID PRN Prednisone (Deltasone Tab*) 5 mg PO BID [facility] Ropinirole HCl (Requip Tab*) 2 mg PO BEDTIME [facility] Warfarin Sodium (Coumadin Tab(*)) 4 mg PO DAILY@1700 [facility] Vital Signs 04/13/17 04/13/17 04/13/17 06:51 07:28 08:00 Temperature 97.8 F 98.1 F Pulse Rate 102 93 Respiratory 22 18 24 Rate Blood Pressure 152/102 103/73 (mmHg) O2 Sat by Pulse 97 100 Oximetry 04/13/17 04/13/17 08:49 09:41 Temperature Pulse Rate 98 Respiratory 18 Rate Blood Pressure 96/64 (mmHg) O2 Sat by Pulse 96 Oximetry Oxygen Devices in Use Now: Nasal Cannula - 2L Appearance: Elderly, F, laying in bed in NAD Eyes: No Scleral Icterus Ears/Nose/Mouth/Throat: Mucous Membranes Moist Neck: NL Appearance and Movements; NL JVP Respiratory: - - Mild tachypnea, no wheezing appreciated, fair air movement Cardiovascular: RRR Abdominal: NL Sounds; No Tenderness; No Distention Lymphatic: No Cervical Adenopathy Extremities: - - B/L LE edema Skin: - - RLE with significant deep erythema from dorsum of foot to just below knee, tender, warm, skin tear on medial aspect of menendez with some clear discharge Neurological: Alert and Oriented x 3 Result Diagrams: 04/12/17 22:44 04/12/17 22:44 Assess/Plan/Problems-Billing Assessment: RLE cellulitis in an 86 yo F with hx of COPD on home 2L, AFib on coumadin, HTN, GERD, HLD - Patient Problems (1) Cellulitis Current Visit: No Comment: RLE cellulitis. Continue IV Ancef, no progression past marked area, continue to monitor closely. (2) Atrial fibrillation Current Visit: No Comment: Continue coumadin and amiodarone. Atenolol held for soft BP. INR daily. (3) HTN (hypertension) Current Visit: No Comment: Continue Lasix. Atenolol held for soft BPs. (4) COPD (chronic obstructive pulmonary disease) Current Visit: No Comment: Does not appear to be in exacerbation At baseline severe obstructive and restrictive lung disease (PFT's 01/31/17: FEV1 37% predicted, TLC 66%) due to COPD and scoliosis. On chronic O2, 2Lnc Continue montelukast, nebulizers, steroid taper, currently on 5 mg BID (5) DVT prophylaxis Current Visit: No Comment: Coumadin/HSQ while subtherapeutic
[2017-04-13] MEDS ORDERED: Albuterol/Ipratropium NEB.SOL* Albuterol 2.5 MG/Ipratropium 0.5 MG 3 ML INH SCH (14:00)
[2017-04-13] MEDS: Albuterol/Ipratropium NEB.SOL* Albuterol 2.5 MG/Ipratropium 0.5 MG 3 ML INH SCH ×2 (16:34→21:06)
[2017-04-13] MEDS: Warfarin TAB(*) 4 MG PO SCH (17:45)
[2017-04-13] MEDS: Gabapentin CAP(*) 400 MG PO SCH (21:23)
[2017-04-13] MEDS: rOPINIRole TAB* 1 MG PO SCH (21:23)
[2017-04-14] MEDS ORDERED: Ondansetron INJ* 2 MG/ML VIAL IV PRN (00:46)
[2017-04-14] MEDS ORDERED: Ondansetron INJ* 2 MG/ML VIAL ONE (00:57)
[2017-04-14] MEDS: Levothyroxine TAB* 100 MCG TAB PO SCH (05:43)
[2017-04-14] MEDS: Heparin VIAL(*) 5000 UNITS/ML VIAL (FIVE THOUSAND) SUBCUT SCH (05:43)
[2017-04-14] MEDS: ceFAZolin 1 GM VIAL(*) 1 GM in NS 0.9% 50 ML* 50 ML IVPB SCH ×3 (05:43→22:03)
[2017-04-14 06:48] LABS: Hematocrit 30 % (35-47); Hemoglobin 9.9 g/dl (12.0-16.0); Mean Corpuscular HGB Conc 33 g/dl (31-36); Mean Corpuscular Hemoglobin 28 pg (27-31); Mean Corpuscular Volume 86 fL (80-97); Mean Platelet Volume 9 um3 (7.4-10.4); Red Cell Distribution Width 16 % (10.5-15); White Blood Count 10.2 10^3/ul (3.5-10.8)
[2017-04-14] MEDS: Cholecalciferol TAB* 1000 UNITS PO SCH (07:57)
[2017-04-14] MEDS: Allopurinol TAB* 300 MG PO SCH (07:57)
[2017-04-14] MEDS: Famotidine TAB* 20 MG PO SCH (07:57)
[2017-04-14] MEDS: Furosemide TAB* 20 MG PO SCH (07:57)
[2017-04-14] MEDS: predniSONE TAB* 5 MG PO SCH ×2 (07:58→20:56)
[2017-04-14] MEDS: Atorvastatin* 20 MG TAB PO SCH (07:58)
[2017-04-14] MEDS: Montelukast Sodium TAB* 10 MG PO SCH (07:58)
[2017-04-14] MEDS: Amiodarone TAB* 200 MG PO SCH (07:58)
[2017-04-14] MEDS: Budesonide NEB* 0.5 MG/2 ML NEB.SOLN INH SCH ×4 (07:59→20:00)
[2017-04-14] MEDS: Clotrimazole/Betamethasone CREAM* 15 GM TOPICAL SCH (07:59)
[2017-04-14] MEDS: Albuterol/Ipratropium NEB.SOL* Albuterol 2.5 MG/Ipratropium 0.5 MG 3 ML INH SCH ×4 (07:59→20:00)
[2017-04-14] MEDS ORDERED: Influenza VAC *QUAD* 2017-18* 0.5 ML SYRINGE IM ONE (09:00)
[2017-04-14] MEDS: Atenolol TAB* 25 MG PO SCH (09:50)
--- NOTE | 2017-04-14 15:19 | PN ---
Subjective Date of Service: 04/14/17 Interval History: Patient seen this afternoon. Reports improvement in symptoms today, feels pain and erythema improved. Still with significant discharge. Family History: Unchanged from Admission Social History: Unchanged from Admission Past Medical History: Unchanged from Admission Objective Active Medications: Acetaminophen (Tylenol Supp*) 650 mg IN Q4H PRN Albuterol/Ipratropium (Duoneb (Albuterol 2.5 Mg/Ipratropium 0.5 Mg)) 1 neb INH QID [facility] Allopurinol (Zyloprim Tab*) 300 mg PO DAILY [facility] Amiodarone HCl (Cordarone Tab*) 100 mg PO DAILY [facility] Atenolol (Tenormin Tab*) 25 mg PO DAILY [facility] Atorvastatin Calcium (Lipitor*) 20 mg PO DAILY [facility] Betamethasone/Clotrimazole (Lotrisone Cream*) 1 applic TOPICAL DAILY [facility] Budesonide (Pulmicort Neb*) 0.5 mg INH QID [facility] Cholecalciferol (Vitamin D Tab*) 1,000 units PO DAILY [facility] Cyanocobalamin (Vitamin B12 Inj *) 1,000 mcg IM MONTHLY [facility] Famotidine (Pepcid Tab*) 20 mg PO DAILY [facility] Furosemide (Lasix Tab*) 60 mg PO DAILY [facility] Gabapentin (Neurontin Cap(*)) 400 mg PO BEDTIME [facility] Cefazolin Sodium 1 gm/ Sodium (Chloride) 50 mls @ 200 mls/hr IVPB Q8H [facility] Levalbuterol HCl (Xopenex 0.63mg/3ml Neb*) 0.63 mg INH TID PRN Levothyroxine Sodium (Synthroid Tab*) 100 mcg PO DAILY@0600 [facility] Montelukast Sodium (Singulair Tab*) 10 mg PO DAILY [facility] Nystatin (Nystatin Oint*) 1 applic TOPICAL BID PRN Ondansetron HCl (Zofran Inj*) 4 mg IV Q4H PRN Prednisone (Deltasone Tab*) 5 mg PO BID [facility] Ropinirole HCl (Requip Tab*) 2 mg PO BEDTIME [facility] Warfarin Sodium (Coumadin Tab(*)) 4 mg PO DAILY@1700 [facility] Vital Signs 04/13/17 04/13/17 04/13/17 15:27 16:36 19:28 Temperature 98.1 F 98.8 F Pulse Rate 93 88 100 Respiratory 20 20 24 Rate Blood Pressure 109/73 102/55 (mmHg) O2 Sat by Pulse 100 98 100 Oximetry 04/13/17 04/13/17 04/13/17 20:15 21:08 21:23 Temperature Pulse Rate 58 Respiratory 20 20 20 Rate Blood Pressure (mmHg) O2 Sat by Pulse 93 Oximetry 04/13/17 04/13/17 04/14/17 23:20 23:23 00:40 Temperature 98.1 F 98.8 F Pulse Rate 103 126 Respiratory 22 22 24 Rate Blood Pressure 113/50 107/54 (mmHg) O2 Sat by Pulse 97 93 Oximetry 04/14/17 04/14/17 04/14/17 01:15 07:29 07:55 Temperature 98.0 F Pulse Rate 115 84 96 Respiratory 24 24 Rate Blood Pressure 109/67 (mmHg) O2 Sat by Pulse 94 99 98 Oximetry 04/14/17 04/14/17 08:56 11:11 Temperature 97.9 F Pulse Rate 105 Respiratory 22 22 Rate Blood Pressure 106/57 (mmHg) O2 Sat by Pulse 92 Oximetry Oxygen Devices in Use Now: Nasal Cannula - 2L Appearance: Elderly, F, laying in bed in NAD Eyes: No Scleral Icterus Ears/Nose/Mouth/Throat: Mucous Membranes Moist Neck: NL Appearance and Movements; NL JVP Respiratory: Symmetrical Chest Expansion and Respiratory Effort, - - Moderate air movement, no wheezing Cardiovascular: NL Sounds; No Murmurs; No JVD, RRR Abdominal: NL Sounds; No Tenderness; No Distention Lymphatic: No Cervical Adenopathy Extremities: - - Improvement in LE edema B/L Skin: - - Less erythema and warmth in RLE, less tenderness, did not full remove dressing today, will re-evaluate with next dressing change Neurological: Alert and Oriented x 3 Result Diagrams: 04/14/17 05:56 04/12/17 22:44 Microbiology and Other Data: Assess/Plan/Problems-Billing Assessment: RLE cellulitis in an 86 yo F with hx of COPD on home 2L, AFib on coumadin, HTN, GERD, HLD - Patient Problems (1) Cellulitis Current Visit: No Comment: RLE cellulitis improving. Continue IV ancef for another 24 hours (2) Atrial fibrillation Current Visit: No Comment: Continue coumadin and amiodarone. Resume Atenolol. INR daily. (3) HTN (hypertension) Current Visit: No Comment: Continue Lasix and Atenolol (4) COPD (chronic obstructive pulmonary disease) Current Visit: No Comment: Does not appear to be in exacerbation At baseline severe obstructive and restrictive lung disease (PFT's 01/31/17: FEV1 37% predicted, TLC 66%) due to COPD and scoliosis. On chronic O2, 2Lnc Continue montelukast, nebulizers, steroid taper, currently on 5 mg BID (5) DVT prophylaxis Current Visit: No Comment: Coumadin
[2017-04-14] MEDS: Warfarin TAB(*) 4 MG PO SCH (17:10)
[2017-04-14] MEDS: Gabapentin CAP(*) 400 MG PO SCH (20:56)
[2017-04-14] MEDS: rOPINIRole TAB* 1 MG PO SCH (20:58)
[2017-04-15] MEDS: Levothyroxine TAB* 100 MCG TAB PO SCH (05:39)
[2017-04-15] MEDS: ceFAZolin 1 GM VIAL(*) 1 GM in NS 0.9% 50 ML* 50 ML IVPB SCH (05:39)
[2017-04-15] MEDS: Albuterol/Ipratropium NEB.SOL* Albuterol 2.5 MG/Ipratropium 0.5 MG 3 ML INH SCH (08:06)
[2017-04-15] MEDS: Budesonide NEB* 0.5 MG/2 ML NEB.SOLN INH SCH (08:06)
[2017-04-15] MEDS: Atorvastatin* 20 MG TAB PO SCH (09:19)
[2017-04-15] MEDS: Allopurinol TAB* 300 MG PO SCH (09:19)
[2017-04-15] MEDS: Furosemide TAB* 20 MG PO SCH (09:20)
[2017-04-15] MEDS: Atenolol TAB* 25 MG PO SCH (09:20)
[2017-04-15] MEDS: predniSONE TAB* 5 MG PO SCH (09:20)
[2017-04-15] MEDS: Cholecalciferol TAB* 1000 UNITS PO SCH (09:20)
[2017-04-15] MEDS: Famotidine TAB* 20 MG PO SCH (09:21)
[2017-04-15] MEDS: Montelukast Sodium TAB* 10 MG PO SCH (09:21)
[2017-04-15] MEDS: Amiodarone TAB* 200 MG PO SCH (09:25)
[2017-04-15] MEDS: Clotrimazole/Betamethasone CREAM* 15 GM TOPICAL SCH (09:25)
[2017-04-15 09:32] VITALS: BP 112/89
--- NOTE | 2017-04-15 10:36 | DCNOTE ---
Patient seen this morning. Says leg continues to improve. Less pain, feels that redness continues to improve. Ambulating without issue. Breathing at baseline. On exam, RRR, s1 and s2 present, no m/g/r, lungs with good air movement, no wheezing, RLE with improving edema and erythema, still some clear/yellow discharge. Will plan to discharge on oral Keflex for additional 5 days. Should follow-up with wound clinic and PCP.
--- NOTE | 2017-04-15 17:34 | DS ---
CC: Dr. Washington Regan * DISCHARGE SUMMARY: DATE OF ADMISSION: 04/13/17 DATE OF DISCHARGE: 04/15/17 PRIMARY CARE PHYSICIAN: Dr. Daniel Regan. PRINCIPAL DISCHARGE DIAGNOSIS: Right lower extremity cellulitis. SECONDARY DIAGNOSES: 1. Hypertension. 2. Atrial fibrillation, on Coumadin. 3. Chronic obstructive pulmonary disease, on home oxygen and chronic prednisone. 4. Gastroesophageal reflux disease. 5. Hyperlipidemia. 6. Chronic lower extremity edema. STUDIES DONE DURING HOSPITALIZATION: Right lower extremity Doppler, impression: Slightly limited exam, no evidence for DVT. Right lower extremity CT scan, impression: Severe subcutaneous edema most marked over the dorsum of the foot without evidence for a loculated abscess collection. Negative for subcutaneous emphysema. No inflammatory change evident within the skeletal muscle compartment. No compelling CT stigmata of osteomyelitis. Advanced OA of the knee associated with small joint effusion. DISCHARGE MEDICATION REGIMEN: 1. Keflex 250 mg by mouth 4 times daily. 2. Coumadin on hold until INR becomes less than 3. 3. Requip 2 mg by mouth at bedtime. 4. Singulair 10 mg by mouth daily. 5. Xopenex 0.63 mg inhaler 3 times daily as needed for shortness of breath or wheezing. 6. Synthroid 100 mcg by mouth daily. 7. Gabapentin 400 mg by mouth at bedtime. 8. Vitamin D3 1000 units by mouth daily. 9. Lotrisone 1 application topical daily. 10. Vitamin B12 1000 mcg IM monthly. 11. Amiodarone 100 mg by mouth daily. 12. Atenolol 25 mg by mouth daily. 13. Combivent 1 puff inhaled 4 times daily. 14. Allopurinol 300 mg by mouth daily. 15. Pulmicort 0.5 mg inhaled 2 times daily. 16. Lasix 60 mg by mouth 2 times daily. 17. Rosuvastatin 10 mg by mouth daily. 18. Ranitidine 150 mg by mouth 2 times daily. 19. Prednisone 5 mg by mouth 2 times daily. HISTORY OF PRESENT ILLNESS AND HOSPITAL SUMMARY: Please see the full history and physical by Dr. Arnel Montano for full details. Briefly, Ms. Degroot is an 86 -year- old female with past medical history as above, who presented to the hospital after she had increased erythema, swelling and pain in her right leg few days after a skin tear sustained by hitting her leg in the car door. It seems that the symptoms came out fairly quickly just likely indicative of a possible strep infection. The patient was started on IV Ancef, and over the following days had significant improvement in her symptoms. She did have a significant amount of discharge, which was likely due to her chronic lower extremity edema in combination with the cellulitis and skin tear. She was treated with ABD pads and Kerlix and was instructed to follow up in the wound care clinic for this, as well as the more chronic wound she has in the left lower extremity. The patient will be discharged home on oral Keflex and will follow up with her PCP as an outpatient. Of note, patient's INR was supratherapeutic on the day of discharge. She states she has a monitor at home and she was instructed to hold her Coumadin until her INR drops back below 3. She also states that she will be in touch with Dr. Phillips's office who will begin controlling her Coumadin dosing. TIME SPENT: Total times spent on this discharge, 35 minutes. This is a summary of the hospitalization. Please see the full medical record for further details. [id number]/[facility] #: [id number] MTDD
== END 2017-04-15 13:10 | disposition home or self-care (01) | DRG 603 ==
LOC: ED 21:14 → MED 04-13 05:05
PROVIDERS: ADMIT Internal Medicine; ATTEND Hospitalist
PROC: 3E0234Z Introduction of Serum, Toxoid and Vaccine into Muscle, Percutaneous Approach (ICD-10-PCS; principal; 2017-04-14)
DX: L03.115 Cellulitis of right lower limb (principal); I48.91 Unspecified atrial fibrillation; J44.9 Chronic obstructive pulmonary disease, unspecified; I10 Essential (primary) hypertension; E78.5 Hyperlipidemia, unspecified; K21.9 Gastro-esophageal reflux disease without esophagitis; E03.9 Hypothyroidism, unspecified; Z66 Do not resuscitate; M10.9 Gout, unspecified; G89.29 Other chronic pain; M54.9 Dorsalgia, unspecified; R40.2412 Glasgow coma scale score 13-15, at arrival to emergency department; R60.0 Localized edema; M17.11 Unilateral primary osteoarthritis, right knee; M25.461 Effusion, right knee; R79.1 Abnormal coagulation profile; T45.515A Adverse effect of anticoagulants, initial encounter; S81.811A Laceration without foreign body, right lower leg, initial encounter; W22.8XXA Striking against or struck by other objects, initial encounter; Y92.9 Unspecified place or not applicable; Z99.81 Dependence on supplemental oxygen; Z88.1 Allergy status to other antibiotic agents; Z90.710 Acquired absence of both cervix and uterus; Z98.49 Cataract extraction status, unspecified eye; Z82.49 Family history of ischemic heart disease and other diseases of the circulatory system; Z23 Encounter for immunization; Z79.52 Long term (current) use of systemic steroids
CPT/HCPCS: 36415; 80053; 85025; 85610; 85730; 87040; 90686; 94640; 94760; A9270-GY; J0690; J1644; J2405; J2543; J7512; J7615; Q9967

== ENCOUNTER 2017-05-30 08:35 | Emergency (ER) | payer MEDICARE, OTHER ==
--- NOTE | 2017-05-30 09:52 | RAD ---
INDICATION: Pain and swelling. COMPARISON: None TECHNIQUE: Duplex interrogation of the left lowerextremity was performed. FINDINGS: Deep veins: The common femoral, great saphenous, profunda femoris, proximal, mid, and distal deep femoral, popliteal, posterior tibial, and peroneal veins are patent. There is normal compressibility, augmentation, and phasic flow. Evaluation the calf veins is limited, however, due to the patient's inability to tolerate compression Superficial veins: There are no findings of superficial thrombophlebitis. Popliteal fossa:There is no evidence of a popliteal cyst. Soft tissues: There is edema. IMPRESSION: No evidence of deep venous thrombosis. Mildly limited evaluation the calf veins
[2017-05-30 10:16] LABS: Hematocrit 33 % (35-47); Hemoglobin 10.2 g/dl (12.0-16.0); Mean Corpuscular HGB Conc 31 g/dl (31-36); Mean Corpuscular Hemoglobin 25 pg (27-31); Mean Corpuscular Volume 81 fL (80-97); Mean Platelet Volume 9 um3 (7.4-10.4); Red Blood Count 4.12 10^6/ul (4.0-5.4); Red Cell Distribution Width 18 % (10.5-15); White Blood Count 12.2 10^3/ul (3.5-10.8)
[2017-05-30] MEDS ORDERED: cefTRIAXone VIAL(*) 1,000 MG in NS 0.9% 50 ML* 50 ML IVPB ONE (10:26)
[2017-05-30 10:33] LABS: Albumin 3.6 g/dL (3.2-5.2); BUN/Creatinine Ratio 13.2 (8-20); C Reactive Protein 11.35 mg/L (< 5.00); Calcium 9.3 mg/dL (8.6-10.3); EGFR African American 47.5 (>60); Globulin 2.5 g/dL (2-4); Potassium 3.2 mmol/L (3.5-5.0); Total Bilirubin 1.2 mg/dL (0.2-1.0); Total Protein 6.1 g/dL (6.4-8.9)
[2017-05-30] MEDS ORDERED: Potassium Chlor TAB* 20 MEQ TAB.ER PO ONE (11:30)
[2017-05-30 11:50] LABS: Erythrocyte Sed Rate 36 mm/Hr (0-40)
[2017-05-30 13:31] VITALS: BP 100/43
--- NOTE | 2017-05-31 18:50 | ED ---
Kristen Tripp Thomas, scribed for Kehinde Rodriguez MD on 05/30/17 at 0936 . Skin Complaint - HPI Summary HPI Summary: The pt is an 86 y/o F c/o an open wound on the dorsal aspect of LLE resulting from a tear when using the shower about a week ago. The wound has been draining frequently with bandage changes daily. She presents to the ED because today the surrounding area became erythematous and tender. The pain is rated 8/10. The pain is aggravated by touch and is alleviated by nothing. 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 She is not on a blood thinner. She is not on antihypertensive medication and her normal blood pressure is 130/80, per daughter. She is accompanied by her daughter. - History of Current Complaint Chief Complaint: EDExtremityLower Time Seen by Provider: 05/30/17 08:53 Stated Complaint: LT LEG/POSS INFECTION Hx Obtained From: Patient, Family/It Senior Analyst - daughter present Onset/Duration: Started Weeks Ago - onset of open wound one week ago, Still Present, Worse Since - this AM Timing: Constant Pain Intensity: 8 Pain Scale Used: 0-10 Numeric Skin Location: Other: - dorsal aspect of LLE Character: Pain Aggravating Symptom(s): Touch Alleviating Symptom(s): Nothing - Additional Pertinent History Primary Care Physician: [id number] - Allergy/Home Medications Allergies/Adverse Reactions: Allergies Allergy/AdvReac Type Severity Reaction Status Date / Time Clarithromycin [From Biaxin] Allergy Rash Verified 04/12/17 21:31 PMH/Surg Hx/FS Hx/Imm Hx Previously Healthy: No Endocrine/Hematology History: Reports: Hx Anticoagulant Therapy - coumadin for a. fib, Hx Thyroid Disease - hypothyroidism - takes levothyroxine, Hx Anemia - Vit B 12 - receives cyanocobalamin monthly, Other Endocrine/Hematological Disorders - tapering down prednisone - recent concern for adrenal fatigue Denies: Hx Diabetes Cardiovascular History: Reports: Hx Atrial Fibrillation - amiodorone, coumadin, Hx Hypotension, Hx Hypertension - lisinopril (doesn't take), tenormin, Other Cardiovascular Problems/Disorders - furosemide 60mg BID for LE edema Denies: Hx Cardiac Arrest, Hx Hypercholesterolemia - per pt, no high colesterol nor h/o [place], CVA but takes crestor, Hx Myocardial Infarction, Hx Pacemaker/ICD Respiratory History: Reports: Hx Asthma, Hx Chronic Obstructive Pulmonary Disease (COPD) - HOME O2 / 2L + budesonide QID, combivent, fluticasone, montelukast GI History: Reports: Hx Gastroesophageal Reflux Disease - ranitidine (has famotidine on list but doesn't take), Other GI Disorders - colace for constipation PRN History: Reports: Other Problems/Disorders - "h/o renal failure" Denies: Hx Dialysis Musculoskeletal History: Reports: Hx Arthritis - OA, Hx Back Problems - chronic back pain - takes gabapentin, requip RLS, Hx Gout - takes colchicine for flair ups, Hx Scoliosis, Other Musculoskeletal History - polio; Vit D def - takes supplement Sensory History: Reports: Hx Cataracts, Hx Contacts or Glasses Denies: Hx Hearing Aid Opthamlomology History: Reports: Hx Cataracts, Hx Contacts or Glasses Neurological History: Denies: Hx Dementia, Hx Seizures, Other Neuro Impairments/Disorders Psychiatric History: Denies: Hx Panic Disorder - Surgical History Surgery Procedure, Year, and Place: KNEE 2002, HAND 20+YRS AGO, BACK SURGERY FOR SCOLIOSIS AGE 14, TOTAL HYSTERECTOMY, CATARACTS, RETINA SURGERY TO REPLACE A HOLE IN RETINA 1993(?) Infectious Disease History: No Infectious Disease History: Denies: Traveled Outside the [place] in Last 30 Days - Family History Known Family History: Positive: Cardiac Disease - Social History Alcohol Use: None Hx Substance Use: No Substance Use Type: Reports: None Hx Tobacco Use: No Smoking Status (MU): Never Smoked Tobacco Review of Systems Negative: Fever Positive: Other - Open wound to LLE (with erythema and tenderness) All Other Systems Reviewed And Are Negative: Yes Physical Exam - Summary Physical Exam Summary: VITAL SIGNS: Reviewed. GENERAL: Patient is a elderly female who is lying comfortable in the stretcher. She is on chronic oxygen. Patient is not in any acute respiratory distress. HEAD AND FACE: No signs of trauma. No ecchymosis, hematomas or skull depressions. No sinus tenderness. EYES: PERRLA, EOMI x 2, No injected conjunctiva, no nystagmus. EARS: Hearing grossly intact. Ear canals and tympanic membranes are within normal limits. MOUTH: Oropharynx within normal limits. NECK: Supple, trachea is midline, no adenopathy, no JVD, no carotid bruit, no c- spine tenderness, neck with full ROM. CHEST: Symmetric, no tenderness at palpation LUNGS: Clear to auscultation bilaterally. No wheezing or crackles. CVS: Regular rate and rhythm, S1 and S2 present, no murmurs or gallops appreciated. ABDOMEN: Soft, non-tender. No signs of distention. No rebound no guarding, and no masses palpated. Bowel sounds are normal. EXTREMITIES: In her LLE, she has positive swelling, erythema, and tenderness. FROM in all major joints, no cyanosis or clubbing. NEURO: Alert and oriented x 3. No acute neurological deficits. Speech is normal and follows commands. SKIN: Dry and warm. She has a small area of an open wound in the dorsal aspect of the LLE. Triage Information Reviewed: Yes Vital Signs On Initial Exam: Initial Vitals Temp Pulse Resp BP Pulse Ox 97 F 59 22 108/86 91 05/30/17 08:39 05/30/17 08:39 05/30/17 08:39 05/30/17 08:39 05/30/17 08:39 Vital Signs Reviewed: Yes - Gracy Coma Scale Coma Scale Total: 15 Diagnostics - Vital Signs Vital Signs Temp Pulse Resp BP Pulse Ox 05/30/17 09:00 88 99/68 96 05/30/17 08:55 93 93 05/30/17 08:54 95/55 05/30/17 08:39 97 F 59 22 108/86 91 - Laboratory Result Diagrams: 05/30/17 09:49 05/30/17 09:49 Lab Statement: Any lab studies that have been ordered have been reviewed, and results considered in the medical decision making process. - Additional Comments Diagnostic Additional Comments: US LLE. Interpreted by radiologist. Impression: No evidence of deep venous thrombosis. Mildly limited evaluation the calf veins. ED physician has reviewed this report and agrees. Course/Dx - Course Assessment/Plan: The pt is an 86 y/o F c/o an open wound on the dorsal aspect of LLE resulting from a tear when using the shower about a week ago. The wound has been draining frequently with bandage changes daily. She presents to the ED because today the surrounding area became erythematous and tender. The pain is rated 8/10. The pain is aggravated by touch and is alleviated by nothing. 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 She is not on a blood thinner. She is not on antihypertensive medication and her normal blood pressure is 130/80, per daughter. She is accompanied by her daughter. Test results show WBC 12.2, a slight chronic anemia, creatinine 1.36 which is baseline for her, CRP 11.3, and potassium 3.2 for which she was given potassium chloride. Ultrasound of the LLE shows no DVT. Therefore, I believe the patients symptoms are secondary to cellulitis. The patient was given Rocephin and discharged with Bactrim. The patient is hemodynamically stable and alert and oriented x 3. - Diagnoses Provider Diagnoses: Cellulitis Discharge - Discharge Plan Condition: Stable Disposition: HOME Prescriptions: Sulfamethox/Trimethoprim DS* [Bactrim DS 800/160 TAB*] 1 tab PO BID #20 tab Patient Education Materials: Cellulitis (ED) Referrals: Farhan Cohen DO [Primary Care Provider] - 3 Days Additional Instructions: Follow up with your primary care provider in 2-3 days. Return to the emergency department for any new or worsening symptoms. The documentation as recorded by the Kristen eugene Thomas accurately reflects the service I personally performed and the decisions made by me, Kehinde Rodriguez MD.
== END 2017-05-30 12:32 | disposition home or self-care (01) ==
LOC: ED 08:35
DX: L03.90 Cellulitis, unspecified (principal); Z79.01 Long term (current) use of anticoagulants; Z86.79 Personal history of other diseases of the circulatory system; M79.605 Pain in left leg
CPT/HCPCS: 36415; 80053; 83605; 85025; 85652; 86140; 87040; 99283; A9270-GY; J0696

== ENCOUNTER 2017-06-07 15:44 | Inpatient (IN) | payer MEDICARE, OTHER ==
[2017-06-07] MEDS ORDERED: NS 0.9% 1000 ML* 500 ML IV ONE (16:07)
[2017-06-07 16:30] LABS: Hematocrit 30 % (35-47); Hemoglobin 9.7 g/dl (12.0-16.0); Mean Corpuscular HGB Conc 33 g/dl (31-36); Mean Corpuscular Hemoglobin 26 pg (27-31); Mean Corpuscular Volume 79 fL (80-97); Mean Platelet Volume 8 um3 (7.4-10.4); Red Blood Count 3.77 10^6/ul (4.0-5.4); Red Cell Distribution Width 18 % (10.5-15); White Blood Count 8.5 10^3/ul (3.5-10.8)
[2017-06-07 16:52] LABS: Troponin I 0.06 ng/mL (<0.04)
--- NOTE | 2017-06-07 17:02 | RAD ---
INDICATION: Short of breath COMPARISON: February 11, 2017 TECHNIQUE: AP seated and lateral views were obtained. FINDINGS: Bones/Soft Tissues: There are no acute bony findings. There is osteopenia with prominent kyphoscoliosis Cardiomediastinal: Cardiac silhouette is enlarged. Lungs: Limited examination but no definite infiltrates. Interstitial prominence suggests mild interstitial congestion. There is fluid within the fissures. Pleura: As above. Other: None IMPRESSION: ENLARGED CARDIAC SILHOUETTE WITH MILD INTERSTITIAL CONGESTION
[2017-06-07 17:08] LABS: Albumin 3.5 g/dL (3.2-5.2); BUN/Creatinine Ratio 12.7 (8-20); C Reactive Protein 20.43 mg/L (< 5.00); Calcium 9.2 mg/dL (8.6-10.3); Globulin 2.6 g/dL (2-4); Potassium 4.5 mmol/L (3.5-5.0); Total Bilirubin 0.3 mg/dL (0.2-1.0); Total Protein 6.1 g/dL (6.4-8.9)
[2017-06-07 17:46] LABS: Erythrocyte Sed Rate 41 mm/Hr (0-40)
[2017-06-07] MEDS ORDERED: Norepinephrine 16MCG/ML IVPRE* 8,000 MCG/500 ML BAG IV ONE (17:46)
[2017-06-07 17:59] LABS: Urine Bacteria Absent (Absent); Urine Bilirubin Negative (Negative); Urine Glucose Negative (Negative); Urine Nitrite Negative (Negative)
[2017-06-07] MEDS ORDERED: Norepinephrine 16MCG/ML IVPRE* 4,000 MCG/250 ML BAG IV SCH ×2 (18:00→19:00)
[2017-06-07] MEDS ORDERED: Hydrocortisone INJ* 100 MG VIAL ONE (18:03)
[2017-06-07] MEDS ORDERED: Hydrocortisone INJ* 100 MG VIAL IV ONE (18:11)
[2017-06-07] MEDS ORDERED: NS 0.9% 500 ML* 500 ML IV ONE (18:13)
[2017-06-07 18:54] LABS: PCO2 Arterial 59 mmHg (35-45)
[2017-06-07] MEDS: NS 0.9% 1000 ML* 1,000 ML IV SCH ×2 (19:52→20:08)
[2017-06-07] MEDS: Albuterol/Ipratropium RESP(NF) MDI (Combivent Respimat) INH SCH (20:50)
[2017-06-07] MEDS: Budesonide NEB* 0.5 MG/2 ML NEB.SOLN INH SCH (20:50)
[2017-06-07] MEDS: Albuterol 2.5 MG/3 ML NEB.SOL* (0.083%) INH PRN (20:50)
[2017-06-07] MEDS: Hydrocortisone INJ* 100 MG VIAL IV SCH (20:55)
[2017-06-07] MEDS ORDERED: Gabapentin CAP(*) 400 MG PO SCH (21:00)
--- NOTE | 2017-06-07 21:51 | HP ---
CC: Dr. Cohen.* HISTORY AND PHYSICAL: DATE OF ADMISSION: 06/07/17 PRIMARY CARE PROVIDER: Iker Miller. ATTENDING PHYSICIAN: Dr. Arnel Montano* (report being dictated by Mane Chiu NP). CHIEF COMPLAINT: 1. Weakness. 2. Fatigue. 3. Abdominal discomfort. 4. Nausea. 5. Anorexia. HISTORY OF PRESENT ILLNESS: Ms. Degroot is an 86-year-old female patient, who carries a history of hypertension, Afib, COPD, GERD, polio, hyperlipidemia, lower extremity edema, which is chronic, and renal insufficiency. She was here in the ED about a week ago. She was diagnosed with cellulitis. She was sent home and she was treated with p.o. Bactrim. The cellulitis improved and she was doing better. However, over the last week she has had progressive decline, not feeling well, has been having difficulty with fatigue and weakness. She was also noted to again have a decreased appetite. She had been complaining of having some diarrhea along with some nausea. The patient came to our ED today. It was noted that she was profoundly hypotensive. She had altered mental status. She had been again confused and we were asked to evaluate for admission. The family states there has been no chest pain, no shortness of breath, no coughing. They say actually the cellulitis, and the patient says as well, is much improved. But because of the hypotension and the fact that her troponin was elevated, we were asked to evaluate for admission. PAST MEDICAL HISTORY: Significant for: 1. Hypertension. 2. Afib. 3. COPD. 4. GERD. 5. Polio. 6. Hyperlipidemia. 7. Lower extremity edema. 8. Adrenal insufficiency. PAST SURGICAL HISTORY: The patient has had 1. Knee surgery. 2. Hand surgery. 3. Back surgery. 4. Hysterectomy. 5. Cataract surgery. MEDICATION: Home meds include: 1. Potassium 10 mEq p.o. 4 times a day. 2. Lopressor 25 mg p.o. b.i.d. 3. Combivent one puff inhaled 4 times a day. 4. Allopurinol 300 mg p.o. daily. 5. B12 of 1000 mcg IM monthly. 6. Lotrisone cream one application topically daily. 7. Vitamin D 1000 units p.o. daily. 8. Pulmicort 0.5 mg inhaled b.i.d. 9. Synthroid 100 mcg daily. 10. Xopenex 0.63 mg inhaled t.i.d. as needed. 11. Gabapentin 400 mg daily. 12. Lasix 60 mg p.o. b.i.d. 13. Crestor 10 mg daily. 14. Zantac 150 mg p.o. b.i.d. 15. Singulair 10 mg daily. 16. Prednisone 5 mg a day. 17. Bactrim 1 tablet p.o. b.i.d. 18. Requip 2 mg p.o. at bedtime. ALLERGY: Her allergy to medication include BIAXIN. FAMILY HISTORY: Both parents had heart disease. SOCIAL HISTORY: She does not smoke. She does not drink. Surrogate decision maker is her daughter, Any. REVIEW OF SYSTEMS: There is no documented fever. She denied having any significant weight change. There was no double vision. She denies having any ear discharge. There is no rhinorrhea, no sore throat, no thyroid enlargement. Denied having any chest pain or orthopnea. There is no nocturnal dyspnea. There was abdominal discomfort, mostly epigastric. There was anorexia. There was some nausea, vomiting, and diarrhea, with nausea and vomiting particularly in the morning. No dysuria. No frequency. There was no loss of consciousness. No pruritus and no skin ulceration. Review of all 14 systems completed, all others are negative. PHYSICAL EXAMINATION GENERAL: At this time Ms. Degroot is an 86-year-old female patient. She is sitting on the ER stretcher. She does not appear to be in any acute distress. She is awake and she is alert. VITAL SIGNS: Initially, her blood pressure was noted to be 79/54, the pulse is 73, respirations 20, O2 sat 95%, temperature 96. Last blood pressure 78/50, and the most recent one was 124/105. Again, heart rate 60, respirations 18, O2 sat 96%. HEENT: Head atraumatic. Eyes: EOMs intact. Sclerae anicteric and not pale. Throat: Oral mucosa appears to be dry. No oropharyngeal erythema. NECK: Supple. LUNGS: Clear to auscultation. No wheezes, rales or rhonchi. HEART: Heart sounds S1 and S2. Regular rate and rhythm. No murmurs, rubs or gallops. ABDOMEN: Soft and flat. There was tenderness in the epigastric area, but bowel sounds were present. EXTREMITIES: Pulses are 2+ throughout. She did have +3 pitting edema bilaterally. Skin was intact. She did have two open areas noted to the left lower extremity, just above her left ankle. NEUROLOGIC: She is awake. She is alert. She knows her name. She knows where she is. Confused to time. Speech is clear. Tongue midline. She has no gross focal deficits. SKIN: Again, grossly intact with the exception of the aforementioned skin tears. LABORATORY DATA/DIAGNOSTIC STUDIES: Labs revealed a WBC of 8.5, RBC of 3.77, hemoglobin of 9.7, hematocrit of 30, platelet count of 245. The INR was 1.26, PTT at 34.6. Fibrinogen was 416. Blood gas pending. Sodium 132, potassium 4.5 , chloride 96, bicarb 31, BUN 40, creatinine of 3.16, glucose 106, lactate 1.7, calcium 9.2, total bili 0.3, AST 26, ALT 18, alk phos 105. Her CRP was 20. The albumin was 3.5. Urine pending. Serology for flu was negative. She did have a chest x-ray obtained today, which showed enlarged cardiac silhouette with mild interstitial congestion. There was an EKG obtained today which showed atrial fibrillation at 165, although no ST elevations or T-wave inversions were noted. Old medical records reviewed. ASSESSMENT AND PLAN: Ms. Degroot is an 86-year-old female patient coming into the ER today with complaints of altered mental status. We were asked to evaluate for admission. She will be admitted under inpatient status for: 1. Altered mental status: Again, I suspect this is probably related to adrenal insufficiency. This could certainly cause the abdominal pain and can cause the nausea and no vomiting. My plan is to give her hydrocortisone 100 q.8. Her cortisol level randomly in January were 1. I am going to add on a cortisol level with her labs today to see where she is running. I suspect, in the setting of recent infection and not getting stress dose steroids, this may have been enough to throw her almost into crisis. Plan: We will go ahead and hydrate her. They have been giving her saline. They gave her a liter downstairs. I am going to continue saline at 100 and we will go ahead and again continue stress dose steroids and then slowly wean her off for the time being, and again I suspect this is probably the culprit of the altered mental status, but I am going to get an ABG and a urine. Should she not clear, I would have a low threshold for CAT scan. 2. Hypertension: Holding meds at this point. She is hypotensive. Again, I suspect that she is hypotensive in the setting of adrenal insufficiency. 3. Atrial fibrillation: Her rate is controlled. She is no longer on blood thinners. Her amiodarone was stopped. 4. Chronic obstructive pulmonary disease: Continue meds as prescribed. 5. Gastroesophageal reflux disease: Continue meds as prescribed. 6. Polio: Supportive care. 7. Hyperlipidemia: Continue meds as prescribed. 8. History of lower extremity edema: It appears to be at her baseline. 9. Recent cellulitis: Appears to be improved. 10. [id number] renal failure: Baseline creatinine is 1.2 to 1.3. I suspect the creatinine is elevated in the setting of her having some diarrhea and vomiting and anorexia. It is probably prerenal. I will get a FENa. Also the Bactrim may be contributing, which we are stopping as the cellulitis has now cleared, and we will hydrate her and follow these labs. 11. Indeterminant troponin: Again, her baseline does appear to be mildly elevated, but I would check to trend these and follow. Should they remain elevated, we will get Cardiology consult. EKG appears to be unstable. 12. DVT prophylaxis: She is high risk, we will place on heparin subcu. 13. Code status: She is a DNR. There is a MOLST in the chart. TIME SPENT: Time spent on the admission was 60 minutes; greater than half the time was spent [id number] with the patient obtaining my history and physical, the other half of the time was spent going over the plan of care with the patient and implementing the plan of care. I discussed the plan of care with my attending, Dr. Montano, he is in agreement. MANE CHIU, ZULEIKA [id number]/CPS #: [id number] CARLY
[2017-06-07] MEDS: Heparin VIAL(*) 5000 UNITS/ML VIAL (FIVE THOUSAND) SUBCUT SCH (22:00)
[2017-06-07] MEDS: Potassium Chlor TAB* 10 MEQ TAB.ER PO SCH (22:00)
[2017-06-07] MEDS: rOPINIRole TAB* 1 MG PO SCH (22:00)
[2017-06-08] MEDS: Hydrocortisone INJ* 100 MG VIAL IV SCH ×3 (02:24→18:49)
[2017-06-08] MEDS: Albuterol 2.5 MG/3 ML NEB.SOL* (0.083%) INH PRN ×2 (02:30→08:42)
[2017-06-08] MEDS: NS 0.9% 1000 ML* 1,000 ML IV SCH ×3 (04:00→23:57)
[2017-06-08 05:52] LABS: Hematocrit 30 % (35-47); Hemoglobin 9.5 g/dl (12.0-16.0); Mean Corpuscular HGB Conc 31 g/dl (31-36); Mean Corpuscular Hemoglobin 25 pg (27-31); Mean Corpuscular Volume 80 fL (80-97); Mean Platelet Volume 8 um3 (7.4-10.4); Red Blood Count 3.82 10^6/ul (4.0-5.4); Red Cell Distribution Width 18 % (10.5-15); White Blood Count 12.6 10^3/ul (3.5-10.8)
[2017-06-08] MEDS: Heparin VIAL(*) 5000 UNITS/ML VIAL (FIVE THOUSAND) SUBCUT SCH ×3 (05:52→22:30)
[2017-06-08 05:53] LABS: Comments Flag Yes
[2017-06-08 05:54] LABS: Add Diff/Slide Review? Slide Review Added
[2017-06-08] MEDS ORDERED: Levothyroxine TAB* 100 MCG TAB PO SCH (06:00)
[2017-06-08 06:12] LABS: Troponin I 0.05 ng/mL (<0.04)
[2017-06-08 06:13] LABS: Calcium 8.8 mg/dL (8.6-10.3); EGFR African American 18.6 (>60); EGFR Non-African American 14.4 (>60)
[2017-06-08 06:29] LABS: Potassium 5.3 mmol/L (3.5-5.0)
[2017-06-08] MEDS: Albuterol/Ipratropium RESP(NF) MDI (Combivent Respimat) INH SCH ×4 (08:42→20:40)
[2017-06-08] MEDS: Budesonide NEB* 0.5 MG/2 ML NEB.SOLN INH SCH ×2 (08:42→20:01)
[2017-06-08] MEDS: Potassium Chlor TAB* 10 MEQ TAB.ER PO SCH ×2 (09:21→15:43)
[2017-06-08] MEDS: Atorvastatin* 20 MG TAB PO SCH (09:21)
[2017-06-08] MEDS: Allopurinol TAB* 300 MG PO SCH (09:21)
[2017-06-08] MEDS ORDERED: Haloperidol INJ IV/IM* 5 MG/ML AMP ONE (12:38)
[2017-06-08] MEDS: Haloperidol INJ IV/IM* 5 MG/ML AMP IV SLOW PU PRN (12:40)
[2017-06-08] MEDS ORDERED: LORazepam INJ* 2 MG/ML 1 ML VIAL ONE (13:30)
--- NOTE | 2017-06-08 14:31 | PN ---
Critical Care Services: 86 yo female with multiple medical problems admitted last night with agitated confusion and hypotension, thought to be secondary to adrenal insufficiency - started on hydrocortisone 100 mg IV TID - Vasopressor Rx (norepinephrine) has since been discontinued, but patient continues to be agitated and confused. Vital Signs: Temp Pulse Resp BP SpO2 FiO2 98.8 F 105 24 124/80 93 40 Physical Exam: Gen:Awake but agitated and disoriented. HEENT:No apparent lateral gaze paralysis. Lungs:Diminished breath sounds. Occasional rhonchi but no wheezes. Cardiac: Irreg rhythm Abdomen: Not distended Extremities: 3+ edema Fluid Balance (Past 24 Hours): 06/08/17 06:59 Intake Total 1189 Output Total 175 Balance +1014 Weight 179 lb Intake: IV Fluids 1164 NS (0.9%) 1164 IVPB NS (0.9%) Oral 25 Output: Xavier 175 Other: Date of Last Bowel 06/06/17 Movement Labs: 06/08/17 06/08/17 06/08/17 05:45 05:45 05:45 WBC 12.6 H Hgb 9.5 L Hct 30 L Plt Count 255 Sodium 133 Potassium 5.3 Chloride 98 Carbon Dioxide 28 BUN 40 Creatinine 3.07 Glucose 94 Lactic Acid 1.2 Calcium 8.8 Troponin I 0.05 H* Studies: CXR: Interstitial infiltrates bilaterally, with cystic changes in right lower lung field. Nutrition: Unrestricted diet - Intake poor Impression: Cause of the agitated confusion is unclear. Doubt adrenal insufficiency or uremia. Thiamine deficiency (because of poor appetite recently) and gabapentin withdrawal are possibilities. No signs of sepsis. Plan: 1. Start thiamine. 2. Cultures of blood and urine (pending). 3. Continue outpatient gabapentin regimen. Critical Care Time: 50 minutes (Not including time spent discussing case with family)
[2017-06-08] MEDS ORDERED: Gabapentin CAP(*) 400 MG PO ONE (15:00)
[2017-06-08] MEDS ORDERED: Thiamine IV* 100 MG/ML 2 ML VIAL IV SCH (16:00)
--- NOTE | 2017-06-08 18:03 | ECHO ---
Patient: SANDY MANLEY [facility] Rec#: [id number] : 1930 Date: 06/08/2017 Age: 86y Height: 142.2 cm / 56.0 in Weight: 81.2 kg / 179.0 lbs Sex: F BSA: 1.7 Room#: ICU 5 Admit Date#: 06/07/2017 Type: Inpatient Referring: Nirav George MD Reading: Nirav Fuentes MD Ventilation Equipment Tender: Jesenia Rodriguez RN RDCS Transthoracic Echocardiogram Indication: Cardiomegaly, hypotension BP: 122/83 HR: 102 Rhythm: Tachycardia Findings History: A. fib, COPD, HTN, HLD, polio, severe kyphosis, lower extremity edema, renal insufficiency Technical Comments: The study is technically limited due to poor acoustic windows. The study is technically limited due to patient body habitus. The study is technically limited due to the patient's history of COPD. The study was technically limited due to the patient's inability to lay in the left lateral decubitus position. Completed at 1750. Left Ventricle: The left ventricular chamber size is normal. Global left ventricular wall motion and contractility are within normal limits. There is normal left ventricular systolic function. The estimated ejection fraction is 55-60%. Visually estimated LVEF is closer to60%. There is septal flattening of the interventricular septum consistent with right ventricular volume or pressure overload. The assessment of diastolic function is non-diagnostic. Left Atrium: The left atrium is moderate to severely dilated. Right Ventricle: The right ventricle is mildly dilated. The right ventricular global systolic function is mildly to moderately reduced. Right Atrium: The right atrium is moderately dilated. Aortic Valve: The aortic valve is trileaflet. The aortic valve leaflets are mildly thickened. Systolic excursion of the right coronary cusp is reduced. There is no evidence of aortic regurgitation. There is no evidence of aortic stenosis. Mitral Valve: There is mitral annular calcification. The mitral valve leaflets are mildly thickened. There is mild mitral regurgitation. There is mild mitral stenosis. Tricuspid Valve: The tricuspid valve leaflets are normal. There is moderate tricuspid regurgitation. The right ventricular systolic pressure is estimated at 49 mmHg. There is evidence of moderate pulmonary hypertension. There is no tricuspid stenosis. Pulmonic Valve: The pulmonic valve structure is not well visualized. The pulmonic valve appears normal. There is a trace pulmonic regurgitation. There is no pulmonic stenosis. Pericardium: There is no significant pericardial effusion. A pericardial fat pad is visualized. Aorta: There is no dilatation of the ascending aorta. The aortic arch is not well visualized. There is no dilation of the aortic root. Pulmonary Artery: The main pulmonary artery is not well visualized. Venous: The venous system is not well visualized. The inferior vena cava is not visualized. Conclusions The study is technically limited due to poor acoustic windows. The study is technically limited due to patient body habitus. The study is technically limited due to the patient's history of COPD. The study was technically limited due to the patient's inability to lay in the left lateral decubitus position. The right ventricle is mildly dilated. The right ventricular global systolic function is mildly to moderately reduced. The left atrium is moderate to severely dilated. There is mild mitral regurgitation. The right atrium is moderately dilated. There is moderate tricuspid regurgitation. There is evidence of moderate pulmonary hypertension. Compared to report of study from 05/29/2017 thee right ventricle is mildy increased in size and appears be mild to moderately hypokinetic in limited available views. The degree of tricuspid regurgitation has increased(was reported as mild to moerate). The mild septal flattening now seen was not reported on prior study. Measurements Name Value Normal Range RVIDd (AP) 2D 3.5 cm (0.9 - 2.6) RVDdMajor (2D) 4.2 cm (2.2 - 4.4) RAd ISD 4CH 6.9 cm (3.4 - 4.9) RA (A4C)W 4.7 cm (2.9 - 4.6) IVSd (2D) 0.9 cm (0.6 - 1) LVPWd (2D) 0.9 cm (0.6 - 1) LVIDd (2D) 3.6 cm (3.6 - 5.4) LVIDs (2D) 2.8 cm - LV FS (2D) 22 % (25 - 45) Aortic Annulus 1.7 cm (1.4 - 2.6) Ao root diameter (2D) 3.5 cm (2.1 - 3.5) Ascending Ao 2.6 cm (2.1 - 3.4) LA dimension (AP) 2D 4.1 cm (2.3 - 3.8) LAd ISD 4CH 7.5 cm (2.9 - 5.3) LA ISD 4CH W 4.2 cm (2.5 - 4.5) Name Value Normal Range LA ESV SP 4CH (A/L) 82 ml - LA ESV SP 2CH (A/L) 65 ml - LA ESV BP (A/L) 73 ml - LA ESV BP (A/L) index 43.2 ml/m2 - LA ESV SP 4CH (MOD) 79 ml - LA ESV SP 2CH (MOD) 62 ml - Name Value Normal Range MV E-wave Vmax 1.5 m/sec - MV deceleration time 192 msec - MV A-wave Vmax 0.52 m/sec - MV E:A ratio 2.8 ratio - LV septal e' Vmax 0.1 m/sec - LV lateral e' Vmax 0.09 m/sec - LV E:e' septal ratio 15 ratio - LV E:e' lateral ratio 16.7 ratio - Name Value Normal Range AV Vmax 1.4 m/sec - AV VTI 25.2 cm - AV peak gradient 7.1 mmHg - AV mean gradient 4 mmHg - LVOT Vmax 0.95 m/sec - LVOT VTI 17.4 cm - LVOT peak gradient 3.6 mmHg - LVOT mean gradient 2 mmHg - Name Value Normal Range MV Vmax 1.5 m/sec - MV VTI 30.8 cm - MV peak gradient 8.7 mmHg - MV mean gradient 3.4 mmHg - MV PHT 78 msec - MVA (PHT) 2.8 cm2 - Name Value Normal Range TR Vmax 3.2 m/sec - TR peak gradient 41 mmHg - RAP 8 mmHg - RVSP 49 mmHg - Name Value Normal Range PV Vmax 1.1 m/sec -
[2017-06-08 18:11] LABS: Urine Bacteria Absent (Absent); Urine Bilirubin Negative (Negative); Urine Glucose Negative (Negative); Urine Nitrite Negative (Negative)
--- NOTE | 2017-06-08 18:36 | ED ---
Tc Tripp Angela, scribed for Kehinde Rodriguez MD on 06/07/17 at 1604 . Altered Mental Status - HPI Summary HPI Summary: This pt is a 86 y/o female presenting to [facility] c/o increased confusion and SOB over the past 2 days. Per daughter, the pt has been more confused since she started antibiotics a few days ago. Per daughter, the antibiotics don't seem to be effective. Pt states feeling SOB and dizziness. She denies fever, cough, SOB , chest pain. PMHx includes atrial fibrillation, COPD, HTN. - History Of Current Complaint Chief Complaint: EDAltMentalStatus Stated Complaint: AMS Time Seen by Provider: 06/07/17 16:00 Hx Obtained From: Patient Onset/Duration: Still Present Timing: Lasting Days Character: Confusion Alleviating Factor(s): Nothing Associated Signs And Symptoms: Negative: Fever - Allergies/Home Medications Allergies/Adverse Reactions: Allergies Allergy/AdvReac Type Severity Reaction Status Date / Time Clarithromycin [From Biaxin] Allergy Rash Verified 06/07/17 16:00 Home Medications: Home Medications Metoprolol Tartrate TAB* [Lopressor TAB*] 25 mg PO BID 06/07/17 [History Confirmed 06/07/17] Potassium Chlor TAB* [Klor Con ER TAB 10 MEQ*] 10 meq PO QID 06/07/17 [History Confirmed 06/07/17] PMH/Surg Hx/FS Hx/Imm Hx Endocrine/Hematology History: Reports: Hx Anticoagulant Therapy - coumadin for a. fib, Hx Thyroid Disease - hypothyroidism - takes levothyroxine, Hx Anemia - Vit B 12 - receives cyanocobalamin monthly, Other Endocrine/Hematological Disorders - tapering down prednisone - recent concern for adrenal fatigue Denies: Hx Diabetes Cardiovascular History: Reports: Hx Atrial Fibrillation - amiodorone, coumadin, Hx Hypotension, Hx Hypertension - lisinopril (doesn't take), tenormin, Other Cardiovascular Problems/Disorders - furosemide 60mg BID for LE edema Denies: Hx Cardiac Arrest, Hx Hypercholesterolemia - per pt, no high colesterol nor h/o OK, CVA but takes crestor, Hx Myocardial Infarction, Hx Pacemaker/ICD Respiratory History: Reports: Hx Asthma, Hx Chronic Obstructive Pulmonary Disease (COPD) - HOME O2 / 2L + budesonide QID, combivent, fluticasone, montelukast GI History: Reports: Hx Gastroesophageal Reflux Disease - ranitidine (has famotidine on list but doesn't take), Other GI Disorders - colace for constipation PRN History: Reports: Other Problems/Disorders - "h/o renal failure" Denies: Hx Dialysis Musculoskeletal History: Reports: Hx Arthritis - OA, Hx Back Problems - chronic back pain - takes gabapentin, requip RLS, Hx Gout - takes colchicine for flair ups, Hx Scoliosis, Other Musculoskeletal History - polio; Vit D def - takes supplement Sensory History: Reports: Hx Cataracts, Hx Contacts or Glasses Denies: Hx Hearing Aid Opthamlomology History: Reports: Hx Cataracts, Hx Contacts or Glasses Neurological History: Denies: Hx Dementia, Hx Seizures, Other Neuro Impairments/Disorders Psychiatric History: Denies: Hx Panic Disorder - Surgical History Surgery Procedure, Year, and Place: KNEE 2002, HAND 20+YRS AGO, BACK SURGERY FOR SCOLIOSIS AGE 14, TOTAL HYSTERECTOMY, CATARACTS, RETINA SURGERY TO REPLACE A HOLE IN RETINA 1993(?) Infectious Disease History: No Infectious Disease History: Denies: Traveled Outside the [place] in Last 30 Days - Family History Known Family History: Positive: Cardiac Disease - Social History Alcohol Use: None Hx Substance Use: No Substance Use Type: Reports: None Hx Tobacco Use: No Smoking Status (MU): Never Smoked Tobacco Review of Systems Positive: Other - increased confusing. . Negative: Fever, Chills Eyes: Negative Negative: Chest Pain Positive: Shortness Of Breath. Negative: Cough Neurological: Other - confusion, dizziness All Other Systems Reviewed And Are Negative: Yes Physical Exam - Summary Physical Exam Summary: VITAL SIGNS: Reviewed. GENERAL: Patient is an older female, ill-looking. Patient is not in any acute respiratory distress. HEAD AND FACE: No signs of trauma. No ecchymosis, hematomas or skull depressions. No sinus tenderness. EYES: PERRLA, EOMI x 2, No injected conjunctiva, no nystagmus. EARS: Hearing grossly intact. Ear canals and tympanic membranes are within normal limits. MOUTH: Oropharynx within normal limits. NECK: Supple, trachea is midline, no adenopathy, no JVD, no carotid bruit, no c- spine tenderness, neck with full ROM. CHEST: Symmetric, no tenderness at palpation LUNGS: There are crackles at both bases of the lungs. CVS: Regular rate and rhythm, S1 and S2 present, no murmurs or gallops appreciated. ABDOMEN: Soft, non-tender. No signs of distention. No rebound no guarding, and no masses palpated. Bowel sounds are normal. EXTREMITIES: FROM in all major joints, no cyanosis or clubbing. There is LE edema 2+ bilaterally from the thighs down. NEURO: Alert and oriented x 3. No acute neurological deficits. Speech is normal and follows commands. SKIN: Dry and warm Triage Information Reviewed: Yes Vital Signs On Initial Exam: Initial Vitals Temp Pulse Resp BP Pulse Ox 96 F 73 20 79/54 95 06/07/17 15:47 06/07/17 15:47 06/07/17 15:47 06/07/17 15:47 06/07/17 15:47 Vital Signs Reviewed: Yes Diagnostics - Vital Signs Vital Signs Temp Pulse Resp BP Pulse Ox 06/07/17 15:47 96 F 73 20 79/54 95 - Laboratory Lab Results: Lab Results 06/07/17 06/07/17 06/07/17 Range/Units 16:15 16:15 16:15 WBC (3.5-10.8) 10^3/ul RBC (4.0-5.4) 10^6/ul Hgb (12.0-16.0) g/dl Hct (35-47) % MCV (80-97) fL MCH (27-31) pg MCHC (31-36) g/dl RDW (10.5-15) % Plt Count (150-450) 10^3/ul MPV (7.4-10.4) um3 Neut % (Auto) (38-83) % Lymph % (Auto) (25-47) % [place] % (Auto) (1-9) % Eos % (Auto) (0-6) % Baso % (Auto) (0-2) % Absolute Neuts (auto) (1.5-7.7) 10^3/ul Absolute Lymphs (auto) (1.0-4.8) 10^3/ul Absolute Monos (auto) (0-0.8) 10^3/ul Absolute Eos (auto) (0-0.6) 10^3/ul Absolute Basos (auto) (0-0.2) 10^3/ul Absolute Nucleated RBC 10^3/ul Nucleated RBC % ESR (0-40) mm/Hr INR (Anticoag Therapy) 1.26 H (0.89-1.11) APTT 34.6 (26.0-36.3) seconds Fibrinogen 416 H (110.8-404.3) mg/dL Patient Temperature ABG pH (7.35-7.45) ABG pH (Temp Correct) ABG pCO2 (35-45) mmHg ABG pCO2 (Temp Corrct ABG pO2 ABG pO2 (Temp Correct ABG HCO3 (19-31) mmol/L ABG O2 Saturation (95-98) % ABG Base Excess (-2.0-2.0) Respiration Rate O2 Delivery Device Ventilator Type Vent Mode FiO2 Inspiratory Time PEEP Pressure Support Pressure Control EPAP IPAP BiPAP Sodium 132 L (133-145) mmol/L Potassium 4.5 (3.5-5.0) mmol/L Chloride 93 L (101-111) mmol/L Carbon Dioxide 31 (22-32) mmol/L Anion Gap 8 (2-11) mmol/L BUN 40 H (6-24) mg/dL Creatinine 3.16 H (0.51-0.95) mg/dL Est GFR ( Amer) 18.0 (>60) Est GFR (Non-Af Amer) 14.0 (>60) BUN/Creatinine Ratio 12.7 (8-20) Glucose 106 H (70-100) mg/dL Lactic Acid (0.5-2.0) mmol/L Calcium 9.2 (8.6-10.3) mg/dL Total Bilirubin 0.30 (0.2-1.0) mg/dL AST 26 (13-39) U/L ALT 18 (7-52) U/L Alkaline Phosphatase 105 H (34-104) U/L Total Creatine Kinase 41 (10-223) U/L Troponin I 0.06 H* (<0.04) ng/mL C-Reactive Protein 20.43 H (< 5.00) mg/L B-Natriuretic Peptide 453 H ( - 100) pg/mL Total Protein 6.1 L (6.4-8.9) g/dL Albumin 3.5 (3.2-5.2) g/dL Globulin 2.6 (2-4) g/dL Albumin/Globulin Ratio 1.3 (1-3) Procalcitonin (<0.6) ng/mL Cortisol 10.36 mcg/dL Urine Color Urine Appearance Urine pH (5-9) Ur Specific [place] (1.010-1.030) Urine Protein (Negative) Urine Ketones (Negative) Urine Blood (Negative) Urine Nitrate (Negative) Urine Bilirubin (Negative) Urine Urobilinogen (Negative) Ur Leukocyte Esterase (Negative) Urine WBC (Auto) (Absent) Urine RBC (Auto) (Absent) Urine Bacteria (Absent) Hyaline Casts (Absent) Urine Glucose (Negative) Influenza A (Rapid) (Negative) Influenza B (Rapid) (Negative) 06/07/17 06/07/17 06/07/17 Range/Units 16:15 16:15 16:15 WBC 8.5 (3.5-10.8) 10^3/ul RBC 3.77 L (4.0-5.4) 10^6/ul Hgb 9.7 L (12.0-16.0) g/dl Hct 30 L (35-47) % MCV 79 L (80-97) fL MCH 26 L (27-31) pg MCHC 33 (31-36) g/dl RDW 18 H (10.5-15) % Plt Count 245 (150-450) 10^3/ul MPV 8 (7.4-10.4) um3 Neut % (Auto) 80.8 (38-83) % Lymph % (Auto) 10.1 L (25-47) % [place] % (Auto) 8.6 (1-9) % Eos % (Auto) 0.1 (0-6) % Baso % (Auto) 0.4 (0-2) % Absolute Neuts (auto) 6.8 (1.5-7.7) 10^3/ul Absolute Lymphs (auto) 0.9 L (1.0-4.8) 10^3/ul Absolute Monos (auto) 0.7 (0-0.8) 10^3/ul Absolute Eos (auto) 0 (0-0.6) 10^3/ul Absolute Basos (auto) 0 (0-0.2) 10^3/ul Absolute Nucleated RBC 0.03 10^3/ul Nucleated RBC % 0.4 ESR 41 H (0-40) mm/Hr INR (Anticoag Therapy) (0.89-1.11) APTT (26.0-36.3) seconds Fibrinogen (110.8-404.3) mg/dL Patient Temperature ABG pH (7.35-7.45) ABG pH (Temp Correct) ABG pCO2 (35-45) mmHg ABG pCO2 (Temp Corrct ABG pO2 ABG pO2 (Temp Correct ABG HCO3 (19-31) mmol/L ABG O2 Saturation (95-98) % ABG Base Excess (-2.0-2.0) Respiration Rate O2 Delivery Device Ventilator Type Vent Mode FiO2 Inspiratory Time PEEP Pressure Support Pressure Control EPAP IPAP BiPAP Sodium (133-145) mmol/L Potassium (3.5-5.0) mmol/L Chloride (101-111) mmol/L Carbon Dioxide (22-32) mmol/L Anion Gap (2-11) mmol/L BUN (6-24) mg/dL Creatinine (0.51-0.95) mg/dL Est GFR ( Amer) (>60) Est GFR (Non-Af Amer) (>60) BUN/Creatinine Ratio (8-20) Glucose (70-100) mg/dL Lactic Acid 1.7 (0.5-2.0) mmol/L Calcium (8.6-10.3) mg/dL Total Bilirubin (0.2-1.0) mg/dL AST (13-39) U/L ALT (7-52) U/L Alkaline Phosphatase (34-104) U/L Total Creatine Kinase (10-223) U/L Troponin I (<0.04) ng/mL C-Reactive Protein (< 5.00) mg/L B-Natriuretic Peptide ( - 100) pg/mL Total Protein (6.4-8.9) g/dL Albumin (3.2-5.2) g/dL Globulin (2-4) g/dL Albumin/Globulin Ratio (1-3) Procalcitonin 0.1 (<0.6) ng/mL Cortisol mcg/dL Urine Color Urine Appearance Urine pH (5-9) Ur Specific [place] (1.010-1.030) Urine Protein (Negative) Urine Ketones (Negative) Urine Blood (Negative) Urine Nitrate (Negative) Urine Bilirubin (Negative) Urine Urobilinogen (Negative) Ur Leukocyte Esterase (Negative) Urine WBC (Auto) (Absent) Urine RBC (Auto) (Absent) Urine Bacteria (Absent) Hyaline Casts (Absent) Urine Glucose (Negative) Influenza A (Rapid) (Negative) Influenza B (Rapid) (Negative) 06/07/17 06/07/17 06/07/17 Range/Units 16:49 17:36 18:44 WBC (3.5-10.8) 10^3/ul RBC (4.0-5.4) 10^6/ul Hgb (12.0-16.0) g/dl Hct (35-47) % MCV (80-97) fL MCH (27-31) pg MCHC (31-36) g/dl RDW (10.5-15) % Plt Count (150-450) 10^3/ul MPV (7.4-10.4) um3 Neut % (Auto) (38-83) % Lymph % (Auto) (25-47) % [place] % (Auto) (1-9) % Eos % (Auto) (0-6) % Baso % (Auto) (0-2) % Absolute Neuts (auto) (1.5-7.7) 10^3/ul Absolute Lymphs (auto) (1.0-4.8) 10^3/ul Absolute Monos (auto) (0-0.8) 10^3/ul Absolute Eos (auto) (0-0.6) 10^3/ul Absolute Basos (auto) (0-0.2) 10^3/ul Absolute Nucleated RBC 10^3/ul Nucleated RBC % ESR (0-40) mm/Hr INR (Anticoag Therapy) (0.89-1.11) APTT (26.0-36.3) seconds Fibrinogen (110.8-404.3) mg/dL Patient Temperature Not Reportable ABG pH 7.30 L (7.35-7.45) ABG pH (Temp Correct) Not Reportable ABG pCO2 59 H (35-45) mmHg ABG pCO2 (Temp Corrct Not Reportable ABG pO2 TNP ABG pO2 (Temp Correct TNP ABG HCO3 26.4 (19-31) mmol/L ABG O2 Saturation 95.9 (95-98) % ABG Base Excess 1.9 (-2.0-2.0) Respiration Rate Not Reportable O2 Delivery Device Nasal cannula Ventilator Type Not Reportable Vent Mode Not Reportable FiO2 Not Reportable Inspiratory Time Not Reportable PEEP Not Reportable Pressure Support Not Reportable Pressure Control Not Reportable EPAP Not Reportable IPAP Not Reportable BiPAP Not Reportable Sodium (133-145) mmol/L Potassium (3.5-5.0) mmol/L Chloride (101-111) mmol/L Carbon Dioxide (22-32) mmol/L Anion Gap (2-11) mmol/L BUN (6-24) mg/dL Creatinine (0.51-0.95) mg/dL Est GFR ( Amer) (>60) Est GFR (Non-Af Amer) (>60) BUN/Creatinine Ratio (8-20) Glucose (70-100) mg/dL Lactic Acid (0.5-2.0) mmol/L Calcium (8.6-10.3) mg/dL Total Bilirubin (0.2-1.0) mg/dL AST (13-39) U/L ALT (7-52) U/L Alkaline Phosphatase (34-104) U/L Total Creatine Kinase (10-223) U/L Troponin I (<0.04) ng/mL C-Reactive Protein (< 5.00) mg/L B-Natriuretic Peptide ( - 100) pg/mL Total Protein (6.4-8.9) g/dL Albumin (3.2-5.2) g/dL Globulin (2-4) g/dL Albumin/Globulin Ratio (1-3) Procalcitonin (<0.6) ng/mL Cortisol mcg/dL Urine Color Yellow Urine Appearance Cloudy Urine pH 5.0 (5-9) Ur Specific [place] 1.014 (1.010-1.030) Urine Protein 2+(100 mg/dl) H (Negative) Urine Ketones Negative (Negative) Urine Blood Negative (Negative) Urine Nitrate Negative (Negative) Urine Bilirubin Negative (Negative) Urine Urobilinogen Negative (Negative) Ur Leukocyte Esterase Negative (Negative) Urine WBC (Auto) Absent (Absent) Urine RBC (Auto) Absent (Absent) Urine Bacteria Absent (Absent) Hyaline Casts Present H (Absent) Urine Glucose Negative (Negative) Influenza A (Rapid) Negative (Negative) Influenza B (Rapid) Negative (Negative) Result Diagrams: 06/08/17 05:45 06/08/17 05:45 Lab Statement: Any lab studies that have been ordered have been reviewed, and results considered in the medical decision making process. - Radiology chest XR Xray Interpretation: Positive (See Comments) - IMPRESSION: enlarged cardiac silhouette with mild interstitial congestion. ED physician has reviewed this radiology report and agrees. Radiology Interpretation Completed By: Radiologist - EKG 1600 Cardiac Rate: NL - 65 bpm EKG Rhythm: Atrial Fibrillation EKG Interpretation: Q waves in III and aVF. Diffuse T wave abnormalities. Altered Mental Statu Course/Dx - Course Assessment/Plan: This pt is a 86 y/o female presenting to [facility] c/o increased confusion and SOB over the past 2 days. Per daughter, the pt has been more confused since she started antibiotics a few days ago. Per daughter, the antibiotics don't seem to be effective. Pt states feeling SOB and dizziness. She denies fever, cough, SOB, chest pain. PMHx includes atrial fibrillation, COPD, HTN. Test results show chronic anemia, sodium of 132, acute renal failure , troponin of 0.06. BNP of 453, CRP of 20. UA is negative for UTI. Influenza A and B are negative. Chest XR shows enlarged cardiac silhouette with mild interstitial congestion. EKG reveals atrial fibrillation at 65 bpm with Q waves in III and aVF, along with diffuse T wave abnormalities. In the ED course, the pt was hypotensive and was given 1 liter of IV fluids bolus. She continues to be hypotensive. She has 2 IV access and I placed levophed, trying to increase pt s blood pressure. I discussed with the pt and pts daughter for an IV central access and they declined. The pts daughter reports the pt is DNI and DNR, and does not want her to have central IV access. I will try to give norepinephrine to increase BP, only for a short time to see if we can increase BP. At this time I discussed the case with Dr. Montano who has accepted the pt for admission. Even though the pt is hypotensive, the pt is alert and oriented x2 which is at her baseline. The pt does not seem to be symptomatic. We need to r/ o adrenal crises. - Diagnoses Discharge Diagnoses: Hypotension, Acute renal failure, CHF (congestive heart failure), increased troponin, rule out OK - Provider Notifications Discussed Care Of Patient With: Arnel Montano Instructed by Provider To: Other - I discussed the case with Dr. Montano, hospitalist. He has agreed to admit the pt. Discharge - Discharge Plan Condition: Stable Disposition: ADMITTED TO [facility] The documentation as recorded by the Tc eugene Angela accurately reflects the service I personally performed and the decisions made by me, Kehinde Rodriguez MD.
[2017-06-08] MEDS ORDERED: Levothyroxine INJ* 100 MCG/5 ML VIAL IV ONE (19:00)
[2017-06-08] MEDS: rOPINIRole TAB* 1 MG PO SCH (21:23)
[2017-06-09] MEDS: Hydrocortisone INJ* 100 MG VIAL IV SCH (03:08)
[2017-06-09] MEDS: Heparin VIAL(*) 5000 UNITS/ML VIAL (FIVE THOUSAND) SUBCUT SCH (05:42)
[2017-06-09] MEDS ORDERED: Levothyroxine INJ* 100 MCG/5 ML VIAL IV SCH (06:00)
[2017-06-09 06:09] LABS: Hematocrit 29 % (35-47); Mean Corpuscular HGB Conc 31 g/dl (31-36); Mean Corpuscular Hemoglobin 25 pg (27-31); Mean Corpuscular Volume 81 fL (80-97); Mean Platelet Volume 9 um3 (7.4-10.4); Red Blood Count 3.55 10^6/ul (4.0-5.4); Red Cell Distribution Width 18 % (10.5-15)
[2017-06-09 06:20] LABS: BUN/Creatinine Ratio 15.3 (8-20); Calcium 8.6 mg/dL (8.6-10.3); EGFR African American 22.3 (>60); EGFR Non-African American 17.3 (>60)
[2017-06-09] MEDS: Haloperidol INJ IV/IM* 5 MG/ML AMP IV SLOW PU PRN (06:38)
[2017-06-09] MEDS: Budesonide NEB* 0.5 MG/2 ML NEB.SOLN INH SCH (07:13)
[2017-06-09] MEDS: Albuterol 2.5 MG/3 ML NEB.SOL* (0.083%) INH PRN (07:13)
[2017-06-09] MEDS: Albuterol/Ipratropium RESP(NF) MDI (Combivent Respimat) INH SCH (07:14)
[2017-06-09] MEDS: NS 0.9% 1000 ML* 1,000 ML IV SCH (09:21)
[2017-06-09] MEDS: Allopurinol TAB* 300 MG PO SCH (11:46)
[2017-06-09] MEDS: Atorvastatin* 20 MG TAB PO SCH (11:47)
[2017-06-09] MEDS ORDERED: Morphine INJ* 10 MG/ML 1 ML CARPUJECT IV ONE ×2 (13:00→13:45)
[2017-06-09] MEDS ORDERED: LORazepam INJ* 2 MG/ML 1 ML VIAL IV PUSH ONE ×2 (13:00→13:45)
[2017-06-09] MEDS ORDERED: LORazepam VIAL (for drip)* 100 MG in D5W 50 ML BAG* 50 ML IVPB SCH (13:00)
[2017-06-09] MEDS ORDERED: Morphine PCA 5 MG/ML * Titrate per Protocol PCA SCH (13:00)
[2017-06-09] MEDS ORDERED: LORazepam INJ* 2 MG/ML 1 ML VIAL ONE (13:51)
[2017-06-09] MEDS ORDERED: Morphine INJ* 10 MG/ML 1 ML CARPUJECT ONE (13:51)
[2017-06-09 14:24] VITALS: BP 123/81
[2017-06-09] MEDS ORDERED: Gabapentin CAP(*) 400 MG PO SCH (21:00)
--- NOTE | 2017-06-10 11:37 | DS ---
SUMMARY: DATE OF ADMISSION: 06/07/17 DATE : 06/09/17 HISTORY: The patient was an 86-year-old white female with a history of AFib, hypertension, COPD (on home O2), kyphoscoliosis, adrenal and renal insufficiency , who had been hospitalized a number of times in the past few months for a variety of medical problems. The patient was most recently brought to the emergency department here on 06/07/17 by her family because of difficulty with increasing fatigue and generalized weakness. The patient was noted to be hypotensive and, based on a prior diagnosis of adrenal insufficiency, she was given intravenous steroids and started on low-dose vasopressor Rx (which was weaned off shortly after admission to the ICU). After admission, the patient developed increasing somnolence, and arterial blood gases revealed acute hypercapnia with a PCO2 of 60 mmHg. The patient was a DNR and DNI, so a period of BiPAP ventilation was instituted, without improvement in mental status. There were no signs of active infection and no evidence of a neurologic illness. On the second hospital day, because of the patient's declining mental state and the absence of a reversible condition, the family decided to institute "comfort measures only" care (with agreement of the medical staff). Within a few hours after instituting comfort measures, the patient was noted to be apneic and pulseless, and was pronounced at 2:10 a.m. on 06/09/17. Family was present at the bedside, and denied an autopsy. FINAL DIAGNOSES: 1. Acute exacerbation of COPD with hypercapnic respiratory failure. 2. Atrial fibrillation 3. Adrenal insufficiency. 4. Renal failure. 5. Kyphoscoliosis. [id number] #: [id number] [email or web address]
== END 2017-06-09 14:10 | disposition expired | DRG 643 ==
LOC: ED 15:44 → ICU 18:53
PROVIDERS: ADMIT Internal Medicine; ATTEND Internal Medicine Critical Care Medicine
PROC: 3E033XZ Introduction of Vasopressor into Peripheral Vein, Percutaneous Approach (ICD-10-PCS; principal; 2017-06-08)
DX: E27.40 Unspecified adrenocortical insufficiency (principal); J96.02 Acute respiratory failure with hypercapnia; N17.9 Acute kidney failure, unspecified; I95.89 Other hypotension; J44.1 Chronic obstructive pulmonary disease with (acute) exacerbation; I48.91 Unspecified atrial fibrillation; M41.9 Scoliosis, unspecified; E03.9 Hypothyroidism, unspecified; K21.9 Gastro-esophageal reflux disease without esophagitis; G89.29 Other chronic pain; M19.90 Unspecified osteoarthritis, unspecified site; M54.9 Dorsalgia, unspecified; M10.9 Gout, unspecified; Z66 Do not resuscitate; I12.9 Hypertensive chronic kidney disease with stage 1 through stage 4 chronic kidney disease, or unspecified chronic kidney disease; N18.9 Chronic kidney disease, unspecified; E78.5 Hyperlipidemia, unspecified; R60.0 Localized edema; Z98.42 Cataract extraction status, left eye; Z88.1 Allergy status to other antibiotic agents; Z86.12 Personal history of poliomyelitis; Z90.710 Acquired absence of both cervix and uterus; Z82.49 Family history of ischemic heart disease and other diseases of the circulatory system; Z98.41 Cataract extraction status, right eye
CPT/HCPCS: 36415; 36600; 71020; 80048; 80053; 81003; 81015; 82533; 82550; 82803; 83605; 83880; 84145; 84484; 85025; 85027; 85384; 85610; 85652; 85730; 86140; 87040; 87086; 87502; 87641; 93005; 93306; 94640; 94660; 94760; A9270-GY; C1751; J1630; J1644; J1720; J2060; J2270; J2543; J3411